=== PATIENT | male | born 1960 | race Two or more races ===

== ENCOUNTER 2020-10-02 10:40 | Outpatient (REF) | payer MEDICARE, MEDICAID, SELFPAY ==
--- NOTE | ~2020-10-02 | XR_ITS ---
EXAMINATION: RIGHT SHOULDER 4 VIEWS LEFT SHOULDER 4 VIEWS CLINICAL INFORMATION: Pain COMPARISON: None TECHNIQUE: As above FINDINGS: Left shoulder: Minor glenoid spurring. Minor left apical pleural thickening. There is no evidence for any fracture or subluxation. No soft tissue calcifications. Right shoulder: Similar degree of minimal spurring. No fracture subluxation. No radiopaque loose body or focal bony lesion. XR/XR shoulder RT min 2V IMPRESSION: Minor spurring only as above.
--- NOTE | ~2020-10-02 | XR_ITS ---
EXAMINATION: RIGHT SHOULDER 4 VIEWS LEFT SHOULDER 4 VIEWS CLINICAL INFORMATION: Pain COMPARISON: None TECHNIQUE: As above FINDINGS: Left shoulder: Minor glenoid spurring. Minor left apical pleural thickening. There is no evidence for any fracture or subluxation. No soft tissue calcifications. Right shoulder: Similar degree of minimal spurring. No fracture subluxation. No radiopaque loose body or focal bony lesion. XR/XR shoulder LT min 2V IMPRESSION: Minor spurring only as above.
== END 2020-10-02 10:41 | disposition home or self-care (01) ==
LOC: HO.XRAY 10:40
PROVIDERS: PCP Family Medicine; Visit Provider Emergency Medicine
DX: M25.511 Pain in right shoulder (principal); M25.512 Pain in left shoulder
CPT/HCPCS: 73030

== ENCOUNTER 2020-10-26 09:39 | Outpatient (REF) | payer MEDICARE, MEDICAID, SELFPAY ==
--- NOTE | 2020-10-28 11:11 | MHC.AU.ANH ---
Adult Audiological Evaluation Date of Visit: 10/26/20 Cut Tobacco Bulker Used: Hong Konger- In Person Reason for Appointment: History of congenital hearing loss. Patient communicates in verbal Hong Konger. Patient has been using a pair of Phonak Pepper B50-UP's, obtained in 2017 while living in [place]. The left hearing aid has been lost. The right hearing aid was held together with tape, and was attached to the left mold. Ear History: Ear Deformity: None Reported Recent Ear Pain: Both Ears Family History of Hearing Loss?: Yes: Cousin Recent Ear Infections: None Reported Ear Infections in Childhood: None Reported History of Ear Wax Buildup: None Reported Previous Ear Surgery: None Reported Bothersome Tinnitus/Ringing/Noises in Ears: None Reported Ear used on the phone: Right Ear Blocked/Full Sensation in Ear(s): None Reported History of occupational noise exposure?: No History: No Medical History: Medical History: Headache, Heart Problems, High Blood Pressure Otoscopy: Right Ear: Unremarkable Left Ear: Unremarkable Tympanometry: Tympanometry performed due to: To assess integrity of the middle ear system Right Ear: Normal Middle Ear System (Type A) Left Ear: Normal Middle Ear System (Type A) Hearing Evaluation: Transducer(s) Used: Insert Earphones Method: Conventional Audiometry Stimuli Used: Pure Tones Right Ear: Description of Hearing: Severe to profound sensorineural hearing loss Left Ear: Description of Hearing: Severe to profound sensorineural hearing loss Speech Recognition Threshold (SRT): Method Used: Recorded Lists Stimuli Used: Hong Konger Trisyllable Words Right Ear: 90 dBHL Left Ear: 95 dBHL Word Discrimination: Method: Recorded Lists Word Lists Used: Lista Bisil?bica (Hong Konger) Right Ear: 76% at 105 dBHL Left Ear: 48% at 110 dBHL Recommendations: Audiological re-evaluation in one year. Per Phonak Target, the hearing aid he was wearing on the left ear was programmed for the right ear. It was held together with tape. The left hearing aid has been lost. He is unable to communicate without amplification. A prior authorization will be submitted to the patient's insurance for new hearing aids. Impressions were taken bilaterally and will be kept in Hold drawer until prior authorization is received. If able to proceed, a pair of Phonak Pepper P70-UP in [address] [place] [address] will be ordered, with canal-lock molds. Diagnosis: Primary Diagnosis: H90.3 Bilateral Sensorineural Hearing Loss Signature: Provider: Merry Burch, HUSEYIN-A
--- NOTE | 2020-10-28 11:12 | MHC.AU.MED ---
Medical Clearance for Hearing Instrumentation Date: 10/28/20 Patient Name: Bereket Parks Date of : 1960 Referring Provider: Adelaida Elizondo MD We have seen your patient on 10/26/20 and have determined that they are a candidate for amplification (See accompanying report). Specifically, they would benefit from: Hearing aid use in both ears There is a statute that addresses Medical Evaluation Requirements prior to fitting a patient with a hearing aid. According to [place] statute 265 CMR:6.03(1), (a) General. Except as provided in 265 CMR 6.03(1)(b), a paper wood cutter shall not sell a hearing aid unless the prospective user has presented to the paper wood cutter a written statement signed by a licensed physician that states that the patient's hearing loss has been medically evaluated and the patient may be considered a candidate for a hearing aid. The medical evaluation must have taken place within the preceding six months. Please note: Due to the [place] Statute referenced above, we cannot accept a signature other than that of a licensed physician. VARIETY PERFORMER and PA signatures cannot be accepted. I am in agreement with the above recommendation. There is no medical contraindication for hearing instrumentation. Physician Signature Date Physician Name (Printed)
--- NOTE | 2020-10-28 11:12 | MHC.AU.HAS ---
Hearing Aid Evaluation Date of Visit: 10/26/20 Slope Runner Used: Hebrew- In Person Historical Information: Description of Hearing: Severe to profound sensorineural hearing loss bilaterally Current personal amplification information, if applicable: Phonak Pepper B50-UP, obtained in 2018 in [place]. Summary: Patient was seen today for audiological evaluation (see separate report for details). He previously obtained a pair of Phonak Pepper B50-UP hearing aids in 2018 in [place]. The left side has been lost. The right side was held together with tape, and was being worn on the left side with the left mold. Patient is unable to communicate without hearing aids. Hearing Aid Prescription: Based on the individual?s shared listening needs, communication environments, dexterity, desire for connectivity, and personal preferences, the following prescription for amplification has been made: Right ear: Youth Director: Phonak Model: Pepper P70--UP Battery Size: 675 Color: 01 Beige Type of Mold: Canal-Lock Left ear: Youth Director: Phonak Model: Pepper P70-UP Battery Size: 675 Color: 01 Beige Type of Mold: Canal-Lock Action Taken/Action Needed: Earmold Impressions Taken Prior authorization to be requested Medical Clearance to be requested from PCP/ENT Hearing Instrument Fitting to be scheduled when materials arrive Primary Diagnosis: H90.3 Bilateral Sensorineural Hearing Loss Signature: Provider: Merry Burch, HUSEYIN-A
--- NOTE | 2020-12-24 07:58 | MHC.AU.HAS ---
Hearing Aid Evaluation Date of Visit: 10/26/20 Cooling Machine Operator Used: Yi- In Person Historical Information: Description of Hearing: Severe to profound sensorineural hearing loss bilaterally Current personal amplification information, if applicable: Phonak Pepper B50-UP, obtained in 2018 in [place]. Summary: Patient was seen today for audiological evaluation (see separate report for details). He previously obtained a pair of Phonak Pepper B50-UP hearing aids in 2018 in [place]. The left side has been lost. The right side was broken in several places, held together with tape, and was being worn on the left side with the left mold. The instrument had poor sound quality, as expected given its condition, and is not able to provide sufficient benefit. The repair warranty and loss/damage warranty has for both instruments. Patient has significant hearing loss and is unable to communicate without hearing aids. A new hearing aid will be needed to replace the lost left instrument. A replacement for the right side is also recommended, given that it is broken, functioning poorly, and out of warranty. It is also advisable to have a matching pair of instruments, as they are designed to work together. If the instruments were not matching, the patient would miss out of on several important benefits of a binaural fit, such as the background noise filtering. Having two different models would also lead to a unbalanced, undesirable sound perception, as each one would be processing sound differently. Hearing Aid Prescription: Based on the individual?s shared listening needs, communication environments, dexterity, desire for connectivity, and personal preferences, the following prescription for amplification has been made: Right ear: Metal Welder: Phonak Model: Pepper P70--UP Battery Size: 675 Color: 01 Beige Type of Mold: Canal-Lock Left ear: Metal Welder: Phonak Model: Pepper P70-UP Battery Size: 675 Color: 01 Beige Type of Mold: Canal-Lock Action Taken/Action Needed: Earmold Impressions Taken Prior authorization to be requested Medical Clearance to be requested from PCP/ENT Hearing Instrument Fitting to be scheduled when materials arrive Primary Diagnosis: H90.3 Bilateral Sensorineural Hearing Loss Signature: Provider: Merry Burch, CCC-A
== END 2020-10-26 09:40 | disposition home or self-care (01) ==
LOC: HO.SH 09:39
PROVIDERS: Visit Provider Family Medicine
DX: Z46.1 Encounter for fitting and adjustment of hearing aid (principal); H90.3 Sensorineural hearing loss, bilateral
CPT/HCPCS: 92557; 92567; 92591; V5275

== ENCOUNTER 2020-11-02 09:57 | Outpatient (REF) | payer MEDICARE, MEDICAID, SELFPAY ==
--- NOTE | ~2020-11-02 | XR_ITS ---
EXAMINATION: XR CERVICAL SPINE CLINICAL INFORMATION: Radiculopathy. COMPARISON: None. TECHNIQUE: AP, lateral, open-mouth, and bilateral oblique views of the cervical spine. FINDINGS: Straightening of the normal cervical lordosis, which may be positional or related to muscular spasm. Minimal grade 1 retrolisthesis of C6 and C7. No acute fracture. No loss of vertebral body height. Prominent multilevel loss of intervertebral disc height with anterior endplate ossific, most severe at C4-C7. Multilevel bilateral facet arthropathy. Diffuse multilevel bilateral neural foraminal stenosis. Normal atlantoaxial alignment. Unremarkable prevertebral soft tissues. XR/XR cervical spine 4V IMPRESSION: Straightening of the normal cervical lordosis, which may be positional or related to muscular spasm. Minimal grade 1 retrolisthesis of C6 and C7. Diffuse multilevel degenerative disc disease, most prominent at C4-C7. Multilevel bilateral facet arthropathy and bilateral neural foraminal stenosis.
== END 2020-11-02 09:58 | disposition home or self-care (01) ==
LOC: HO.XRAY 09:57
PROVIDERS: PCP Emergency Medicine; Visit Provider Emergency Medicine
DX: M54.10 Radiculopathy, site unspecified (principal)
CPT/HCPCS: 72050

== ENCOUNTER 2020-11-13 12:50 | Outpatient (REF) | payer MEDICARE, SELFPAY | END 2020-11-13 12:51 | disposition home or self-care (01) | LOC: HO.HOSX 12:50 | PROVIDERS: Visit Provider Physician Assistant | DX: Z13.89 Encounter for screening for other disorder (principal) ==

== ENCOUNTER → 2020-11-24 09:54 | Outpatient (BNVA) | payer MEDICARE, MEDICAID, SELFPAY | PROVIDERS: Visit Provider Physician Assistant | DX: M54.12 Radiculopathy, cervical region (principal) | CPT/HCPCS: 99202 ==

== ENCOUNTER 2020-11-25 10:12 | Outpatient (REF) | payer MEDICARE, MEDICAID, SELFPAY ==
--- NOTE | ~2020-11-25 | MR_ITS ---
EXAMINATION: MR CERVICAL SPINE WITHOUT CONTRAST CLINICAL INFORMATION: Bilateral shoulder and neck pain with laying down. No injury. Epidural injections 2015. COMPARISON: None. TECHNIQUE: MRI of the cervical spine was obtained using routine sequences without contrast. FINDINGS: There is maintained cervical lordosis. The vertebral heights and alignment is normal. There are disc desiccation changes at all disc levels with mild loss of disc height at C4-C5, C5-C6, C6-C7 and C7-T1 disc levels. The craniovertebral junction and the C1-C2 alignment is normal. The cervical medullary junction and CSF spaces normal. At C2-C3 disc level, there is no significant disc bulge, herniation or spinal canal stenosis. There is mild right neural foraminal narrowing from uncovertebral and facet joint hypertrophy. The left neural foramina is patent. The spinal canal is capacious. At C3-C4 disc level, there is small central disc herniation completely effacing the ventral thecal sac and mildly indenting the ventral cord with moderate AP canal stenosis. Mild narrowing of bilateral neural foramina slightly greater on the left from uncovertebral hypertrophic changes is noted. At C4-C5 disc level, there is a disc bulge/osteophyte complex flattening the ventral thecal sac and the cord and resulting in moderate canal stenosis. There is bilateral moderate narrowing of neural foramina from uncovertebral hypertrophic changes. At C5-C6 disc level, there is disc bulge/osteophyte complex effacing the ventral thecal sac and mildly flattening the cord resulting in moderate spinal canal stenosis. There is bilateral moderate narrowing of neural foramina. At C6-C7 disc levels, there is a disc bulge/osteophyte complex eccentric to left paramidline region resulting in dtyp-lr-marmwloz cord compression. There is severe narrowing of left and moderate right neural foramina from disc herniation/osteophyte complex and uncovertebral hypertrophic changes. At C7-T1 disc level, there is disc bulge/osteophyte complex resulting in moderate spinal canal stenosis. There is bilateral neural foraminal narrowing from uncovertebral hypertrophic changes. The cord signal is preserved. The bone marrow signal and paravertebral soft tissues are normal. MR/MR cervical spine wo con IMPRESSION: Multilevel degenerative disc bulge/osteophyte complex resulting in spinal canal stenosis at C3-C4, C5-C6, C6-C7 and C7-T1 disc levels. There is cord compression with flattening at C6-C7 disc level slightly eccentric to the left. There is bilateral narrowing of neural foramina at most of these disc levels, severe on the left at the C6-C7 disc level. There is no abnormal signal in the cord at this time. Results were called immediately to referring physician by phone at 11:33 AM,
== END 2020-11-25 10:13 | disposition home or self-care (01) ==
LOC: HO.MRI 10:12
PROVIDERS: Visit Provider Emergency Medicine
DX: M54.10 Radiculopathy, site unspecified (principal)
CPT/HCPCS: 72141

== ENCOUNTER → 2021-01-04 10:39 | Outpatient (BNVA) | payer MEDICARE, MEDICAID, SELFPAY | PROVIDERS: Visit Provider Anesthesiology | DX: M50.30 Other cervical disc degeneration, unspecified cervical region (principal); M54.12 Radiculopathy, cervical region; G89.4 Chronic pain syndrome | CPT/HCPCS: 99202 ==

== ENCOUNTER 2021-02-11 12:29 | Outpatient (REF) | payer MEDICARE, MEDICAID, SELFPAY ==
--- NOTE | 2021-02-11 14:00 | MHC.AU.HFA ---
Hearing Instrument Fitting- Adult- Binaural Date of Visit: 02/11/21 Topstitcher Lockstitch Used: Kazakh- In Person Hearing Instruments Dispensed: Right Ear: Crm Specialist: Phonak Model: Pepper P70--UP Serial Number: [id number] Repair Warranty: 04/11/2024 Loss and Damage Warranty: 04/11/2024 Service Plan: 02/11/2022 Battery Size: 675 Color: 01 Beige Type of Mold: Microsonic M2000 Clear Canal-Lock Left Ear: Crm Specialist: Phonak Model: Pepper P70-UP Serial Number: [id number] Repair Warranty: 04/11/2024 Loss and Damage Warranty: 04/11/2024 Service Plan: 02/11/2022 Battery Size: 675 Color: 01 Beige Type of Mold: Microsonic M2000 Clear Canal-Lock Summary of Fitting: Target gain set to 100%. Feedback manager development run. Verifit performed and levels adjusted to better reach targets. Patient was pleased with the sound and did not feel any additional adjustments were necessary at this time. Hearing aid care and maintenance were discussed and demonstrated. Patient is an experienced hearing aid user. Patient did not want the hearing aids paired to his phone at this time. He called a family member, and verified that he could still hear them well by holding the phone up to his ear. Recommendations: Patient will call for hearing aid follow-up as needed. Diagnosis Code(s): Primary Diagnosis: H90.3 Bilateral Sensorineural Hearing Loss Signature: Provider: Merry Burch, [facility]
== END 2021-02-11 12:30 | disposition home or self-care (01) ==
LOC: HO.HAP 12:29
PROVIDERS: Visit Provider Family Medicine
DX: Z46.1 Encounter for fitting and adjustment of hearing aid (principal); H90.3 Sensorineural hearing loss, bilateral
CPT/HCPCS: V5011; V5020; V5160; V5261; V5264; V5266

== ENCOUNTER 2021-03-26 11:22 | Day surgery (SDC) | payer MEDICARE, MEDICAID, SELFPAY ==
[2021-03-22 10:46] VITALS: BMI 19.2
--- NOTE | 2021-03-25 12:08 | HO.ANESPROP2 ---
Documented by User: Kusum Milian NP 03/25/21 12:08 HPI - Anesthesia Eval Consult details Narrative: 61yo M for C7-T1 Epidural Steroid Injection [facility] Active Problems Active Problems: All Active Problems (Updated 01/04/21 @ 12:51 by Jonathan Leon MD) Chronic pain syndrome (Acute) Degeneration, intervertebral disc, cervical (Acute) Cervical radiculopathy (Acute) Past Medical History Medical History (System 01/05/21 @ 14:09 by Beverly Tapia) Chronic pain syndrome Degeneration, intervertebral disc, cervical High blood pressure High cholesterol Muscle pain Social History Social History (System 01/05/21 @ 14:09 by Beverly Tapia) Patient Tobacco Use Status: Former Tobacco user Use of substances other than those prescribed or required for medical reasons: No Are you DNR?: No Advance Directives: No Advance Directives Information Provided: No Advance Directives on File: No Current occupational status: disabled Current occupation: rt hand Meds Allergies Allergy/AdvReac Type Severity Reaction Status Date / Time Penicillins Allergy Unknown N/A Verified 01/05/21 14:09 Home Medications Medication Instructions Recorded Confirmed Last Taken Type acetaminophen 325 mg capsule 325 mg PO QID PRN 11/24/20 Unknown History atorvastatin 10 mg tablet 10 mg PO BEDTIME 11/24/20 Unknown History baclofen 5 mg tablet 5 mg PO BEDTIME 11/24/20 Unknown History gabapentin 100 mg capsule 100 mg PO BEDTIME 11/24/20 Unknown History nabumetone 500 mg tablet 500 mg PO BID 11/24/20 Unknown History lisinopril 10 1 tab PO DAILY 03/26/21 03/26/21 03/26/21 History mg-hydrochlorothiazide 12.5 mg tablet Exam Exam Date and Time: March 25, 2021 1208 Height,Weight and Vital Signs: Height 5 ft 6 in Weight 53.977 kg Assessment and Plan Assessment Anesthesia Assessment: Chart Reviewed Documented by User: Em Polk MD 03/26/21 13:40 [facility] Past Medical History Medical History (System 01/05/21 @ 14:09 by Beverly Tapia) Chronic pain syndrome Degeneration, intervertebral disc, cervical High blood pressure High cholesterol Muscle pain Family History Family history of problems with anesthesia: No Surgical History History of Problems with Anesthesia: No Social History Social History (System 01/05/21 @ 14:09 by Beverly Tapia) Patient Tobacco Use Status: Former Tobacco user Use of substances other than those prescribed or required for medical reasons: No Are you DNR?: No Advance Directives: No Advance Directives Information Provided: No Advance Directives on File: No Current occupational status: disabled Current occupation: rt hand Meds Allergies Allergy/AdvReac Type Severity Reaction Status Date / Time Penicillins Allergy Unknown N/A Verified 01/05/21 14:09 Home Medications Medication Instructions Recorded Confirmed Last Taken Type acetaminophen 325 mg capsule 325 mg PO QID PRN 11/24/20 Unknown History atorvastatin 10 mg tablet 10 mg PO BEDTIME 11/24/20 Unknown History baclofen 5 mg tablet 5 mg PO BEDTIME 11/24/20 Unknown History gabapentin 100 mg capsule 100 mg PO BEDTIME 11/24/20 Unknown History nabumetone 500 mg tablet 500 mg PO BID 11/24/20 Unknown History lisinopril 10 1 tab PO DAILY 03/26/21 03/26/21 03/26/21 History mg-hydrochlorothiazide 12.5 mg tablet Exam Airway Mallampati Class: II (Implant upper top tooth) TM Dist: >3cm Neck ROM: Full Heart: rrr Lungs: cta Assessment and Plan Assessment Anesthesia Assessment: Anesthesia Plan Discussed and Chart Reviewed Final Anesthetic Review Family History of Problems with Anesthesia: No History of Problems with Anesthesia: No NPO: Yes (Sip water to go) ASA Class: II Final Preanesthetic Review: No Changes in Pt Med Stat, Meds/Allgs Chart Reviewed and Consent Obtained/Reviewed Patient Risk: Intermediate Procedure Risk: Intermediate Anesthetic Plan Anesthetic Plan: MAC: Disposition: Standard PACU
--- NOTE | ~2021-03-26 | FL_ITS ---
EXAMINATION: XR FLUOROSCOPY WITH IMAGES CLINICAL INFORMATION: Cervical epidural injection COMPARISON: MR cervical spine 11/25/2020, radiographs cervical spine 11/02/2020 TECHNIQUE: Fluoroscopy performed by Dr. Jonathan Leon. Fluoroscopy time: 0.2 minutes DAP: 0.273 Gycm2 Images: 1 FINDINGS: There is spinal needle at the cervical thoracic junction. There is some contrast around the needle tip and likely epidural space. No vascular communication demonstrated. Multilevel degenerative changes again noted cervical spine. FL/FL guidance in OR IMPRESSION: Fluoroscopy for pain management procedure.
[2021-03-26 12:22] VITALS: BP 133/68; PULSE 86; RESP 16; TEMP 36.7; O2SAT 99
[2021-03-26] MEDS: Lactated Ringers 1,000 ML 100 ML IVCONT (12:30)
--- NOTE | 2021-03-26 13:37 | MHC.SHP ---
Pre-Procedural Eval Section A Date of Service: 03/26/21 Section B Chief Complaint: cervical radiculopathy Details of Present Illness: as above Relevant Family History (Specify if Yes): No Relevant Social History: None Present Medications: None Medical History: No relevant PMH History of Previous Operations: No relevant previous surgery Allergies: Allergies Allergy/AdvReac Type Severity Reaction Status Date / Time Penicillins Allergy Unknown N/A Verified 01/05/21 14:09 Review of Systems Sugical H&P ROS: Negative: Constitution, Cardiovascular, Respiratory, Neurological, Psychiatric, Hem-Onc, Allergic/Immunologic, Gastrointestinal, Genitourinary, Musculoskeletal, Integumentary, Endocrine and Eyes/Ears/Nose/Throat Exam Surgical H&P Exam: Normal: HEENT, Normal: Heart, Normal: Lungs, Normal: Extremities, Normal: Abdomen, Normal: Skin and Normal: Neurological Plan Diagnosis/Plan: Unchanged I have reviewed the history and physical and performed a pertinent physical examination on my patient. No changes have occurred unless specified.
[2021-03-26 14:13] VITALS: BP 115/64; PULSE 83; RESP 16; TEMP 36.1; O2SAT 100
[2021-03-26 14:25] VITALS: BP 117/60; PULSE 69; RESP 16; O2SAT 98
--- NOTE | 2021-03-26 14:25 | P.BOP_ITS ---
Brief Operative Note Date of Service: 03/26/21 Pre-op diagnosis: cervical radiculopathy , C6-C7 spinal stenosis. Post-op diagnosis: same Procedure: C7-T1 interlaminar epidural steroid injection. Surgeon: Jonathan Leon MD Anesthesia: GETA Was an Supervisor Cook House used for this Procedure?: No Estimated blood loss (mL): 0 Condition: stable Disposition: PACU
--- NOTE | 2021-03-26 14:27 | P.OP_ITS ---
Operative Note Operative Note Date of Service: 03/26/21 Narrative: Bereket is very pleasant Zambian-speaking gentleman who came today to the operating room for the treatment of the low back pain with caudal epidural steroid injection.? After explaining the patient informed consent with floor installation mechanic Tobias he was brought to the operating room he was positioned on the operating table prone with a pillow under her pelvis.? Monegasque? Society monitors were applied and patient was minimally sedated. time-out was performed delineating correct site and side of the procedure and risks associated with the procedure.? No antibiotics required for this procedure.? No DVT prophylaxis req uired for this procedure. His posterior neck as well as posterior upper back were prepped with ChloraPrep and draped with sterile towels. C-arm was brought over the operating field and sq picture of the C7 and T1 vertebra were demonstrated on the screen. The left lamina border of the T1 vertebra was chosen as a starting point of the injection.? a skin wheal was raised in the projection of point in the interest using lidocaine 1% preservative-free. 22 gauge Touhy needle was inserted through the skin wheal advanced toward the left interlaminar space on anterior posterior and contralateral oblique intermittent views. Loss of resistance to saline technique was used to detect epidural space. When the epidural space was detected on loss of resistance injection of the contrast was performed demonstrating epidural spread of the contrast. After that injection of the treatment solution containing normal saline 5 cc mixed with Decadron 8 mg and trace amount of preservative-free lidocaine 1% was performed. The patient was instructed to exhaling home his breath while injection was completed. After that the needle was removed and sterile dressing was applied. The patient tolerated procedure well. He was taken outside of the operating room to recovery room where he recovered uneventfully.
[2021-03-26 14:39] VITALS: BP 111/62; PULSE 68; RESP 16; O2SAT 98
[2021-03-26 14:51] VITALS: BP 130/57; PULSE 68; RESP 16; TEMP 36.1; O2SAT 98
== END 2021-03-26 15:39 | disposition home or self-care (01) ==
PROVIDERS: PCP Emergency Medicine; Visit Provider Anesthesiology
PROC: 3E0R33Z Introduction of Anti-inflammatory into Spinal Canal, Percutaneous Approach (ICD-10-PCS; CPT 62321; principal; 2021-03-26 13:10)
DX: M54.12 Radiculopathy, cervical region (principal); M48.02 Spinal stenosis, cervical region; G89.4 Chronic pain syndrome; M50.30 Other cervical disc degeneration, unspecified cervical region; M54.2 Cervicalgia; M54.9 Dorsalgia, unspecified; M79.10 Myalgia, unspecified site; I10 Essential (primary) hypertension; E78.00 Pure hypercholesterolemia, unspecified; Z88.0 Allergy status to penicillin; Z87.891 Personal history of nicotine dependence; Z79.899 Other long term (current) drug therapy
CPT/HCPCS: 62321; J1100; J2250; J3010; J3300; Q9967

== ENCOUNTER 2021-06-23 09:10 | Outpatient (REF) | payer MEDICARE, MEDICAID, SELFPAY | END 2021-06-23 09:11 | disposition home or self-care (01) | LOC: HO.HAP 09:10 | PROVIDERS: Visit Provider Nurse Practitioner | DX: Z13.89 Encounter for screening for other disorder (principal) ==

== ENCOUNTER 2021-08-04 11:21 | Outpatient (REF) | payer MEDICARE, MEDICAID, SELFPAY | END 2021-08-04 11:22 | disposition home or self-care (01) | LOC: HO.HAP 11:21 | PROVIDERS: Visit Provider Emergency Medicine | DX: Z13.89 Encounter for screening for other disorder (principal) ==

== ENCOUNTER 2021-08-10 09:22 | Outpatient (REF) | payer MEDICARE, MEDICAID, SELFPAY | END 2021-08-10 09:23 | disposition home or self-care (01) | LOC: HO.HAP 09:22 | PROVIDERS: Visit Provider Emergency Medicine | DX: Z46.1 Encounter for fitting and adjustment of hearing aid (principal); H90.3 Sensorineural hearing loss, bilateral | CPT/HCPCS: 92592 ==

== ENCOUNTER 2021-08-24 10:18 | Outpatient (REF) | payer MEDICARE, MEDICAID, SELFPAY | END 2021-08-24 10:19 | disposition home or self-care (01) | LOC: HO.HAP 10:18 | PROVIDERS: Visit Provider Nurse Practitioner | DX: Z13.89 Encounter for screening for other disorder (principal) ==

== ENCOUNTER 2022-05-16 09:00 | Outpatient (REF) | payer MEDICARE, MEDICAID, SELFPAY | END 2022-05-16 09:01 | disposition home or self-care (01) | LOC: HO.HAP 09:00 | PROVIDERS: Visit Provider Registered Nurse | DX: Z13.89 Encounter for screening for other disorder (principal) ==

== ENCOUNTER 2022-06-06 10:31 | Outpatient (REF) | payer MEDICARE, MEDICAID, SELFPAY ==
--- NOTE | ~2022-06-06 | XR_ITS ---
EXAMINATION: XR ELBOW, RIGHT CLINICAL INFORMATION: Right elbow pain. COMPARISON: None available. TECHNIQUE: AP, lateral, and oblique views of the right elbow. FINDINGS: The bones and soft tissues are normal. No fracture or joint effusion. Alignment is anatomic. Joint spaces are maintained. XR/XR elbow RT min 3V IMPRESSION: Unremarkable right elbow.
== END 2022-06-06 10:32 | disposition home or self-care (01) ==
LOC: HO.XRAY 10:31
PROVIDERS: PCP Registered Nurse; Visit Provider Registered Nurse
DX: M25.521 Pain in right elbow (principal)
CPT/HCPCS: 73080

== ENCOUNTER 2022-09-06 10:02 | Outpatient (REF) | payer MEDICARE, MEDICAID, SELFPAY | END 2022-09-06 10:03 | disposition home or self-care (01) | LOC: HO.HAP 10:02 | PROVIDERS: Visit Provider Registered Nurse | DX: Z46.1 Encounter for fitting and adjustment of hearing aid (principal); H90.3 Sensorineural hearing loss, bilateral | CPT/HCPCS: V5266 ==

== ENCOUNTER 2022-09-13 09:00 | Outpatient (RCR) | payer MEDICARE, MEDICAID, SELFPAY | END 2022-12-09 11:51 | disposition home or self-care (01) | LOC: HO.PT 09:00 | PROVIDERS: PCP Registered Nurse; Visit Provider Registered Nurse | DX: M79.604 Pain in right leg (principal) | CPT/HCPCS: 97110; 97162 ==

== ENCOUNTER 2022-09-16 08:32 | Outpatient (REF) | payer MEDICARE, MEDICAID, SELFPAY ==
--- NOTE | 2022-09-16 09:21 | MHC.AU.HA3 ---
Hearing Instrument Follow-Up- Binaural Date of Visit: 09/16/22 Right Ear: Dwayne, Model, Color, Serial Number: Ama Pabon P70-UP SN: [id number] Color: Beige Packing Checker Repair Warranty: 04/11/2024 Packing Checker Loss and Damage Warranty: 04/11/2024 [facility] Service Plan: 02/11/2022 Battery Size: 675 Earmold/Dome/CShell/SlimTip:Microsonic M2000 Clear Canal-Lock Dispensed By: [facility] [employer] Date of Fittin02/11/2021 Left Ear: Dwayne, Model, Color, Serial Number: Ama Pabon P70-UP SN: [id number] Color: Beige Packing Checker Repair Warranty: 04/11/2024 Packing Checker Loss and Damage Warranty: 04/11/2024 [facility] [employer] Service Plan: 02/11/2022 Battery Size: 675 Earmold/Dome/CShell/SlimTip: Microsonic M2000 Clear Canal-Lock Dispensed By: [facility] Date of Fittin02/11/2021 Follow-Up Summary: Bereket returned for routine hearing aid maintenance following an updated audio (see separate report). The left tubing had slipped out of the ear mold and Bereket reported the length was too short. Tubes were extremely hard. Cleaned both hearing aids and ear molds. Replaced tubing and trimmed to Bereket's preference. Did not make programming changes as hearing is stable and Bereket has no concerns regarding the sound quality at this time. Bereket inquired about a smaller hearing aid to wear to bed as he lives alone and needs to be able to hear if someone knocks on the door, etc. Discussed severity of loss and need for power hearing aid. Suggested sleeping with one hearing aid on ear facing up or looking into equipment for alerts through lights or vibrations. Recommendations: Hearing instrument maintenance in 6 months, or sooner if needed. Please contact our clinic with any questions or concerns. Diagnosis Code(s): Primary Diagnosis: H90.3 Bilateral Sensorineural Hearing Loss Signature: Provider: Sandeep Simpson, CCC-A
== END 2022-09-16 08:33 | disposition home or self-care (01) ==
LOC: HO.SH 08:32
PROVIDERS: Visit Provider Registered Nurse
DX: H90.3 Sensorineural hearing loss, bilateral (principal)
CPT/HCPCS: 92557; 92593

== ENCOUNTER 2022-12-07 09:44 | Outpatient (REF) | payer MEDICARE, MEDICAID, SELFPAY | END 2022-12-07 09:45 | disposition home or self-care (01) | LOC: HO.HAP 09:44 | PROVIDERS: Visit Provider Registered Nurse | DX: Z46.1 Encounter for fitting and adjustment of hearing aid (principal); H90.3 Sensorineural hearing loss, bilateral | CPT/HCPCS: V5266 ==

== ENCOUNTER 2023-03-10 10:29 | Outpatient (REF) | payer MEDICARE, MEDICAID, SELFPAY | END 2023-03-10 10:30 | disposition home or self-care (01) | LOC: HO.HAP 10:29 | PROVIDERS: Visit Provider Registered Nurse | DX: Z46.1 Encounter for fitting and adjustment of hearing aid (principal); H90.3 Sensorineural hearing loss, bilateral | CPT/HCPCS: V5266 ==

== ENCOUNTER 2023-03-20 11:04 | Emergency (ER) | payer MEDICARE, MEDICAID, SELFPAY ==
--- NOTE | ~2023-03-20 | XR_ITS ---
EXAMINATION: XR CHEST CLINICAL INFORMATION: Chest pain COMPARISON: Chest radiograph from 05/31/2009 TECHNIQUE: 2 views of the chest were obtained. FINDINGS: No focal consolidation. No pneumothorax. Trachea is midline. Cardiomediastinal silhouette is not enlarged. No large pleural effusion. Degenerative changes of the thoracolumbar spine. Soft tissues are unremarkable. XR/XR chest 2V IMPRESSION: No acute cardiopulmonary process.
[2023-03-20 11:51] VITALS: BP 144/73; PULSE 79; RESP 18; TEMP 36.7; O2SAT 99; BMI 19.7
--- NOTE | 2023-03-20 11:51 | ED_ITS ---
HPI - Skin/Abscess/Foreign Bdy General Chief complaint: Chest Pain Stated complaint: Rash Time Seen by Provider: 03/20/23 19:40 Source: patient, family, RN notes reviewed and it communications specialist Mode of arrival: ambulatory Limitations: language barrier History of Present Illness HPI narrative: 63-year-old male presents for evaluation of 2 separate complaints He complains of a rash that started Monday and Monday and has been worsening The rash is only on his abdomen and chest He can not think of anything that caused the rash. Denies any new medications, lotions, soaps, detergents He states the rash is very itchy He also complains of chest pain that has been coming and going for the last few days He reports when he pushes on his chest it causes the pain and he does not have the pain if he is not pushing on his chest Related Data Home Medications Medication Instructions Recorded Confirmed acetaminophen 325 mg capsule 325 mg PO QID PRN 11/24/20 atorvastatin 10 mg tablet 10 mg PO BEDTIME 11/24/20 baclofen 5 mg tablet 5 mg PO BEDTIME 11/24/20 gabapentin 100 mg capsule 100 mg PO BEDTIME 11/24/20 nabumetone 500 mg tablet 500 mg PO BID 11/24/20 lisinopril 10 1 tab PO DAILY 03/26/21 03/26/21 mg-hydrochlorothiazide 12.5 mg tablet Previous Rx's Medication Instructions Recorded diphenhydramine HCl 25 mg capsule 25 mg PO TID PRN itching #20 caps 03/20/23 (Benadryl) prednisone 20 mg tablet 40 mg (2 x 20 mg) PO DAILY #8 tabs 03/20/23 Allergies Allergy/AdvReac Type Severity Reaction Status Date / Time Penicillins Allergy Unknown N/A Verified 01/05/21 14:09 Review of Systems 2 Constitutional: Constitutional: Denies chills and Denies fever(s) Cardiovascular: Cardiovascular: Reports chest pain and Denies dyspnea Respiratory: Respiratory: Denies cough and Denies dyspnea Integumentary/Breasts: Skin/Breast: Reports erythema and Reports rash PMFSH Past Medical History Medical History (Updated 03/20/23 @ 20:47 by Omar Flower) Personal history of nicotine dependence Sensorineural hearing loss (SNHL) of both ears Chronic pain syndrome Degeneration, intervertebral disc, cervical High blood pressure Muscle pain High cholesterol Social History Social History (System 01/05/21 @ 14:09 by Beverly Tapia) Patient Tobacco Use Status: Former Tobacco user Advance Directives: No Advance Directives Information Provided: No Current occupational status: disabled Current occupation: rt hand Physical Exam 2 Vital Signs: Vital Signs: Last Vital Signs Temp 98.1 F 03/20/23 20:26 Pulse 92 03/20/23 20:26 Resp 17 03/20/23 20:26 BP 136/87 03/20/23 20:26 Pulse Ox 99 03/20/23 20:26 O2 Del Method Room Air 03/20/23 20:26 BMI result Body Mass Index 19.7 Const: General: healthy appearing, comfortable, no acute distress, alert and awake Nutritional Appearance: well nourished Orientation/consciousness: p atient oriented x3 HEENT: Head: Yes normocephalic and Yes atraumatic Throat: Yes posterior oropharynx normal Eyes: Eyelids: Yes eyelids normal Conjunctivae: conjunctivae normal S clerae: sclerae normal Corneas: corneas normal Pupils: Equal, round and reactive pupils present EOM: EOMs intact bilaterally Resp: Effort & Inspection: normal respiratory effort, able to speak in complete sentences, no audible wheezes and not labored Auscultation: clear to auscultation bilaterally Skin: Other: Mildly erythematous maculopapular rash mostly to left side of the chest but with some scaly lesions to the abdomen and anterior neck. No rashes to the face, extremities or back General skin exam: elasticity normal Neuro: General: patient oriented x3 Cranial nerves: Yes Equal, round and reactive pupils present and Yes Bilaterally intact EOM present Cognition (Neuro): normal cognition Course Course Course Narrative: This is an RME: Additional HPI, ROS, PE not included below will be deferred to primary provider. This is a 83-dgnf-zwh-honduran speaking male, with a hx of HTN, HLD, presenting to the emergency department with complaints of chest pain times x3 days as well as itchy rash to his abdomen. No new soaps, lotions, detergents, foods or medication changes. Patient reports that the chest pain is intermittent. Also endorsing some shortness of breath Plan: Labs, EKG, chest x-ray, further ER evaluation needed. Medications Administered Discontinued Medications Generic Name Dose Route Start Last Admin Trade Name Freq PRN Reason Stop Dose Admin Diphenhydramine HCl 50 mg 03/20/23 20:18 03/20/23 20:22 Diphenhydramine Hcl 25 Mg Capsule PO 03/20/23 20:19 50 mg ONCE ONE Administration Prednisone 40 mg 03/20/23 20:12 03/20/23 20:22 Prednisone 20 Mg Tablet PO 03/20/23 20:13 40 mg ONCE ONE Administration Medical Decision Making Medical Decision Making [facility] Narrative: 63-year-old male presents for evaluation rash that looks most consistent with urticaria/allergic reaction. No evidence of airway compromise or swelling at all. Patient be treated with Benadryl and prednisone. No evidence of infectious process. Patient's chest pain is reproducible, most consistent with musculoskeletal origin such as chest wall strain. His cardiac workup was negative including his labs as well as chest x-ray and EKG. Differential Diagnosis Differential Diagnoses: The differential diagnosis associated with the presentation includes Acute rash Dermatitis Urticaria Allergic reaction Chest pain ACS Bronchitis Lab Data [facility] Lab Attestation statement: I reviewed the patient's lab results. No leukocytosis or anemia. Troponin undetectable. 03/20/23 12:07 03/20/23 12:07 Labs: Lab Results 03/20/23 Range/Units 12:07 WBC 8.2 (4.8-10.8) X10*3/uL RBC 4.74 (4.60-5.80) X10*6/uL Hgb 14.5 (14.0-18.0) g/dl Hct 43.4 (42.0-52.0) % MCV 91.6 (80.0-98.0) fL MCH 30.6 (27.0-33.0) pg MCHC 33.4 (31.0-36.0) g/dl RDW 13.9 (11.0-16.0) % Plt Count 277 (160-400) X10*3/uL MPV 10.4 (9.4-12.4) fL Immature Gran % (Auto) 0.4 (0.0-0.4) % Neut % (Auto) 68.9 (45-73) % Lymph % (Auto) 22.9 (20-40) % Stearns % (Auto) 6.7 (2-11) % Eos % (Auto) 0.6 (0-4) % Baso % (Auto) 0.5 (0-2) % Lymph # (Auto) 1.9 (1.2-4.9) X10*3/uL Stearns # (Auto) 0.6 (0.1-1.2) X10*3/uL Eos # (Auto) 0.1 (0.0-0.4) X10*3/uL Baso # (Auto) 0.0 (0.0-0.2) X10*3/uL Abs Immat Gran (auto) 0.03 (0.00-0.03) X10*3/uL Absolute Neuts (auto) 5.7 (2.0-8.3) x10*3/uL Absolute Nucleated RBC 0.000 (0.0-0.012) X10*3/uL Nucleated RBC % (auto) 0.0 (0.0-0.2) /100WBC Sodium 137 (135-145) mmol/L Potassium 4.6 (3.3-5.1) mmol/L Chloride 100 (96-108) mmol/L Carbon Dioxide 26 (22-29) mmol/L Anion Gap 16 (12-20) BUN 14 (9-16) mg/dL Creatinine 1.10 (0.5-1.4) mg/dL Estim Creat Clear Calc 55.6 Estimated GFR > 60 Random Glucose 111 (60-115) mg/dL Calcium 10.2 (8.4-10.2) mg/dL Total Bilirubin 0.4 (0.0-1.0) mg/dL Direct Bilirubin 0.1 (0.0-0.5) mg/dL AST 19 (5-37) U/L ALT 24 (0-40) U/L Alkaline Phosphatase 67 (39-117) U/L Troponin I High Sens < 2.7 (<3.5-35.0) ng/L B-Natriuretic Peptide 11 (<100) pg/mL Total Protein 7.8 (6.5-8.0) g/dL Albumin 4.7 (3.5-5.0) g/dL COVID-19 (MARITA) Negative (Negative) COVID-19 Clin Com See Note Influenza Type A (NEL) Negative (Negative) Influenza Type B (NEL) Negative (Negative) Influenza A & B Note See Note Independent Interpretation I performed an independent interpretation of an: EKG (Normal sinus rhythm with a rate of [address] segment changes) and Plain X-Ray (No acute infiltrates) Discharge Plan Discharge Clinical Impression: Chest pain, Rash Patient Disposition: Home, Self-Care Instructions: Chest Pain (ED), Acute Rash (ED) Additional Instructions: Your rashes possibly related to an allergic reaction It does not appear to be infectious Take prednisone and Benadryl as prescribed You may also use cggm-pcu-xuhmrth hydrocortisone cream Follow-up with your primary doctor and return for new or worsening symptoms Prescriptions: New prednisone 20 mg tablet 40 mg PO DAILY Qty: 8 0RF diphenhydramine HCl [Benadryl] 25 mg capsule 25 mg PO TID PRN (Reason: itching) Qty: 20 0RF No Action lisinopril-hydrochlorothiazide 10-12.5 mg tablet 1 tab PO DAILY Interventions: ED Discharge Assessment Last Done: 03/20/23 21:08 Discharge Date/Time: 03/20/23 21:09
--- NOTE | 2023-03-20 12:00 | ECG_ITS ---
Test Reason : chest pain Blood Pressure : / mmHG Vent. Rate : 070 BPM Atrial Rate : 070 BPM P-R Int : 142 ms QRS Dur : 088 ms QT Int : 358 ms P-R-T Axes : 055 -09 060 degrees QTc Int : 386 ms Normal sinus rhythm Normal ECG No previous ECGs available Referred By: Lilly Mckeon Electronically Signed By:ERIK WATKINS
[2023-03-20 12:19] LABS: MANUAL DIFF FLAG NO
[2023-03-20 12:25] LABS: Basophils Percent Auto 0.5 % (0-2); Eosinophils Absolute Auto 0.1 X10*3/uL (0.0-0.4); Eosinophils Percent Auto 0.6 % (0-4); Hematocrit 43.4 % (42.0-52.0); Hemoglobin 14.5 g/dl (14.0-18.0); Imm Gran Abs Auto 0.03 X10*3/uL (0.00-0.03); Imm Gran Pct Auto 0.4 % (0.0-0.4); Lymphocytes Absolute Auto 1.9 X10*3/uL (1.2-4.9); Lymphocytes Percent Auto 22.9 % (20-40); Mean Corpuscular HGB Conc 33.4 g/dl (31.0-36.0); Mean Corpuscular Hemoglobin 30.6 pg (27.0-33.0); Mean Corpuscular Volume 91.6 fL (80.0-98.0); Mean Platelet Volume 10.4 fL (9.4-12.4); Monocytes Absolute Auto 0.6 X10*3/uL (0.1-1.2); Monocytes Percent Auto 6.7 % (2-11); Neutrophils Absolute Auto 5.7 x10*3/uL (2.0-8.3); Neutrophils Percent Auto 68.9 % (45-73); Platelet Count 277 X10*3/uL (160-400); Red Blood Count 4.74 X10*6/uL (4.60-5.80); Red Cell Distribution Width 13.9 % (11.0-16.0); White Blood Count 8.2 X10*3/uL (4.8-10.8)
[2023-03-20 12:36] LABS: Alanine Aminotransferase 24 U/L (0-40); Albumin Level 4.7 g/dL (3.5-5.0); Alkaline Phosphatase 67 U/L (39-117); Anion Gap 16 (12-20); Aspartate Amino Transferase 19 U/L (5-37); Bilirubin Direct 0.1 mg/dL (0.0-0.5); Bilirubin Total 0.4 mg/dL (0.0-1.0); Blood Urea Nitrogen 14 mg/dL (9-16); COVID-19 Test Negative (Negative); Calcium 10.2 mg/dL (8.4-10.2); Carbon Dioxide 26 mmol/L (22-29); Chloride 100 mmol/L (96-108); Creatinine Clr Calc Pharmacy 55.6; Estimated Glomerular Filt Rate > 60; Glucose Random 111 mg/dL (60-115); IDNOW Serial# 08D9AD1C; Potassium 4.6 mmol/L (3.3-5.1); Sodium 137 mmol/L (135-145); Total Protein 7.8 g/dL (6.5-8.0)
[2023-03-20 12:41] LABS: IDNOW Serial# 152EDE1D; Influenza A Negative (Negative); Influenza B2 Negative (Negative)
[2023-03-20 12:42] LABS: B Type Natriuretic Peptide 11 pg/mL (<100)
[2023-03-20 12:44] LABS: Troponin-I High Sensitivity < 2.7 ng/L (<3.5-35.0)
[2023-03-20 16:57] VITALS: BP 156/75; PULSE 78; RESP 18; TEMP 36.7; O2SAT 98
[2023-03-20] MEDS: predniSONE 20 MG TABLET 40 MG PO (20:22)
[2023-03-20] MEDS: diphenhydrAMINE HCL 25 MG CAPSULE 50 MG PO (20:22)
[2023-03-20 20:26] VITALS: BP 136/87; PULSE 92; RESP 17; TEMP 36.7; O2SAT 99
== END 2023-03-20 21:09 | disposition home or self-care (01) ==
PROVIDERS: Physician Assistant Medical; Emergency Provider Internal Medicine
DX: R07.89 Other chest pain (principal); R21 Rash and other nonspecific skin eruption; R06.02 Shortness of breath; Z11.52 Encounter for screening for COVID-19; Z79.899 Other long term (current) drug therapy
CPT/HCPCS: 36415; 71046; 80048; 80076; 83880; 84484; 85025; 87502; 87635; 93005; 99283; 99284

== ENCOUNTER → 2023-03-20 12:00 | Outpatient (BNV) | payer MEDICARE, MEDICAID, SELFPAY | PROVIDERS: Visit Provider Internal Medicine | DX: R07.9 Chest pain, unspecified (principal) | CPT/HCPCS: 93010 ==

== ENCOUNTER 2023-06-12 09:09 | Outpatient (REF) | payer MEDICARE, MEDICAID, SELFPAY | END 2023-06-12 09:10 | disposition home or self-care (01) | LOC: HO.HAP 09:09 | PROVIDERS: Visit Provider Registered Nurse | DX: Z46.1 Encounter for fitting and adjustment of hearing aid (principal); H90.3 Sensorineural hearing loss, bilateral | CPT/HCPCS: V5266 ==

== ENCOUNTER 2023-07-13 11:02 | Outpatient (REF) | payer MEDICARE, MEDICAID, SELFPAY ==
[2023-07-13 14:22] LABS: Anion Gap 16 (12-20); Blood Urea Nitrogen 14 mg/dL (9-16); Calcium 10.6 mg/dL (8.4-10.2); Carbon Dioxide 27 mmol/L (22-29); Chloride 101 mmol/L (96-108); Estimated Glomerular Filt Rate > 60; Glucose Random 103 mg/dL (60-115); Potassium 4.3 mmol/L (3.3-5.1); Sodium 140 mmol/L (135-145)
== END 2023-07-13 11:03 | disposition home or self-care (01) ==
LOC: HO.HHCL 11:02
PROVIDERS: Visit Provider Internal Medicine
DX: I10 Essential (primary) hypertension (principal)
CPT/HCPCS: 36415; 80048

== ENCOUNTER 2023-09-12 10:19 | Outpatient (REF) | payer MEDICARE, MEDICAID, SELFPAY ==
--- NOTE | 2023-09-12 10:48 | MHC.AU.HA3 ---
Hearing Instrument Follow-Up- Binaural Date of Visit: 09/12/23 Right Ear: Make, Model, Color, Serial Number: Ama Pabon P70-UP SN: [id number] Color: Beige Sole Layer Hand Repair Warranty: 04/11/2024 Sole Layer Hand Loss and Damage Warranty: 04/11/2024 [facility] Service Plan: 02/11/2022 Battery Size: 675 Earmold/Dome/CShell/SlimTip:Microsonic M2000 Clear Canal-Lock Dispensed By: [facility] Date of Fittin02/11/2021 Left Ear: Make, Model, Color, Serial Number: Ama Pabon P70-UP SN: [id number] Color: Beige Sole Layer Hand Repair Warranty: 04/11/2024 Sole Layer Hand Loss and Damage Warranty: 04/11/2024 [facility] Service Plan: 02/11/2022 Battery Size: 675 Earmold/Dome/CShell/SlimTip: Microsonic M2000 Clear Canal-Lock Dispensed By: [facility] Date of Fittin02/11/2021 Follow-Up Summary: Left hearing aid and ear mold dropped off - tone hook snapped due to hardness of tube. Ear mold also ripped partially down canal. Able to glue to use temporarily. Cleaned both hearing aid and ear mold. Replaced tone hook and tubing. Called [employer] - Ordered new left ear mold (Invoice #: [id number]). Recommendations: Patient will be contacted when materials have arrived. Diagnosis Code(s): Primary Diagnosis: H90.3 Bilateral Sensorineural Hearing Loss Signature: Provider: Sandeep Simpson, [facility]
== END 2023-09-12 10:20 | disposition home or self-care (01) ==
LOC: HO.HAP 10:19
PROVIDERS: Visit Provider Internal Medicine
DX: Z46.1 Encounter for fitting and adjustment of hearing aid (principal); H90.3 Sensorineural hearing loss, bilateral
CPT/HCPCS: 92592; 99499; V5266

== ENCOUNTER 2023-10-11 10:04 | Outpatient (REF) | payer MEDICARE, MEDICAID, SELFPAY | END 2023-10-11 10:05 | disposition home or self-care (01) | LOC: HO.HAP 10:04 | PROVIDERS: Visit Provider Registered Nurse | DX: Z46.1 Encounter for fitting and adjustment of hearing aid (principal); H90.3 Sensorineural hearing loss, bilateral | CPT/HCPCS: V5264 ==

== ENCOUNTER 2023-12-13 10:13 | Outpatient (REF) | payer MEDICARE, MEDICAID, SELFPAY | END 2023-12-13 10:14 | disposition home or self-care (01) | LOC: HO.HAP 10:13 | PROVIDERS: Visit Provider Registered Nurse | DX: Z46.1 Encounter for fitting and adjustment of hearing aid (principal); H90.3 Sensorineural hearing loss, bilateral | CPT/HCPCS: V5266 ==

== ENCOUNTER 2024-03-14 10:18 | Outpatient (REF) | payer SELFPAY ==
--- OUTSIDE RECORDS SUMMARY | 2024-03-14 13:44 | XMS_ITS | Clinical Summary ---
Author Organization [employer] Address [address] [facility] [address] [place] [address] Care Team Providers Care Regulatory Affairs Spec Name Role Phone Myla Subramanian MD Primary Care Provide r Allergies Active Allergy Reactions Criticality Noted Date Comments Aspirin 01/13/2022 Penicillin G 07/20/2020 Other reaction(s): Hives / Skin Rash Squid Oil 04/10/2023 Medications Blood Pressure Monitor kitIndications: Essential hypertension Use as directed 3x/week 1 kit 04/10/19 24 Active Diclofenac Sodium (Voltaren) 1 % gelIndications: Lumbar back pain,Chronic right shoulder pain Apply 2 g topically 3 times daily. 100 g 11 07/13/19 24 Active atorvastatin (Lipitor) 80 MG tabletIndicatio ns:Essential hypertension Take 1 tablet (80 mg) by mouth Once per day. 30 tablet 2 10/12/19 24 Active gabapentin (Neurontin) 300 MG capsuleIndicati ons:Pain Take 1 capsule by mouth at bedtime 90 capsule 1 10/12/19 24 Active lisinopril-hydr oCHLOROthiazide 20-12.5 MG tabletIndicatio ns:Essential hypertension Take 1 tablet by mouth in the morning. 90 tablet 1 10/12/19 24 Active hydrocortisone 1 % creamIndication s:Allergic rash present on examination APPLY TO THE AFFECTED AREA(S) TOPICALLY TWICE DAILY 28 g 4 11/28/19 24 Active cetirizine (ZyrTEC) 10 MG tabletIndicatio ns:Atopic dermatitis, unspecified type Take 1 tablet (10 mg) by mouth Once per day. 30 tablet 2 01/02/20 24 025 Active Emollient (CeraVe Moisturizing) creamIndication s:Atopic dermatitis, unspecified type Apply 1 each topically Every 4-6 hours as needed (For itching). 340 g 11 01/02/20 24 Active diphenhydrAMINE (Banophen) 25 MG capsuleIndicati ons:Other atopic dermatitis Take 1 capsule (25 mg) by mouth every 8 (eight) hours if needed for itching for up to 20 days. 30 capsule 1 02/12/20 24 Active triamcinolone (Kenalog) 0.1 % creamIndication s:Other atopic dermatitis APPLY TOPICALLY TO THE AFFECTED AREA(S) OF ARMS AND TRUNK TWICE DAILY DIRECTED FOR FOURTEEN DAYS 45 g 1 03/12/19 25 Active aluminum & magnesium hydroxide-simet hicone (Myrna-Lanta) 200-200-20 MG/5ML oral suspensionIndic ations:Gastroes ophageal reflux disease, unspecified whether esophagitis present Take 5 mL by mouth every 6 (six) hours if needed for indigestion or heartburn for up to 10 days. 355 mL 1 02/12/20 24 025 triamcinolone (Kenalog) 0.1 % creamIndication s:Other atopic dermatitis Apply topically 2 times daily. Apply to affected area of arms and trunk twice daily for 2 weeks. 45 g 1 02/12/20 24 025 Discontinued Active Problems Problem Noted Date Diagnosed Date Other chest pain 02/12/2024 Assessment & Plan (02/12/2024 4:17 PM EST): Cardiology referral Other atopic dermatitis 02/12/2024 Assessment & Plan (02/12/2024 4:17 PM EST): Triamcinolone and Banophen prescribed I will refer him to allergy and mechanical engineering specialist Gastroesophageal reflux disease without esophagi tis 10/12/2023 Assessment & Plan (10/12/2023 10:33 AM EDT): I advise patient to avoid NSAIDs, spicy and acid food, I advise to eat at the same time every day, I advise to elevate the head of the bed and take medications as prescribe Colon cancer screening 10/12/2023 Abscess 07/13/2023 Assessment & Plan (07/13/2023 11:01 AM EDT): Doxyxicline + PRN acetaminophen If problem persist or worse come to [facility] possible referral to surgery Cognitive impairment 07/13/2023 Assessment & Plan (07/13/2023 11:03 AM EDT): I will call and find out why his [employer] hours where reduced Dental plaque 06/20/2023 Teeth missing 06/20/2023 Allergic rash present on examination 04/10/2023 Assessment & Plan (04/10/2023 4:47 PM EST): Banadryl + prednisone + hydrocortisone apply locally BID no more than 2 weeks Serum calcium elevated 08/31/2022 Assessment & Plan (08/31/2022 8:36 AM EDT): Component Ref Range & Units 1 mo ago (07/22/22) 5 mo ago (03/28/22) 9 mo ago (11/24/21) 1 yr ago (08/18/21) 1 yr ago (08/04/21) 1 yr ago (01/25/21) 2 yr ago (07/09/20) Glucose 65 - 139 mg/dL 99 116??High?? R, CM Comment: ?Non-fasting reference interval ?? Urea Nitrogen (BUN) 7 - 25 mg/dL 15 15 17 16 14 14 15 Creatinine 0.70 - 1.35 mg/dL 0.89 0.99 EGFR > OR = 60 mL/min/1.73m2 97 86 CM Comment: The eGFR is based on the CKD-EPI 2021 equation. To calculate the new eGFR from a previous Creatinine or Cystatin C result, go to https://www.kidney.org/professionals/ kdoqi/gfr%5Fcalculator BUN/Creatinine Ratio 6 - (calc) NOT APPLICABLE NOT APPLICABLE Sodium 135 - 146 mmol/L 135 138 Potassium 3.5 - 5.3 mmol/L 4.7 4.9 Chloride 98 - 110 mmol/L 98 100 Carbon Dioxide 20 - 32 mmol/L 28 29 Calcium 8.6 - 10.3 mg/dL 9.9 10.5??High?? Serum calcium no longer elevated. Continue to maintain proper hydration. Chronic bilateral low back pain 08/31/2022 Assessment & Plan (07/13/2023 11:03 AM EDT): Acetaminophen renewed Diclofenac gel PRN Right leg pain 07/20/2022 Assessment & Plan (08/31/2022 5:16 PM EDT): Patient is starting PT soon, we will f/up after he completes to discuss its effectiveness. F/up 2 months. Assessment & Plan (07/20/2022 4:55 PM EDT): DDx: Iliotibial band syndrome, sciatica, osteoarthritis Patient using diclofenac gel to decent affect but pain still remains. Referral to PT sent, Ordered baclofen 10 mg BID for 30 days. I explained IT band syndrome to the patient and advised RICE. Pain in right elbow 05/27/2022 Assessment & Plan (05/27/2022 9:45 AM EDT): Xrays ordered. Will contact patient if any abnormalities are identified. Routine adult health maintenance 05/26/2022 Assessment & Plan (07/20/2022 4:56 PM EDT): Titers ordered for care gaps (hep A and hep B). Care gaps report patient needs first hep A and B vaccinations. He has a colonoscopy scheduled for 09/14 at [facility]. Assessment & Plan (05/27/2022 9:43 AM EDT): Previous referrals: Audiology: 05/16/22 last appointment, doesn't remember name of audiology next appointment june 15. Gastro: waiting on appointment, [facility] PT: waiting on appointment, [facility] Optometry: Never got a call, new referral sent Essential hypertension 01/05/2022 Assessment & Plan (02/12/2024 4:15 PM EST): I advised: - Aerobic exercise to reduce BP. Initial goal of 30 min walk 3-5x/week. Increase as tolerated. - low-sodium diet (goal: <2g/day) and heart healthy diet such as DASH to reduce BP and prevent ASCVD. - Home BP monitoring 1-2 x day with goal of <140/90. - Seek immediate medical attention for chest pain, palpitations, SOB, syncope, or sudden changes in mental status. - Do not change or discontinue current prescriptions without first consulting health care provider Assessment & Plan (10/12/2023 10:33 AM EDT): Maintenance: BMP: up to date Lipid Panel: up to date ASCVD Risk: on atorvastatin 80mg daily I advise: - Aerobic exercise to reduce BP. Initial goal of 30 min walk 3-5x/week. Increase as tolerated. - low-sodium diet (goal: <2g/day) and heart healthy diet such as DASH to reduce BP and prevent ASCVD. - Home BP monitoring 1-2 x day with goal of <140/90. - Seek immediate medical attention for chest pain, palpitations, SOB, syncope, or sudden changes in mental status. - Do not change or discontinue current prescriptions without first consulting health care provider Assessment & Plan (07/13/2023 11:01 AM EDT): - Aerobic exercise to reduce BP. Initial goal of 30 min walk 3-5x/week. Increase as tolerated. - low-sodium diet (goal: <2g/day) and heart healthy diet such as DASH to reduce BP and prevent ASCVD. - Home BP monitoring 1-2 x day with goal of <140/90. - Seek immediate medical attention for chest pain, palpitations, SOB, syncope, or sudden changes in mental status. - Do not change or discontinue current prescriptions without first consulting health care provider Assessment & Plan (04/10/2023 4:46 PM EST): Maintenance: BMP: up to date Lipid Panel: up to date ASCVD Risk: high risk on atorvastatin 80mg daily - Aerobic exercise to reduce BP. Initial goal of 30 min walk 3-5x/week. Increase as tolerated. - low-sodium diet (goal: <2g/day) and heart healthy diet such as DASH to reduce BP and prevent ASCVD. - Home BP monitoring 1-2 x day with goal of <140/90. - Seek immediate medical attention for chest pain, palpitations, SOB, syncope, or sudden changes in mental status. - Do not change or discontinue current prescriptions without first consulting health care provider Assessment & Plan (07/20/2022 3:38 PM EDT): Refilled patient lisinopril Patients BP is 145/83 today, no changes in medication is advised per JNC-8 guidelines. Assessment & Plan (05/27/2022 9:13 AM EDT): BP today 121/75 well managed, no changes will be made today. Patient to continue current therapies. Hyperlipidemia 01/05/2022 Assessment & Plan (05/27/2022 9:43 AM EDT): ASCVD Risk Profile = 9.9% We discussed either he can start a new medication or I can prescribe ezetimibe. He chose to work on his diet and return in 6 months for lab work. F/up 6 month for lipid panel Gastroesophageal reflux disease 08/09/2021 Assessment & Plan (02/12/2024 4:16 PM EST): I advise patient to avoid NSAIDs, spicy and acid food, I advise to eat at the same time every day, I advise to elevate the head of the bed and take medications as prescribe Prediabetes 01/29/2021 Assessment & Plan (04/10/2023 4:47 PM EST): Today extensive discussion was done about life style modifications I advise healthy diet (low calorie) and cardiovascular exercise Assessment & Plan (08/31/2022 10:00 AM EDT): A1C = 6.1 Assessment & Plan (07/20/2022 3:36 PM EDT): Component Ref Range & Units 1 mo ago 3 mo ago 7 mo ago 1 yr ago 2 yr ago Hemoglobin A1C 4.0 - 6.0 % 6.2??Abnormal?? 6.2??Abnormal?? 5.7??High?? R, CM 5.9??High?? R, CM 5.8??High?? R, Patient maintains prediabetic status. Diet and exercise advised. Assessment & Plan (05/27/2022 9:44 AM EDT): Glucose 127 A1C 6.2 We discussed dietary changes including watching carbs, exercise 30 min/ day, most days. ED precautions discussed. F/up 6 months A1C Sensorineural hearing loss, bilateral 11/18/2020 Encounters Date Type Department Care Team Description 03/12/2024 Refill [facility] [address] [place] [phone] Myla Subramanian MD Other atopic dermatitis 02/12/2024 10:45 AM EST Office Visit [facility] [address] [place] [phone] Myla Subramanian MD Essential hypertension (Primary Dx); Other chest pain; Gastroesophageal reflux disease, unspecified whether esophagitis present; Other atopic dermatitis; Encounter for immunization 02/12/2024 Telephone [facility] [address] [place] [phone] Myla Subramanian MD 02/12/2024 Travel 02/09/2024 Telephone [facility] [address] [place] [phone] Lakisha Godoy MA Chart Prep 01/02/2024 8:40 AM EST Office Visit [facility] [address] [place] [phone] Suzanne Ma MD Atopic dermatitis, unspecified type (Primary Dx) from Last 3 Months Immunizations Name Administration Dates Next Due Influenza Injectable Quadriv alant Preservative Free IIV4 MDCK 11/05/2021 Influenza injectable quadriv alent preservative free 04/10/2023,01/25/2021,11/08/2019 Influenza, seasonal, injecta ble, preservative free 02/12/2024 Moderna Covid-19 Vaccine 12+ 01/28/2021,07/18/19 21,06/19/2020 Moderna Covid-19 Vaccine 6+ Bivalent 03/03/2022 RSV Bivalent 04/14/2023 Tdap 11/05/2021 Zoster, Recombinant 11/05/2021,08/05/2021 Social History Tobacco Use Types Packs/Day Years Used Date Smoking Tobacco: Never Passive Smoke Exposure: Never Smokeless Tobacco: Never Tobacco Cessation:Counseling Given: Not Answered Alcohol Use Standard Drinks/Week Comments Never 0 (1 standard drink = 0.6 oz pur e alcohol) Depression Answer Date Recorded Patient Health Questionnaire-9 Score 8 07/13/2023 Patient Health Questionnaire-9 Score 8 07/13/2023 Last PHQ-9: Questionnaire Data Not on file 0 07/13/2023 Housing Stability Answer Date Recorded What is your housing situation today? I have trace madden 12/03/[address] you li ve. Do you have problems with any of the following? None of the above 12/03/2022 Food Insecurity Answer Date Recorded Within the past 12 months, y ou worried that your food would run out before you got money to buy more: Never True 12/03/2022 Within the past 12 months,th e food you bought just didn't last and you didn't have enough money to get more: Never True Transportation Answer Date Recorded In the past 12 months, has l ack of transportation kept you from medical appts, meetings, work or from getting things needed for daily living? No 12/03/2022 Utilities Answer Date Recorded In the past 12 months, has t he electric, gas, oil or water company threatened to shut off services in your home? No 12/03/2022 Depression Answer Date Recorded Patient Health Questionnaire-2 Score 2 07/13/2023 Sex and Gender Information Value Date Recorded Sex Assigned at Male 12/13/2021 10:17 AM EDT Legal Sex Male 10:17 AM EDT Gender Identity Male 12/13/2021 10:17 AM EDT Sexual Orientation Don't know 12/13/2021 10 :17 AM EDT Last Filed Vital Signs Vital Sign Reading Time Taken Comments Blood Pressure 130/66 02/12/2024 10:27 AM EST Pulse 96 02/12/2024 10:27 AM EST Temperature 37.7 ??C (99.8 ??F) 02/12/2024 10:[address] Respiratory Rate 20 02/12/2024 10:27 AM EST Oxygen Saturation 95% 01/02/2024 8:39 AM EST Inhaled Oxygen Concentration - - Weight 55.2 kg (121 lb 9.6 oz) 02/12/2024 10:27 AM EST Height 167.6 cm (5' 6 ) 02/12/2024 10:27 AM EST Body Mass Index 19.63 02/12/2024 10:27 AM EST Plan of Treatment Upcoming Encounters Date Type Department Care Team (Late st Contact Info) Description 04/30/2024 9:15 AM EDT Office Visit [facility] [address] [place], [place] [phone] Ralph Black MD [address] [place], [place] [phone] 05/13/2024 10:00 AM EDT Office Visit [facility] [address] [place] [phone] Myla Subramanian MD [address] [place], [place] [phone] Health Maintenance Due Date Last Done Comments Anal Pap 1960 CT Colonography 1960 Colonoscopy 1960 FIT 1960 FOBT 1960 Sigmoidoscopy 1960 Hepatitis A Vaccines (1 of 2 - Risk 2-dose series) 02/04/1979 Hepatitis B Vaccines (1 of 3 - Risk 3-dose series) 2020 COVID-19 Vaccine ( season) 2023 03/03/2022, 01/28/2021, 07/17/2020, Additional history exists Dental X-Ray: Full Mouth 12/05/2023 12/03/2020 Dental Prophylaxis 12/22/2023 06/20/2023, 09/01/2022 Dental Oral Exam 01/14/2024 07/14/2023, 02/23/2022 SDOH Screening 03/29/2024 03/29/2023 Diabetes: Hemoglobin A1C 04/10/20242 024, 08/31/2022, 05/27/2022, Additional history exists Dental X-Ray: Bitewings 06/20/2024 06/20/2023, 02/23 Depression Screening 07/12/2024 07/13/2023, 07/13/19 Alcohol/Substance Use Screening 02/11/2025 02/12/2024 Tobacco Screening 02/11/2025 02/12/2024 Colorectal Cancer Screening 10/22/2026 FIT DNA/Cologuard 10/22/2026 10/23/2023 Lipid Panel 03/28/2027 03/28/2022, 11/13, 01/25/2021, Additional history exists DTaP/Tdap/Td Vaccines (2 - Td or Tdap) 11/06/2031 11/05/2021 HIV Screening Completed 08/04/2021 Zoster Vaccines Completed 11/05/2021, 08/05/2021 Hepatitis C Screening Completed 07/22/2022, 022 RSV Patients and Patients Aged 60 years or older Completed 04/14/2023 Influenza Vaccine Completed 02/12/2024, , 11/05/2021, Additional history exists HIB Vaccines Aged Out No longer eligi ble based on patient's age to complete this topic HPV Vaccines Aged Out No longer eligi ble based on patient's age to complete this topic IPV Vaccines Aged Out No longer eligi ble based on patient's age to complete this topic Meningococcal Vaccine Aged Out No terri gabriel eligible based on patient's age to complete this topic Pneumococcal Vaccine: Pediatrics (0 to 5 Years) and At-Risk Patients (6 to 49) Years) Aged Out No longer eligible based on patient's age to complete this topic RSV under 20 months Aged Out No longe r eligible based on patient's age to complete this topic Rotavirus Vaccines Aged Out No longer eligible based on patient's age to complete this topic Procedures Procedure Name Priority Date/Time Associated Diagnosis Comments LAB COLOGUARD?? COLON CANCER SCREEN Routine 10/23/2023 7:07 AM EDT Colon cancer screening PERIODIC ORAL EVALUATION - ESTABLISHED PATIENT Routine 07/14/2023 9:30 AM EDT Encounter for dental examination Teeth missing PROPHYLAXIS - ADULT Routine 06/20/2023 1 :00 PM EDT Dental plaque BITEWINGS - 4 RADIOGRAPHIC IMAGES Routine 06/20/2023 1:00 PM EDT Dental plaque Teeth missing POCT GLYCATED HEMOGLOBIN, TOTAL Routine 04/10/2023 3:11 PM EST Prediabetes HEPATITIS C AB W/REFL TO HCV RNA, QN, PCR Routine 07/22/2022 9:31 AM EDT Routine adult health maintenance LIPID PANEL, STANDARD Routine 03/28/2022 8:03 AM EST Routine health maintenance HIV 1/2 ANTIGEN/ANTIBODY, FOURTH GENERATION W/RFL Routine 08/04/2021 10:05 AM EDT from Last 3 Months or Most Recently Relevant to Health Maintenance Results * Cologuard?? colon cancer screening (10/23/2023 7:07 AM EDT) Pathologist [facility] Cologuard Result Negative Negative 10/26/19 10:15 PM EDT [facility] (CLIA #:[id number]) Comment: NEGATIVE TEST RESULT. A negative Cologuard result indicates a low likelihood that a colorectal cancer (CRC) or advanced adenoma (adenomatous polyps with more advanced pre-malignant features) ??is present. The chance that a person with a negative Cologuard test has a colorectal cancer is less than 1 in 1500 (negative predictive value >99.9%) or has an ??advanced adenoma is less than ??5.3% (negative predictive value 94.7%). These data are based on a prospective cross-sectional study of 10,000 individuals at average risk for colorectal cancer who were screened with both Cologuard and colonoscopy. (Nelia Huang al, N Engl J Med 2014;370(14):1286- 1297) The normal value (reference range) for this assay is negative. COLOGUARD RE-SCREENING RECOMMENDATION: Periodic colorectal cancer screening is an important part of preventive healthcare for asymptomatic individuals at average risk for colorectal cancer. ??Following a negative Cologuard result, the [place] [employer] and U.S. Multi-Society Task Force screening guidelines recommend a Cologuard re-screening interval of 3 years. References: [place] [employer] Guideline for Colorectal Cancer Screening: https://www.cancer.org/cancer/brzry-ycwvab-eezpts/afiyhcgmq-qlqyyhpxq-hpajirj/ac s-rec ommendations.html.; José DK, Bryce CR, Ashley BhaktaK, Colorectal Cancer Screening: Recommendations for Physicians and Patients from the U.S. Multi-Society Task Force on Colorectal Cancer Screening , Am J Gastroenterology 2017; 112:0190-1701. TEST DESCRIPTION: Composite algorithmic analysis of stool DNA-biomarkers with hemoglobin immunoassay. ?? Quantitative values of individual biomarkers are not reportable and are not associated with individual biomarker result reference ranges. Cologuard is intended for colorectal cancer screening of adults of either sex, 45 years or older, who are at average-risk for colorectal cancer (CRC). Cologuard has been approved for use by the U.S. FDA. The performance of Cologuard was established in a cross sectional study of average-risk adults aged 50-84. Cologuard performance in patients ages 45 to 49 years was estimated by sub-group analysis of near-age groups. Colonoscopies performed for a positive result may find as the most clinically significant lesion: colorectal cancer [4.0%], advanced adenoma (including sessile serrated polyps greater than or equal to 1cm diameter) [20%] or non- advanced adenoma [31%]; or no colorectal neoplasia [45%]. These estimates are derived from a prospective cross-sectional screening study of 10,000 individuals at average risk for colorectal cancer who were screened with both Cologuard and colonoscopy. (Nelia Huang al, N Engl J Med 2014;370(14):2938-8354.) Cologuard may produce a false negative or false positive result (no colorectal cancer or precancerous polyp present at colonoscopy follow up). A negative Cologuard test result does not guarantee the absence of CRC or advanced adenoma (pre-cancer). The current Cologuard screening interval is every 3 years. ([place] [employer] and U.S. Multi-Society Task Force). Cologuard performance data in a 10,000 patient pivotal study using colonoscopy as the reference method can be accessed at the following location: www.Hycrete.PocketSuite/results. Additional description of the Cologuard test process, warnings and precautions can be found at www.YaBeamrd.com. Stool specimen (specimen) 10/23/2023 7:07 AM EDT 10/24/2023 2:06 PM EDT Myla Sena MD LAB MOLECULAR DIAGNOS TICS ORDERABLES Final Result [facility] (CLIA #:[id number]) [place] [address], [place] [phone] * (ABNORMAL) POCT HGB A1C (04/10/2023 3:11 PM EST) Hemoglobin A1C 6.3(A) 4.0 - 6.0 % QC Media Lot # [id number] Lot# Expiration Date Blood 04/10/2023 3:11 PM EST Myla Sena MD POINT OF CARE TEST EN TER/EDIT ORDERABLES Final Result * Hepatitis C Antibody with Reflex to HCV, RNA, Quantitative, Real-Time PCR (07/22/2022 9:31 AM EDT) Hepatitis C Antibody NON-REACT DEONDRE NON-REACT DEONDRE [facility] Index 0.07 <1.00 [facility] Comment: HCV antibody was non-reactive. There is no laboratory evidence of HCV infection. In most cases, no further action is required. However, if recent HCV exposure is suspected, a test for HCV RNA (test code 71087) is suggested. For additional information please refer to http://education.[employer]/faq/SFK91z7 (This link is being provided for informational/ educational purposes only.) Blood Venous blood specimen / Unknown 07/22/2022 9:31 AM EDT 07/22/2022 9:31 AM EDT Narrative [facility] - 07/23/2022 12:54 AM EDT FASTING:NO FASTING: NO us Alfonso MENDOZA LAB BLOOD ORDERABLES Final Res ult [facility] [address], [place] [address] [facility] [address] [place] [address] * (ABNORMAL) Lipid Panel, Standard (03/28/2022 8:03 AM EST) Cholesterol, Total 214(H) <200 mg/dL [facility] [employer] HDL Cholesterol 77 > OR = 40 mg/dL [facility] Triglycerides 75 <150 mg/dL [facility] LDL Cholesterol 120(H) mg/dL (calc) [facility] Comment: Reference range: <100 Desirable range <100 mg/dL for primary prevention; ?? <70 mg/dL for patients with CHD or diabetic patients with > or = 2 CHD risk factors. LDL-C is now calculated using the Shayla calculation, which is a validated novel method providing better accuracy than the Friedewald equation in the estimation of LDL-C. Aramis SS et al. KAYLI. 2013;310(19): 8388-1977 (http://education.[employer]/faq/EJT711) Chol/HDLC Ratio 2.8 <5.0 (calc) [facility] Non-HDL Cholesterol 137(H) <130 mg/dL (calc) [facility] Comment: For patients with diabetes plus 1 major ASCVD risk factor, treating to a non-HDL-C goal of <100 mg/dL (LDL-C of <70 mg/dL) is considered a therapeutic option. Blood Venous blood specimen / Unknown 03/28/2022 8:03 AM EST 03/28/2022 8:03 AM EST Narrative [facility] - 03/28/2022 8:16 PM EST FASTING:YES FASTING: YES us Alfonso MENDOZA LAB BLOOD ORDERABLES Final Res ult [facility] [address], [place] [address] [facility] [employer] [address] [facility], ([address]) [place] [address] * HIV 1/2 ANTIGEN/ANTIBODY,FOURTH GENERATION W/RFL (08/04/2021 10:05 AM EDT) HIV-1/2 ANTIGEN AND ANTIBODIES, 4TH GENERATION W/ REFLEX NON-REACT DEONDRE NON-REACT DEONDRE [facility] Comment: HIV-1 antigen and HIV-1/HIV-2 antibodies were not detected. There is no laboratory evidence of HIV infection. ?? PLEASE NOTE: This information has been disclosed to you from records whose confidentiality may be protected by state law. ??If your state requires such protection, then the state law prohibits you from making any further disclosure of the information without the specific written consent of the person to whom it pertains, or as otherwise permitted by law. A general authorization for the release of medical or other information is NOT sufficient for this purpose. ? For additional information please refer to [email or web address]/faq/ZGK460 (This link is being provided for informational/ educational purposes only.) ? The performance of this assay has not been clinically validated in patients less than 2 years old. ?? 08/04/2021 10:0 5 AM EDT us Tresa Paz NP LAB BLOOD ORDERABLES Final Resu lt [facility] [address] from Last 3 Months or Most Recently Relevant to Health Maintenance Insurance [address] [place] [id number] [facility] STANDARD MEDICARE [place] STAND ADULT Care Teams Regulatory Affairs Spec Relationship Specialty Start Date End Date Myla Subramanian MD [address] [place] [id number] PCP - General Internal Medicine 02/10/23
--- OUTSIDE RECORDS SUMMARY | 2024-03-14 13:44 | XMS_ITS | Encounter Summary ---
Author Organization [employer] Address 75 [facility] [address] 7t [place] [address] Care Team Providers Care Dog Track Kennel Manager Name Role Phone Myla Subramanian MD Primary Care Provide r Reason for Visit * Reason Comments Med Refill Encounter Details Date Type Department Care Team ([facility] Contact Info) Description 09/01/2023 Refill [facility] MEDICINE [address] [place] [address] Myla Subramanian MD [address] [place], [place] [phone] Abscess Social History Tobacco Use Types Packs/Day Years Used Date Smoking Tobacco: Never Smokeless Tobacco: Never Alcohol Use Standard Drinks/Week Comments Never 0 [...] Don't know 12/13/2021 10 :17 AM EDT documented as of this encounter Plan of Treatment Upcoming Encounters Date Type Department Care Team (Late st Contact Info) Description 04/30/2024 9:15 AM EDT Office Visit [facility] MED & PEDS [address] [place] [address] Ralph Black MD 505 [place] [address] 05/13/2024 10:00 AM EDT Office Visit [facility] MEDICINE [address] [place] [address] Myla Subramanian MD [address] [place] [phone] documented as of this encounter Visit Diagnoses Diagnosis Abscess Cellulitis and abscess of unspecified site documented in this encounter Additional Health Concerns Assessment Noted Time PHQ-9 Depression Total Score: 8 07/13/19 24 10:06 AM EDT documented as of this encounter Care Teams Dog Track Kennel Manager Relationship Specialty Start Date End Date Myla Subramanian MD [address] [place] [address] [phone] PCP - General Internal Medicine 02/10/23 documented as of this encounter
--- OUTSIDE RECORDS SUMMARY | 2024-03-14 13:44 | XMS_ITS | Encounter Summary ---
Author Organization [employer] Address [address] [facility] [address] 7t [place] [address] Care Team Providers Care Piece Goods Packer Name Role Phone Myla Subramanian MD Primary Care Provide r Reason for Visit * Reason Comments Med Refill Encounter Details Date Type Department Care Team ([facility] st Contact Info) Description 07/13/2023 Refill [facility] MEDICINE [address] [place] [address] Sarah Sargent FNP [address] [place] [address] Essential hypertension Social History Tobacco Use Types Packs/Day Years [...] Description 04/30/2024 9:15 AM EDT Office Visit [facility] CHC MED & PEDS 505 [place] [address] Ralph Black MD 505 [place], [place] [phone] 05/13/2024 10:00 AM EDT Office Visit [facility] MEDICINE [address] [place] [address] Myla Subramanian MD [address] [place] [address] documented as of this encounter Visit Diagnoses Diagnosis Essential hypertension Unspecified essential hypertension documented in this encounter Additional Health Concerns Assessment Noted Time PHQ-9 Depression Total Score: 8 07/13/19 24 10:06 AM EDT documented as of this encounter Care Teams Piece Goods Packer Relationship Specialty Start Date End Date Myla Subramanian MD [address] [place] [address] [phone] PCP - General Internal Medicine 02/10/23 documented as of this encounter
--- OUTSIDE RECORDS SUMMARY | 2024-03-14 13:45 | XMS_ITS | Encounter Summary ---
Author Organization [employer] Address 75 [facility] 7t [place] [address] Care Team Providers Care Horse Groomer Name Role Phone Alfonso Cuello AGNLogan Primary Care Provider Unavail Sarah Suárez Primary Care Provider [phone] Myla Subramanian MD Primary Care Provide r Encounter Details Date Type Department Care Team (Late st Contact Info) Description 01/05/2022 Abstract [facility] ADULT DENTAL [address] [place] [address] Dental, Provider, DDS Social History Tobacco Use Types Packs/Day Years Used Date Smoking Tobacco: Never Assessed Sex and Gender Information Value Date Recorded Sex Assigned at Male 12/13/2021 10:17 AM EDT Legal Sex Male 10:17 AM EDT Gender Identity Male 12/13/2021 10:17 AM EDT Sexual Orientation Don't know 12/13/2021 10 :17 AM EDT documented as of this encounter Plan of Treatment Upcoming Encounters Date Type Department Care Team (Late Contact Info) Description 04/30/2024 9:15 AM EDT Office Visit [facility] CH[facility] MED & PEDS 505 [place] [address] Ralph Black MD 505 [place] [address] 05/13/2024 10:00 AM EDT Office Visit [facility] MEDICINE [address] [place] [address] Myla Subramanian MD [address] [place] [address] documented as of this encounter Procedures Procedure Name Priority Date/Time Associated Diagnosis Comments 18 O AMALGAM FILLING Routine 01/05/2022 12:00 AM EST 14 MO AMALGAM FILLING Routine 01/05/2022 12:00 AM EST 13 DO AMALGAM FILLING Routine 01/05/2022 12:00 AM EST 2 O AMALGAM FILLING Routine 01/05/2022 12:00 AM EST 8 ROOT CANAL Routine 01/05/2022 12:00 AM EST 7 ROOT CANAL Routine 01/05/2022 12:00 AM EST documented in this encounter Visit Diagnoses Not on filedocumented in this encounter Care Teams Horse Groomer Relationship Specialty Start Date End Date Alfonso Cuello AGNP PCP - General Family Medicine 11/16/21 10/27/22 Sarah Sargent FNP [address] [place] [address] PCP - General Family Medicine 10/28/22 02/09/23 Myla Subramanian MD [address] [place] [address] PCP - General Internal Medicine 02/10/23 documented as of this encounter
--- OUTSIDE RECORDS SUMMARY | 2024-03-14 13:45 | XMS_ITS | Encounter Summary ---
Author Organization [employer] [facility] Address 75 [facility] 7t [place] [address] Care Team Providers Care Supervisor Silvering Department Name Role Phone Myla Subramanian MD Primary Care Provide r Reason for Visit * Reason Onset Date Comments increase in SLUBBER TENDER hours 04/18/2023 Spoke with Uma at [facility] to discuss Patient request for a letter from Provider to increase his SLUBBER TENDER hours. Presently he has 9 hours per week. Uma stated that under [facility] program the maximum hours is 9 per week. If patient feels he needs more there needs to be a reason for the increase, patient saw PCP in March and did not mention that he needs more SLUBBER TENDER hours. Uma will contact patient to see if there is a need and if yes he could [facility] SLUBBER TEND[facility] program. Encounter Details Date Type Department Care Team ([facility] st Contact Info) Description 04/18/2023 Telephone [facility] MEDICINE 230 [place], [place] [phone] Myla Subramanian MD 230 [place], [place] [phone] increase in SLUBBER TENDER hours (Spoke with Uma at [facility] to discuss Patient request for a letter from Provider to increase his SLUBBER TENDER hours. Presently he has 9 hours per week. Uma stated that under [facility] program the maximum hours is 9 per week. If patient feels he needs more there needs to be a reason for the increase, patient saw PCP in March and did not mention that he needs more SLUBBER TENDER hours. Uma will contact patient to see if there is a need and if yes he could possibly be [facility] SLUBBER TENDER program. ) Social History Tobacco Use Types Packs/Day Years Used Date Smoking Tobacco: Never Smokeless Tobacco: Never Alcohol Use Standard Drinks/Week Comments Never 0 (1 standard drink = 0.6 oz pur e alcohol) Depression Answer Date Recorded Patient Health Questionnaire-9 Score 6 05/27/2022 Housing Stability Answer Date Recorded What is [...] Date Recorded Patient Health Questionnaire-2 Score 2 05/27/2022 Sex and Gender Information Value Date Recorded [...] 04/30/2024 9:15 AM EDT Office Visit [facility] CHC MED & PEDS [address] [place] [address] Ralph Black MD 505 [place] [address] 05/13/2024 10:00 AM EDT Office Visit [facility] MEDICINE 230 [place] [address] Myla Subramanian MD [address] [place], [place] [phone] documented as of this encounter Visit Diagnoses Not on filedocumented in this encounter Additional Health Concerns Assessment Noted Time PHQ-9 Depression Total Score: 6 05/28/19 23 9:06 AM EDT documented as of this encounter Care Teams Supervisor Silvering Department Relationship Specialty Start Date End Date Myla Subramanian MD [address] [place] [address] PCP - General Internal Medicine 02/10/23 documented as of this encounter
--- OUTSIDE RECORDS SUMMARY | 2024-03-14 13:45 | XMS_ITS | Encounter Summary ---
Author Organization [employer] Address 75 [facility] 7t [place] [address] Care Team Providers Care Legal Summer Intern Name Role Phone Alfonso Cuello Primary Care Provider Unavail Sarah Suárez Primary Care Provider [phone] Myla Subramanian MD Primary Care Provide r Encounter Details Date Type Department Care Team (Late st Contact Info) Description 09/13/2022 Telephone [facility] MEDICINE [address] [place] [address] Alfonso Cuello AGNP Social History Tobacco Use Types Packs/Day Years Used Date Smoking Tobacco: Never Smokeless Tobacco: Never Alcohol Use Standard Drinks/Week Comments Never 0 (1 standard drink = 0.6 oz pur e alcohol) Depression Answer Date Recorded Patient Health Questionnaire-9 Score 6 05/27/2022 Depression Answer Date Recorded Patient Health Questionnaire-2 Score 2 05/27/2022 Sex and Gender Information Value Date Recorded Sex Assigned at Male 12/13/2021 10:17 AM EDT Legal Sex Male 10:17 AM EDT Gender Identity Male 12/13/2021 10:17 AM EDT Sexual Orientation Don't know 12/13/2021 10 :17 AM EDT documented as of this encounter Miscellaneous Notes * Telephone Encounter - Ava Loredo RN - 09/16/2022 9:05 AM EDT This note forwarded to me from Emerita Diego RN- Will forward to [facility] VNA nurse to fu as I am currently working other areas at [facility]. Tc from [facility] requesting status on physician summary form. [facility] needs to be signed by PCP for pt services to be covered. Please contact [facility] at [phone] * Telephone Encounter - Mayra Amos - 09/13/2022 12:39 PM EDT Tc from [facility] requesting status on physician summary form. Pt is currently on hold for [facility] andform needs to be signed by PCP for pt services to be covered. Please contact [facility] at [phone] documented in this encounter Plan of Treatment Upcoming Encounters Date Type Department Care Team (Late st Contact Info) Description 04/30/2024 9:15 AM EDT Office Visit [facility] CHC MED & PEDS [address] [place], [place] [phone] Ralph Black MD [address] [place], [place] [phone] 05/13/2024 10:00 AM EDT Office Visit [facility] MEDICINE [address] [place] [address] Myla Subramanian MD [address] [place] [phone] documented as of this encounter Visit Diagnoses Not on filedocumented in this encounter Additional Health Concerns Assessment Noted Time PHQ-9 Depression Total Score: 6 05/28/19 23 9:06 AM EDT documented as of this encounter Care Teams Legal Summer Intern Relationship Specialty Start Date End Date Alfonso Cuello AGNP PCP - General Family Medicine 11/16/21 10/27/22 Sarah Sargent FNP [address] [place] [phone] PCP - General Family Medicine 10/28/22 02/09/23 Myla Subramanian MD [address] [place] [address] [phone] PCP - General Internal Medicine 02/10/23 documented as of this encounter
--- OUTSIDE RECORDS SUMMARY | 2024-03-14 13:45 | XMS_ITS | Encounter Summary ---
Author Organization [employer] Address [address] [facility] [address] 7t [place] [address] Care Team Providers Care Bureau Director Name Role Phone Alfonso Cuello AGNLogan Primary Care Provider Unavail Sarah Suárez Primary Care Provider [phone] Myla Subramanian MD Primary Care Provide r Encounter Details Date Type Department [facility] Team ([facility] Contact Info) Description 04/15/2022 Abstract [facility] AD[facility] D[facility]AL [address] [place] [address] Rowena Villatoro DDS [address] [place] [address] Social History Tobacco Use Types Packs/Day Years Used Date Smoking Tobacco: Never Smokeless Tobacco: Never Alcohol Use Standard Drinks/Week Comments Never 0 (1 standard drink = 0.6 oz pur e alcohol) Sex and Gender Information Value Date Recorded Sex Assigned at Male 12/13/2021 10:17 AM EDT Legal Sex Male 10:17 AM EDT Gender Identity Male 12/13/2021 10:17 AM EDT Sexual Orientation Don't know 12/13/2021 10 :17 AM EDT COVID-19 Exposure Response Date Recorded In the last 10 days, have yo u been in contact with someone who was confirmed or suspected to have Coronavirus/COVID-19? No / Unsure 04/11/2022 7:55 AM EST documented as of this encounter Plan of Treatment Upcoming Encounters Date Type Department Care Team ([facility] Contact Info) Description 04/30/2024 9:15 AM EDT Office Visit [facility] CH[facility] MED & PEDS [address] [place], [place] [phone] Ralph Black MD [address] [place] [address] 05/13/2024 10:00 AM EDT Office Visit [facility] MEDICINE [address] [place] [address] Myla Subramanian MD [address] [place] [address] [phone] documented as of this encounter Visit Diagnoses Not on filedocumented in this encounter Care Teams Bureau Director Relationship Specialty Start Date End Date Alfonso Cuello AGNP PCP - General Family Medicine 11/16/21 10/27/22 Sarah Sargent FNP [address] [place] [address] PCP - General Family Medicine 10/28/22 02/09/23 yMla Subramanian MD [address] [place] [phone] PCP - General Internal Medicine 02/10/23 documented as of this encounter
--- OUTSIDE RECORDS SUMMARY | 2024-03-14 13:45 | XMS_ITS | Encounter Summary ---
Author Organization [employer] Address [address] [facility] [address] 7t [place] [address] Care Team Providers Care General Manager [employer] Name Role Phone Myla Subramanian MD Primary Care Provide r Reason for Visit * Reason Comments Med Refill Encounter Details Date Type Department Care Team ([facility] st Contact Info) Description 03/12/2024 Refill [facility] MEDICINE [address] [place] [address] Myla Subramanian MD 230 [place], [place] [phone] Other atopic dermatitis Social History Tobacco Use Types Packs/Day Years Used Date Smoking Tobacco: Never Passive Smoke Exposure: Never Smokeless Tobacco: Never Alcohol Use Standard [...] Description 04/30/2024 9:15 AM EDT Office Visit [facility] CHC MED & PEDS [address] [place] [address] Ralph Black MD 505 [place] [address] 05/13/2024 10:00 AM EDT Office Visit [facility] MEDICINE [address] [place] [address] Myla Subramanian MD [address] [place] [phone] documented as of this encounter Visit Diagnoses Diagnosis Other atopic dermatitis documented in this encounter Additional Health Concerns Assessment Noted Time PHQ-9 Depression Total Score: 8 07/13/19 24 10:06 AM EDT documented as of this encounter Care Teams General Manager [employer] Relationship Specialty Start Date End Date Myla Subramanian MD [address] [place] [address] [phone] PCP - General Internal Medicine 02/10/23 documented as of this encounter
--- NOTE | 2024-03-15 12:15 | MHC.AU.HA3 ---
Hearing Instrument Follow-Up- Binaural Date of Visit: 03/15/24 Right Ear: Make, Model, Color, Serial Number: Ama Pabon P70-UP SN: [id number] Color: Beige Marble Machine Tender Repair Warranty: 04/11/2024 Marble Machine Tender Loss and Damage Warranty: 04/11/2024 [facility] Service Plan: 02/11/2022 Battery Size: 675 Earmold/Dome/CShell/SlimTip:Microsonic M2000 Clear Canal-Lock Dispensed By: [facility] Date of Fittin02/11/2021 Left Ear: Make, Model, Color, Serial Number: Ama Pabon P70-UP SN: [id number] Color: Beige Marble Machine Tender Repair Warranty: 04/11/2024 Marble Machine Tender Loss and Damage Warranty: 04/11/2024 [facility] Service Plan: 02/11/2022 Battery Size: 675 Earmold/Dome/CShell/SlimTip: Microsonic M2000 Clear Canal-Lock Dispensed By: [facility] Date of Fittin02/11/2021 Follow-Up Summary: Right aid dropped off with complaint of mold coming off. Cleaned aid, cleaned earmold, re-tubed. Listening check positive. Recommendations: Recommendations: Hearing instrument follow-up or maintenance as needed. Diagnosis Code(s): Primary Diagnosis: H90.3 Bilateral Sensorineural Hearing Loss Signature: Provider: Sandeep Cook, CCC-A
== END 2024-03-14 10:19 | disposition home or self-care (01) ==
LOC: HO.HAP 10:18
PROVIDERS: Visit Provider Family Medicine
DX: Z13.89 Encounter for screening for other disorder (principal)

== ENCOUNTER 2024-03-18 10:26 | Outpatient (REF) | payer SELFPAY ==
--- NOTE | 2024-03-18 11:31 | MHC.AU.HA3 ---
Hearing Instrument Follow-Up- Binaural Date of Visit: 03/18/24 Right Ear: Make, Model, Color, Serial Number: Aam Pabon P70-UP SN: [id number] Color: Beige Drafter Refrigeration Repair Warranty: 04/11/2024 Drafter Refrigeration Loss and Damage Warranty: 04/11/2024 [facility] Service Plan: 02/11/2022 Battery Size: 675 Beam Press Operator/Slim Tube: Earmold/Dome/CShell/SlimTip:Microsonic M2000 Clear Canal-Lock Type of Wax Guard: Dispensed By: [facility] Date of Fittin02/11/2021 Left Ear: Make, Model, Color, Serial Number: Ama Pabon P70-UP SN: [id number] Color: Beige Drafter Refrigeration Repair Warranty: 04/11/2024 [employer]fter Refrigeration Loss and Damage Warranty: 04/11/2024 [facility] Service Plan: 02/11/2022 Battery Size: 675 Beam Press Operator/Slim Tube: Earmold/Dome/CShell/SlimTip: Microsonic M2000 Clear Canal-Lock Type of Wax Guard: Dispensed By: [facility] Date of Fittin02/11/2021 Follow-Up Summary: [facility] d/o in need of tubing change. Retubed, cleaned aid and mold, listening check ok. Chunk of earmold appears to be missing at tip but not causing issue. Brought to front to call pt to pickup, bill to . Recommendations: Recommendations: Patient will call if problems persist. Diagnosis Code(s): Primary Diagnosis: H90.3 Bilateral Sensorineural Hearing Loss Signature: Provider: Merry Davis, [facility]
== END 2024-03-18 10:27 | disposition home or self-care (01) ==
LOC: HO.HAP 10:26
PROVIDERS: Visit Provider Family Medicine
DX: Z13.89 Encounter for screening for other disorder (principal)

== ENCOUNTER 2024-05-14 08:09 | Outpatient (REF) | payer MEDICARE, MEDICAID, SELFPAY ==
--- OUTSIDE RECORDS SUMMARY | 2024-05-14 08:25 | XMS_ITS | Clinical Summary ---
Author Organization [employer] Address [address] [facility] 7t [place] [address] Care Team Providers Care Sr. Manager Marketing Name Role Phone Myla Subramanian MD Primary Care Provide r Allergies Active Allergy Reactions Criticality Noted Date Comments Aspirin 01/13/2022 Penicillin G 07/20/2020 Other reaction(s): Hives / Skin Rash Squid Oil 04/10/2023 Medications Blood Pressure Monitor kitIndications: Essential hypertension Use as directed 3x/week 1 kit 04/10/19 24 Active atorvastatin (Lipitor) 80 MG tabletIndicatio ns:Essential hypertension Take 1 tablet (80 mg) by mouth Once per day. 30 tablet 2 10/12/19 24 Active gabapentin (Neurontin) 300 MG capsuleIndicati ons:Pain Take 1 capsule by mouth at bedtime 90 capsule 1 10/12/19 24 Active hydrocortisone 1 % creamIndication s:Allergic rash present on examination APPLY TO THE AFFECTED AREA(S) TOPICALLY TWICE DAILY 28 g 4 11/28/19 24 Active Emollient (CeraVe Moisturizing) creamIndication s:Atopic dermatitis, unspecified type Apply 1 each topically Every 4-6 hours as needed (For itching). 340 g 11 01/02/20 24 Active diphenhydrAMINE (Banophen) 25 MG capsuleIndicati ons:Other atopic dermatitis Take 1 capsule (25 mg) by mouth every 8 (eight) hours if needed for itching for up to 20 days. 30 capsule 1 02/12/20 24 Active cetirizine (ZyrTEC) 10 MG tabletIndicatio ns:Atopic dermatitis, unspecified type TAKE 1 TABLET BY MOUTH EVERY DAY 90 tablet 1 02/10/20 25 Active lisinopril-hydr oCHLOROthiazide 20-12.5 MG tabletIndicatio ns:Essential hypertension TAKE 1 TABLET BY MOUTH EVERY DAY IN THE MORNING 90 tablet 1 04/08/19 25 Active triamcinolone (Kenalog) 0.1 % creamIndication s:Other atopic dermatitis APPLY TOPICALLY TO AFFECTED AREA(S) OF ARMS AND TRUNK TWICE DAILY DIRECTED FOR FOURTEEN DAYS 45 g 1 04/24/19 25 Active triamcinolone (Kenalog) 0.1 % creamIndication s:Chronic eczema Apply topically if needed in the morning and at bedtime (pain and swelling). 80 g 3 05/01/19 25 Active Diclofenac Sodium (Voltaren) 1 % gelIndications: Lumbar back pain,Chronic right shoulder pain Apply 2 g topically 3 times daily. 100 g 11 05/14/19 25 Active acetaminophen (Tylenol Extra Strength) 500 MG tabletIndicatio ns:Lumbar back pain Take 1 tablet (500 mg) by mouth every 6 (six) hours if needed for mild pain for up to 15 days. 30 tablet 1 05/14/19 25 025 Active Diclofenac Sodium (Voltaren) 1 % gelIndications: Lumbar back pain,Chronic right shoulder pain Apply 2 g topically 3 times daily. 100 g 11 07/13/19 24 025 Discontinued(Re order (will not trigger notification to Pharmacy)) triamcinolone (Kenalog) 0.1 % creamIndication s:Other atopic dermatitis APPLY TOPICALLY TO THE AFFECTED AREA(S) OF ARMS AND TRUNK TWICE DAILY DIRECTED FOR FOURTEEN DAYS 45 g 1 03/12/19 25 025 Discontinued Active Problems Problem Noted Date Diagnosed Date Gingival recession, localized 05/09/2024 Other chest pain 02/12/2024 Assessment & Plan (02/12/2024 4:17 PM EST): Cardiology referral Other atopic dermatitis 02/12/2024 Assessment & Plan (02/12/2024 4:17 PM EST): Triamcinolone and Banophen prescribed I will refer him to allergy and personal injury law specialist Gastroesophageal reflux disease without esophagi tis [...] If problem persist or worse come to [facility] possible referral to surgery Cognitive impairment 07/13/2023 Assessment & Plan (07/13/2023 11:03 AM EDT): I will call and find out why his [employer] [employer] hours where reduced Dental plaque 06/20/2023 Teeth [...] The eGFR is based on the CKD-EPI 2020 equation. To calculate the new eGFR from a previous Creatinine or Cystatin C result, go to https://www.kidney.org/professionals/ kdoqi/gfr%5Fcalculator BUN/Creatinine Ratio 6 - 22 (calc) NOT APPLICABLE NOT APPLICABLE Sodium 135 - 146 mmol/L 135 138 Potassium 3.5 - 5.3 mmol/L 4.7 4.9 Chloride 98 - 110 mmol/L 98 100 Carbon Dioxide 20 - 32 mmol/L 28 29 Calcium 8.6 - 10.3 mg/dL 9.9 10.5??High?? Serum calcium no longer elevated. Continue to maintain proper hydration. Chronic bilateral low back pain 08/31/2022 Assessment & Plan (05/13/2024 11:18 AM EDT): Continue with diclofenac gel apply twice daily if needed Continue with acetaminophen 500 mg every 6 hours as needed Assessment & Plan (07/13/2023 11:03 AM EDT): [...] has a colonoscopy scheduled for 09/14 at [facility]. Assessment & Plan (05/27/2022 9:43 AM EDT): Previous referrals: Audiology: 05/16/22 last appointment, doesn't remember name of audiology next appointment june 15. Gastro: waiting on appointment, [facility] PT: waiting on appointment, [facility] Optometry: Never got a call, new referral sent Essential hypertension 01/05/2022 Assessment & Plan (05/13/2024 11:18 AM EDT): Maintenance: BMP: ordered Lipid Panel: ordered ASCVD Risk:10.3% on atorvastatin 80mg daily I advised: - Aerobic exercise to reduce [...] consulting health care provider Assessment & Plan (02/12/2024 4:15 PM EST): [...] Encounters Date Type Department Care Team Description 05/13/2024 10:00 AM EDT Office Visit [facility] [address] [place] [address] Myla Subramanian MD Essential hypertension (Primary Dx); Lumbar back pain; Chronic right shoulder pain; Chronic bilateral low back pain, unspecified whether sciatica present 05/13/2024 Travel 05/09/2024 2:00 PM EDT Office Visit [facility] ADULT DENTAL [address] [place] [address] Ruth Vega Gingival recession, localized (Primary Dx); Dental calculus; Teeth missing 05/02/2024 Patient Outreach [facility] [address] [place] [address] Myla Subramanian MD Pre-visit Planning (SDOH screening negative and tobacco screening negative) 04/30/2024 9:15 AM EDT Office Visit [facility] & PEDS [address] [place] [address] Ralph Black MD Chronic eczema (Primary Dx) 04/30/2024 Travel 04/26/2024 Population Health Risk Score [facility] () Department [address] [address] Provider, Population Health Generic 04/23/2024 Refill [facility] [address] [place] [address] Name, MD Seng Other atopic dermatitis 04/07/2024 Refill [facility] [address] [place] [address] Myla Subramanian MD Essential hypertension 03/25/2024 Refill [facility] [address] [place] [address] Suzanne Ma MD Atopic dermatitis, unspecified type 03/12/2024 Refill [facility] [address] [place] [address] Myla Subramanian MD Other atopic dermatitis from Last 3 Months Immunizations Name Administration [...] housing situation today? I have trace madden 05/02/[address] you li ve. Do you have problems with any of the following? None of the above 05/02/2024 Food Insecurity Answer Date Recorded Within the past 12 months, y ou worried that your food would run out before you got money to buy more: Never True 05/02/2024 Within the past 12 months,th e food you bought just didn't last and you didn't have enough money to get more: Never True Transportation Answer Date Recorded In the past 12 months, has l ack of transportation kept you from medical appts, meetings, work or from getting things needed for daily living? No 05/02/2024 Utilities Answer Date Recorded In the past 12 months, has t he electric, gas, oil or water company threatened to shut off services in your home? No 05/02/2024 Depression Answer Date Recorded Patient Health Questionnaire-2 Score 2 07/13/2023 Internet Access Answer Date Recorded Internet Access Q1 Yes 05/02/2024 Internet Access Q2 Not on file 05/02/2024 Sex and Gender Information Value Date Recorded Sex Assigned at Male 12/13/2021 10:17 AM EDT Legal Sex Male 10:17 AM EDT Gender Identity Male 12/13/2021 10:17 AM EDT Sexual Orientation Don't know 12/13/2021 10 :17 AM EDT Last Filed Vital Signs Vital Sign Reading Time Taken Comments Blood Pressure 122/83 05/13/2024 9:57 AM EDT Pulse 88 05/13/2024 9:26 AM EDT Temperature 35.7 ??C (96.3 ??F) 05/13/2024 9:26 AM ED T Respiratory Rate 16 05/13/2024 9:26 AM EDT Oxygen Saturation 98% 05/13/2024 9:26 AM EDT Inhaled Oxygen Concentration - - Weight 56.8 kg (125 lb 2 oz) 05/13/2024 9:26 AM EDT Height 167.6 cm (5' 6 ) 05/13/2024 9:26 AM EDT Body Mass Index 20.2 05/13/2024 9:26 AM EDT Plan of Treatment Upcoming Encounters Date Type Department Care Team (Late st Contact Info) Description 11/15/2024 10:00 AM EDT Office Visit [facility] ADULT D[facility] [address] [place] [address] Gary, Ruth [address] [place] [address] Health Maintenance Due Date Last Done Comments Anal Pap 1960 CT Colonography 1960 Colonoscopy 1960 FIT 1960 FOBT 1960 Sigmoidoscopy 1960 Hepatitis A Vaccines (1 of 2 - Risk 2-dose series) 02/04/1979 Pneumococcal Vaccine: 50+ Years (1 of 1 - PCV) 02/04/2010 Hepatitis B Vaccines (1 of 3 - Risk 3-dose series) 2020 COVID-19 Vaccine ( season) 2023 03/03/2022, 01/28/2021, 07/17/2020, Additional history exists Diabetes: Hemoglobin A1C 04/10/2024 024, 08/31/2022, 05/27/2022, Additional history exists Depression Screening 07/12/2024 07/13/2023, 07/13/19 24 Dental Oral Exam 11/10/2024 05/09/2024, , 02/23/2022 Dental Prophylaxis 11/10/2024 05/09/2024, 0 06/20/2023, 09/01/2022 Alcohol/Substance Use Screening 02/11/2025 02/12/2024 SDOH Screening 05/02/2025 05/02/2024 Dental X-Ray: Bitewings 05/10/2025 05/10/19 25, 06/20/2023, 02/23/2022 Tobacco Screening 05/13/2025 05/13/2024 Colorectal Cancer Screening 10/22/2026 FIT DNA/Cologuard 10/22/2026 10/23/2023 Lipid Panel 03/28/2027 03/28/2022, 11/13, 01/25/2021, Additional history exists Dental X-Ray: Full Mouth 05/11/2027 05/09/2024, 11/14 DTaP/Tdap/Td Vaccines (2 - Td or Tdap) [...] Procedure Name Priority Date/Time Associated Diagnosis Comments COMPREHENSIVE PERIODONTAL EVALUATION - NEW OR ESTABLISHED PATIENT Routine 05/09/2024 2:00 PM EDT PERIODIC ORAL EVALUATION - ESTABLISHED PATIENT Routine 05/09/2024 2:00 PM EDT CASE PRESENTATION, DETAILED AND EXTENSIVE TREATMENT PLANNING Routine 05/09/2024 2:00 PM EDT Gingival recession, localized Dental calculus Teeth missing ORAL HYGIENE INSTRUCTIONS Routine 05/09/2024 2:00 PM EDT Gingival recession, localized Dental calculus Teeth missing INTRAORAL - COMPLETE SERIES OF RADIOGRAPHIC IMAGES Routine 05/09/2024 2:00 PM EDT Gingival recession, localized Dental calculus Teeth missing PROPHYLAXIS - ADULT Routine 05/09/2024 2 :00 PM EDT Dental calculus LAB COLOGUARD?? COLON CANCER SCREEN Routine 10/23/2023 7:07 AM EDT Colon cancer screening POCT GLYCATED HEMOGLOBIN, TOTAL Routine 04/10/2023 3:11 [...] colon cancer screening (10/23/2023 7:07 AM EDT) Cologuard Result Negative Negative 10/26/19 10:15 PM EDT [facility] (CLIA #:[id number]) Comment: NEGATIVE TEST RESULT. A negative Cologuard [...] screened with both Cologuard and colonoscopy. (Nelia Robin et al, N Engl J Med 2014;370(14):1286- 1297) The normal value (reference range) for this assay is negative. COLOGUARD RE-SCREENING RECOMMENDATION: Periodic colorectal cancer screening is an important part of preventive healthcare for asymptomatic individuals at average risk for colorectal cancer. ??Following a negative Cologuard result, the [place] [employer] and U.S. Multi-Society Task Force screening guidelines recommend a Cologuard re-screening interval of 3 years. References: [place] [employer] Guideline for Colorectal Cancer Screening: https://www.cancer.org/cancer/ieoby-qqkvvy-lpbzvu/ofhnjtfsa-exeqaaaku-uxuynpu/ac s-rec ommendations.html.; José DAVENPORT, Bryce FRASER, Ashley BhaktaK, Colorectal Cancer Screening: Recommendations for Physicians and Patients from the U.S. Multi-Society Task Force on Colorectal Cancer Screening , Am J Gastroenterology 2017; 112:1215-9484. TEST DESCRIPTION: Composite algorithmic analysis of stool [...] screened with both Cologuard and colonoscopy. (Nelia Lares. et al, N Engl J Med 2014;370(14):3099-4483.) Cologuard may produce a false negative or false positive result (no colorectal cancer or precancerous polyp present at colonoscopy follow up). A negative Cologuard test result does not guarantee the absence of CRC or advanced adenoma (pre-cancer). The current Cologuard screening interval is every 3 years. ([place] [employer] and U.S. Multi-Society Task Force). Cologuard performance data in a 10,000 patient pivotal study using colonoscopy as the reference method can be accessed at the following location: www.[employer]results. Additional description of the Cologuard test process, warnings and precautions can be found at www.cologuard.com. Stool specimen (specimen) 10/23/2023 7:07 AM EDT 10/24/2023 2:06 PM EDT Myla Sena MD LAB MOLECULAR DIAGNOS TICS ORDERABLES Final Result [facility] (CLIA #:[id number]) [place] [address], * (ABNORMAL) POCT HGB A1C (04/10/2023 3:11 PM EST) Hemoglobin A1C 6.3(A) 4.0 - 6.0 % QC Media Lot # [id number] Lot# Expiration Date Blood 04/10/2023 3:11 PM EST us Myla Sena MD POINT OF CARE TEST EN TER/EDIT ORDERABLES Final Result * Hepatitis C Antibody with Reflex to HCV, RNA, Quantitative, Real-Time PCR (07/22/2022 9:31 AM EDT) Pathologist [facility] Hepatitis C Antibody NON-REACT DEONDRE NON-REACT DEONDRE [facility] [place] [facility] Index 0.07 <1.00 [facility] Comment: HCV antibody was non-reactive. There is no laboratory evidence of HCV infection. In most cases, no further action is required. However, if recent HCV exposure is suspected, a test for HCV RNA (test code 33739) is suggested. For additional information please refer to http://education.Etix.Simbionix/faq/YHI88g8 (This link is being provided for informational/ educational purposes only.) Blood Venous blood specimen / Unknown 07/22/2022 9:31 AM EDT 07/22/2022 9:31 AM EDT Narrative [facility] - 07/23/2022 12:54 AM EDT FASTING:NO FASTING: NO Alfonso Cuello [facility] LAB BLOOD ORDERABLES Final Res ult Performing Organization Address [facility]/ZIP Co de Phone Number [facility] [address], [place] [address] [facility] [place] [facility] [address] [place] [address] * (ABNORMAL) Lipid Panel, Standard (03/28/2022 8:03 AM EST) Cholesterol, Total 214(H) <200 mg/dL [facility] [place] [facility] HDL Cholesterol 77 > OR = 40 mg/dL [facility] [place] [facility] Triglycerides 75 <150 mg/dL [facility] [place] [facility] LDL Cholesterol 120(H) mg/dL (calc) [facility] [place] [facility] Comment: Reference range: <100 Desirable range <100 mg/dL for primary prevention; ?? <70 mg/dL for patients with CHD or diabetic patients with > or = 2 CHD risk factors. LDL-C is now calculated using the Aramis-Sheryl calculation, which is a validated novel method providing better accuracy than the Friedewald equation in the estimation of LDL-C. Aramis DELGADO et al. KAYLI. 2013;310(19): 6411-8492 (http://education.BioMax/faq/XNK549) Chol/HDLC Ratio 2.8 <5.0 (calc) [facility] [place] [facility] Non-HDL Cholesterol 137(H) <130 mg/dL (calc) [facility] [place] [facility] Comment: For patients with diabetes plus 1 major ASCVD risk factor, treating to a non-HDL-C goal of <100 mg/dL (LDL-C of <70 mg/dL) is considered a therapeutic option. Blood Venous blood specimen / Unknown 03/28/2022 8:03 AM EST 03/28/2022 8:03 AM EST Narrative [facility] - 03/28/2022 8:16 PM EST FASTING:YES FASTING: YES Alfonso Cuello [facility] LAB BLOOD ORDERABLES Final Res ult Performing Organization Address [facility] Co de Phone Number [facility] [address], [place] [address] [facility] [address], ([address]) [place] [address] * HIV 1/2 ANTIGEN/ANTIBODY,FOURTH GENERATION W/RFL (08/04/2021 10:05 AM EDT) HIV-1/2 ANTIGEN AND ANTIBODIES, 4TH GENERATION W/ REFLEX NON-REACT DEONDRE NON-REACT DEONDRE [facility] Comment: HIV-1 antigen and HIV-1/HIV-2 [...] ? For additional information please refer to http://education.Surefield/faq/VYX232 (This link is being provided for informational/ educational purposes only.) ? The performance of this assay has not been clinically validated in patients less than 2 years old. ?? 08/04/2021 10:0 5 AM EDT us Tresa Paz NP LAB BLOOD ORDERABLES Final Resu lt [facility] Formerly [facility] Anywhere [address] from Last 3 Months or Most Recently Relevant to Health Maintenance Insurance [address] [place] [id number] [facility] STANDARD MEDICARE DENTAL-[facility] MEDICAID STAND ADULT Care Teams Sr. Manager Marketing Relationship Specialty Start Date End Date Myla Subramanian MD [address] [place] [id number] PCP - General Internal Medicine 02/10/23
--- OUTSIDE RECORDS SUMMARY | 2024-05-14 08:26 | XMS_ITS | Encounter Summary ---
Author Organization [employer] [facility] Address [address] [facility] [address] [place] [address] Care Team Providers Care Fruit Sprayer Name Role Phone Cuate Alfonso AGNLogan Primary Care Provider Unavail Sarah Suárez Primary Care Provider [phone] Myla Subramanian MD Primary Care Provide r Encounter Details Date Type Department Care Team (Late st Contact Info) Description 01/05/2022 Abstract [facility] ADULT D[facility] [address] [place] [address] Dental, Provider, DDS Social History Tobacco Use [...] Description 11/15/2024 10:00 AM EDT Office Visit [facility] ADULT D[facility] [address] [place] [address] Gary, Ruth [address] [place] [address] documented as of this encounter Procedures Procedure [...] on filedocumented in this encounter Care Teams Fruit Sprayer Relationship Specialty Start Date End Date Alfonso Cuello AGNP PCP - General Family Medicine 11/16/21 10/27/22 Sarah Sargent FNP [address] [place] [address] PCP - General Family Medicine 10/28/22 02/09/23 Myla Subramanian MD [address] [place] [address] PCP - General Internal Medicine 02/10/23 documented as of this encounter
--- OUTSIDE RECORDS SUMMARY | 2024-05-14 08:26 | XMS_ITS | Encounter Summary ---
Author Organization [email or web address] Address [address] [place] [address] Care Team Providers Care Bushel Girl Name Role Phone Myla Subramanian MD Primary Care Provide r Reason for Visit * Reason Comments FMX Routine Cleaning Dental Exam Perio chart Encounter Details Date Type Department Care Team ([facility] Contact Info) Description 05/09/2024 2:00 PM EDT Office Visit [facility] ADULT DENTAL [address] [place] [address] Gary Ruth [address] [place] [address] Gingival recession, localized (Primary Dx); Dental calculus; Teeth missing Social History Tobacco Use Types Packs/Day Years [...] AM EDT documented as of this encounter Last Filed Vital Signs Vital Sign Reading Time Taken Comments Blood Pressure 138/82 05/09/2024 2:06 PM EDT Pulse - - Temperature - - Respiratory Rate - - Oxygen Saturation - - Inhaled Oxygen Concentration - - Weight - - Height - - Body Mass Index - - documented in this encounter Progress Notes * Ruth Vega - 05/09/2024 2:00 PM EDT 2pm Appoint for FMX, Perio chart, Prophy P. Exam Dr. Matos. Patient ID: Bereket Parks is a 64 y.o. male. Time Out: Timeout Date: 05/09/24, Timeout Time: 1408 (FMX, Prophy, Perio chart, P. Exam: with Dr. Matos) Location: [facility] Tooth: Maxilla and Mandible Procedure: Exam, X-rays, Prophylaxis, and Perio chart Verified the above with patient, accountant assistant, and provider. Confirmed via patient's chart, intraorally and by radiographs. Fire Lookout: not applicable Medical Hx: Vitals: Blood pressure 138/82. Medications, Med Hx reviewed with patient and updated in chart. Treatment Provided Dental procedures in this visit D1110 - PROPHYLAXIS - ADULT (Completed) Service provider: Ruth Vega Billing provider: Rowena Villatoro DDS D0210 - INTRAORAL - COMPLETE SERIES OF RADIOGRAPHIC IMAGES (Completed) Service provider: Ruth Vega Billing provider: Rowena Villatoro DDS D1330 - ORAL HYGIENE INSTRUCTIONS (Completed) Service provider: Ruth eVga Billing provider: Rowena Villatoro DDS D9450 - CASE PRESENTATION, DETAILED AND EXTENSIVE TREATMENT PLANNING (Completed) Service provider: Ruth Vega Billing provider: Rowena Villatoro DDS Instruments Used: Ultrasonic Scalers and Prophy angle Fluoride: N/A Oral Cancer Screening: No lesions Head/Neck Exam: No Lesions Calculus: Light and Moderate Plaque: Light and Moderate Stain: Light Bleeding: Light and Moderate Gingiva: Recession- localized OH: Fair Perio Chart: Completed Oral hygiene instructions provided to patient including brushing technique and flossing. Recommendations: Houston two times daily, modified graf technique, Floss daily, Electric toothbrush, Soft bristle toothbrush, Houston Tongue, Anti-sensitivity toothpaste Recall Frequency: 6 mo NV: 6 months prophy Hygienist: Ruth Vega RDH Cosigned by Rowena Villatoro DDS at 05/09/2024 3:48 PM EDT Associated attestation - Rowena Villatoro DDS - 05/09/2024 3:48 PM EDT I have reviewed the documentation and dental procedures made by the rendering provider, Ruth Vega RDH , and approve their chart entries for this visit. Rowena Villatoro DDS * Rowena Villatoro DDS - 05/09/2024 2:00 PM EDT Dental procedures in this visit D1110 - PROPHYLAXIS - ADULT (Completed) Service provider: Ruth Vega Billing provider: Rowena Villatoro DDS D0210 - INTRAORAL - COMPLETE SERIES OF RADIOGRAPHIC IMAGES (Completed) Service provider: Ruth Vega Billing provider: Rowena Villatoro DDS D1330 - ORAL HYGIENE INSTRUCTIONS (Completed) Service provider: Ruth Vega Billing provider: Rowena Villatoro DDS D9450 - CASE PRESENTATION, DETAILED AND EXTENSIVE TREATMENT PLANNING (Completed) Service provider: Ruth Vega Billing provider: Rowena Villatoro DDS D0120 - PERIODIC ORAL EVALUATION - ESTABLISHED PATIENT (Completed) Service provider: Rowena Villatoro DDS Billing provider: Rowena Villatoro DDS D0180 - COMPREHENSIVE PERIODONTAL EVALUATION - NEW OR ESTABLISHED PATIENT (Completed) Service provider: Rowena Villatoro DDS Billing provider: Rowena Villatoro DDS Patient ID: Bereket Parks is a 64 y.o. male. Time Out: Timeout Date: 05/09/24, Timeout Time: 1408 (FMX, Prophy, Perio chart, P. Exam: with Dr. Matos) Location: [facility] Tooth: Maxilla and Mandible Procedure: Exam, X-rays, and Prophylaxis Verified the above with patient, accountant assistant, and provider. Confirmed via patient's chart, intraorally and by radiographs. Fire Lookout: not applicable Chief Complaint Patient presents with FMX Routine Cleaning Dental Exam Perio chart Medical Hx: Vitals: Blood pressure 138/82. Past Medical History: Diagnosis Date Arthritis Chest pain Hay fever Hearing impaired High blood pressure HLD (hyperlipidemia) Hypertension Pre-diabetes Medications: Outpatient Encounter Medications as of 05/09/2024 Medication Sig Dispense Refill atorvastatin (Lipitor) 80 MG tablet Take 1 tablet (80 mg) by mouth Once per day. 30 tablet 2 Blood Pressure Monitor kit Use as directed 3x/week 1 kit 0 cetirizine (ZyrTEC) 10 MG tablet TAKE 1 TABLET BY MOUTH EVERY DAY 90 tablet 1 Diclofenac Sodium (Voltaren) 1 % gel Apply 2 g topically 3 times daily. 100 g 11 diphenhydrAMINE (Banophen) 25 MG capsule Take 1 capsule (25 mg) by mouth every 8 (eight) hours if needed for itching for up to 20 days. 30 capsule 1 Emollient (CeraVe Moisturizing) cream Apply 1 each topically Every 4-6 hours as needed (For itching). 340 g 11 gabapentin (Neurontin) 300 MG capsule Take 1 capsule by mouth at bedtime 90 capsule 1 hydrocortisone 1 % cream APPLY TO THE AFFECTED AREA(S) TOPICALLY TWICE DAILY 28 g 4 lisinopril-hydroCHLOROthiazide 20-12.5 MG tablet TAKE 1 TABLET BY MOUTH EVERY DAY IN THE MORNING 90tablet 1 triamcinolone (Kenalog) 0.1 % cream APPLY TOPICALLY TO AFFECTED AREA(S) OF ARMS AND TRUNK TWICE DAILY DIRECTED FOR FOURTEEN DAYS 45 g 1 triamcinolone (Kenalog) 0.1 % cream Apply topically if needed in the morning and at bedtime (pain and swelling). 80 g 3 No facility-administered encounter medications on file as of 05/09/2024. Objective HPI Soft Tissue Exam No findings documented this visit Head and Neck Exam: Lymph Nodes, Lips, Palate, Buccal Mucosa, Floor of Mouth, Tongue, Tonsils, Alveolar Ridges, Oropharynx, Salivary Ducts, and Vestibules - no significant findings observed today Details: patient with rash on neck and extended into body, pt visited recently and is on treatment for allergies exacerbated by cold weather. OCS: negative Dental Exam Radiographic Interpretation: Associated radiographs for today's visit were reviewed and finding(s) were discussed with the patient. Findings include: moderate calculus, moderate bone loss, stable. Fair OH Pt w/difficulty wearing Rpds due to poor dexterity. Hard Tissue Exam: No decay, missing teeth Perio Dx: fair OH, moderate plaque and calculus. Oral Cancer Risk: Low Risk Oral Hygiene Instructions: Houston two times daily, modified graf technique, Floss daily, Soft bristle toothbrush, [place] Tongue Caries Risk Assessment: Low- no risk factor Assessment/Plan 6 mo periodic exam Pad Patient tolerated procedure well, all questions answered and expressed understanding. Dismissed in good condition. NV: 6 mo periodic exam Pad Production Assembly Supervisor: Ruth Vega Dentist: Rowena Villatoro DDS documented in this encounter Plan of Treatment Upcoming Encounters Date Type Department Care Team (Late st Contact Info) Description 11/15/2024 10:00 AM EDT Office Visit [facility] ADULT DENTAL [address] [place] [address] Ruth Vega [address] [place] [address] Scheduled Orders Name Type Priority Associated Diagnoses Orde r Schedule CASE PRESENTATION, DETAILED AND EXTENSIVE TREATMENT PLANNING Dental Routine 1 Occurrences starting 05/09/2024 ORAL HYGIENE INSTRUCTIONS Dental Routine 1 Occurrences starting 05/09/2024 PROPHYLAXIS - ADULT Dental Routine 1 Occ urrences starting 05/09/2024 documented as of this encounter Procedures Procedure Name Priority Date/Time Associated Diagnosis Comments PROPHYLAXIS - ADULT Routine 05/09/2024 2 :00 PM EDT Dental calculus PERIODIC ORAL EVALUATION - ESTABLISHED PATIENT Routine 05/09/2024 2:00 PM EDT ORAL HYGIENE INSTRUCTIONS Routine 2024 2:00 PM EDT Gingival recession, localized Dental calculus Teeth missing INTRAORAL - COMPLETE SERIES OF RADIOGRAPHIC IMAGES Routine 05/09/2024 2:00 PM EDT Gingival recession, localized Dental calculus Teeth missing COMPREHENSIVE PERIODONTAL EVALUATION - NEW OR ESTABLISHED PATIENT Routine 05/09/2024 2:00 PM EDT CASE PRESENTATION, DETAILED AND EXTENSIVE TREATMENT PLANNING Routine 05/09/2024 2:00 PM EDT Gingival recession, localized Dental calculus Teeth missing documented in this encounter Visit Diagnoses Diagnosis Gingival recession, localized- Primary Dental calculus Accretions on teeth Teeth missing Acquired absence of teeth, unspecified documented in this encounter Additional Health Concerns Assessment Noted Time PHQ-9 Depression Total Score: 8 07/13/19 24 10:06 AM EDT documented as of this encounter Care Teams Bushel Girl Relationship Specialty Start Date End Date Myla Subramanian MD [address] [place] [address] PCP - General Internal Medicine 02/10/23 documented as of this encounter
--- OUTSIDE RECORDS SUMMARY | 2024-05-14 08:26 | XMS_ITS | Encounter Summary ---
Author Organization [employer] Address [address] [place] [address] Care Team Providers Care Assembler Final Name Role Phone Myla Subramanian MD Primary Care Provide r Reason for Visit * Reason Comments Med Refill Encounter Details Date Type Department Care Team ([facility] st Contact Info) Description 07/13/2023 Refill [facility] MEDICINE [address] [place] [address] Sarah Sargent FNP [address] [place] [address] Essential hypertension Social History Tobacco Use Types [...] Description 11/15/2024 10:00 AM EDT Office Visit [facility] ADULT DENTAL [address] [place] [address] Gary, Ruth [address] [place] [address] documented as of this encounter Visit Diagnoses Diagnosis Essential hypertension Unspecified essential hypertension documented in this encounter Additional Health Concerns Assessment Noted Time PHQ-9 Depression Total Score: 8 07/13/19 24 10:06 AM EDT documented as of this encounter Care Teams Assembler Final Relationship Specialty Start Date End Date Myla Subramanian MD [address] [place] [address] PCP - General Internal Medicine 02/10/23 documented as of this encounter
--- OUTSIDE RECORDS SUMMARY | 2024-05-14 08:26 | XMS_ITS | Encounter Summary ---
Author Organization [facility] Address [address] [place] [address] Care Team Providers Care Convenience Store Clerk Name Role Phone Myla Subramanian MD Primary Care Provide r Reason for Visit * Reason Onset Date Comments increase in PORTFOLIO LEAD hours 04/18/2023 Spoke with Uma at [facility] to discuss Patient request for a letter from Provider to increase his PORTFOLIO LEAD hours. Presently he has 9 hours per week. Uma stated that under [employer] program the maximum hours is 9 per week. If patient feels he needs more there needs to be a reason for the increase, patient saw PCP in March and did not mention that he needs more PORTFOLIO LEAD hours. Uma will contact patient to see if there is a need and if yes he could possibly be [facility] for [facility] PORTFOLIO LEAD program. Encounter Details Date Type Department Care Team ([facility] st Contact Info) Description 04/18/2023 Telephone [facility] MED[facility]INE [address] [place], [place] [phone] Myla Subramanian MD [address] [place], [place] [phone] increase in PORTFOLIO LEAD hours (Spoke with Uma at [facility] to discuss Patient request for a letter from Provider to increase his PORTFOLIO LEAD hours. Presently he has 9 hours per week. Uma stated that under [employer] program the maximum hours is 9 per week. If patient feels he needs more there needs to be a reason for the increase, patient saw PCP in March and did not mention that he needs more PORTFOLIO LEAD hours. Uma will contact patient to see if there is a need and if yes he could possibly be referred [facility] for their PORTFOLIO LEAD program. ) Social History Tobacco Use Types [...] 10:00 AM EDT Office Visit [facility] ADULT DENTAL [address] [place] [address] Howard Vegaaris [address] [place] [address] documented as of this encounter Visit Diagnoses Not on filedocumented in this encounter Additional Health Concerns Assessment Noted Time PHQ-9 Depression Total Score: 6 05/28/19 23 9:06 AM EDT documented as of this encounter Care Teams Convenience Store Clerk Relationship Specialty Start Date End Date Myla Subramanian MD [address] [place] [address] PCP - General Internal Medicine 02/10/23 documented as of this encounter
--- OUTSIDE RECORDS SUMMARY | 2024-05-14 08:26 | XMS_ITS | Encounter Summary ---
Author Organization [employer] Address [address] [place] [address] Care Team Providers Care Food Stylist Name Role Phone Myla Subramanian MD Primary Care Provide r Encounter Details Date Type Department Care Team (Latest Contact Info) Description 05/13/2024 Travel Social History Tobacco Use Types Packs/Day Years [...] Description 11/15/2024 10:00 AM EDT Office Visit [facility] ADULT DENTAL [address] [place] [address] Gary, Ruth [address] [place] [address] documented as of this encounter Visit Diagnoses Not on filedocumented in this encounter Additional Health Concerns Assessment Noted Time PHQ-9 Depression Total Score: 8 07/13/19 24 10:06 AM EDT documented as of this encounter Care Teams Food Stylist Relationship Specialty Start Date End Date Myla Subramanian MD [address] [place] [address] PCP - General Internal Medicine 02/10/23 documented as of this encounter
--- OUTSIDE RECORDS SUMMARY | 2024-05-14 08:26 | XMS_ITS | Encounter Summary ---
Author Organization [employer] Address [address] [place] [address] Care Team Providers Care Environmental Science Technician Name Role Phone Myla Subramanian MD Primary Care Provide r Reason for Visit * Reason Comments chronic condition Encounter Details Date Type Department Care Team ([facility] Contact Info) Description 05/13/2024 10:00 AM EDT Office [address] [facility] MEDICINE [address] [place] [address] Myla Subramanian MD [address] [place] [address] Essential hypertension (Primary Dx); Lumbar back pain; Chronic right shoulder pain; Chronic bilateral low back pain, unspecified whether sciatica present Social History Tobacco Use Types Packs/Day Years [...] your housing situation today? I have [employer] 05/02/[address] you li [...] Mass Index 20.2 05/13/2024 9:26 AM EDT documented in this encounter Progress Notes * Myla Sena MD - 05/13/2024 10:00 AM EDT SUBJECTIVE: Bereket Parks is a 64 y.o. year old male who presents for Chronic Disease Management . Acute Concerns: Patient reports polyarthralgia and lower back pain he is asking for refills for his Voltaren gel and acetaminophen Social History Social History Narrative Not on file Patient Active Problem List Diagnosis Essential hypertension Gastroesophageal reflux disease Hyperlipidemia Prediabetes Sensorineural hearing loss, bilateral Routine adult health maintenance Pain in right elbow Right leg pain Serum calcium elevated Chronic bilateral low back pain Allergic rash present on examination Dental plaque Teeth missing Abscess Cognitive impairment Gastroesophageal reflux disease without esophagitis Colon cancer screening Other chest pain Other atopic dermatitis Gingival recession, localized No family history on file. Review of Systems Constitutional: Negative. HENT: Negative. Respiratory: Negative. Cardiovascular: Negative. Musculoskeletal: Positive for arthralgias, back pain and myalgias. OBJECTIVE: Vitals: 05/13/24 0926 05/13/24 0957 BP: (!) 142/64 122/83 BP Location: Left arm Left arm Patient Position: Sitting Sitting BP Cuff Size: Adult Adult Pulse: 88 Resp: 16 Temp: 96.3 ??F (35.7 ??C) TempSrc: Temporal SpO2: 98% Weight: 125 lb 2 oz (56.8 kg) Height: 5' 6 (1.676 m) Physical Exam Constitutional: Appearance: Normal appearance. Cardiovascular: Rate and Rhythm: Normal rate and regular rhythm. Pulmonary: Effort: Pulmonary effort is normal. Breath sounds: Normal breath sounds. Abdominal: General: Abdomen is flat. Palpations: Abdomen is soft. Musculoskeletal: Right lower leg: No edema. Left lower leg: No edema. Neurological: Mental Status: He is alert. Follow Up: No follow-ups on file. Current Outpatient Medications on File Prior to Visit Medication Sig Dispense Refill atorvastatin (Lipitor) 80 MG tablet Take 1 tablet (80 mg) by mouth Once per day. 30 tablet 2 Blood Pressure Monitor kit Use as directed 3x/week 1 kit 0 cetirizine (ZyrTEC) 10 MG tablet TAKE 1 TABLET BY MOUTH EVERY DAY 90 tablet 1 diphenhydrAMINE (Banophen) 25 MG capsule Take 1 [...] bedtime (pain and swelling). 80 g 3 [DISCONTINUED] Diclofenac Sodium (Voltaren) 1 % gel Apply 2 g topically 3 times daily. 100 g 11 No current facility-administered medications on file prior to visit. Problem List Items Addressed This Visit Essential hypertension - Primary Maintenance: BMP: ordered Lipid Panel: ordered ASCVD [...] pain, palpitations, SOB, syncope, or sudden changes inmental status. - Do not change or discontinue current prescriptions without first consulting health care provider Relevant Orders Lipid Panel, Standard Basic Metabolic Panel Chronic bilateral low back pain Continue with diclofenac gel apply twice daily if needed Continue with acetaminophen 500 mg every 6 hours as needed Other Visit Diagnoses Lumbar back pain Relevant Medications Diclofenac Sodium (Voltaren) 1 % gel acetaminophen (Tylenol Extra Strength) 500 MG tablet Chronic right shoulder pain Relevant Medications Diclofenac Sodium (Voltaren) 1 % gel documented in this encounter Miscellaneous Notes * Assessment & Plan Note - Myla Sena MD - 05/13/2024 11:18 AM EDT Associated Problem(s): Chronic bilateral low back pain Continue with diclofenac gel apply twice daily if needed Continue with acetaminophen 500 mg every 6 hours as needed * Assessment & Plan Note - Myla Sena MD - 05/13/2024 11:18 AM EDT Associated Problem(s): Essential hypertension Maintenance: BMP: ordered Lipid Panel: ordered ASCVD [...] pain, palpitations, SOB, syncope, or sudden changes inmental status. - Do not change or discontinue current prescriptions without first consulting health care provider documented in this encounter Plan of Treatment Upcoming Encounters Date Type Department Care Team (Late st Contact Info) Description 11/15/2024 10:00 AM EDT Office Visit [facility] ADULT DENTAL [address] [place] [address] Gary, Ruth [address] [place] [address] Scheduled Orders Name Type Priority Associated Diagnoses Orde r Schedule Lipid Panel, Standard Lab Routine Essential hypertension Expected: 05/13/2024 (Approximate), Expires: 05/13/2025 Basic Metabolic Panel Lab Routine Essential hypertension Expected: 05/13/2024 (Approximate), Expires: 05/13/2025 documented as of this encounter Visit Diagnoses Diagnosis Essential hypertension- Primary Unspecified essential hypertension Lumbar back pain Lumbago Chronic right shoulder pain Pain in joint, shoulder region Chronic bilateral low back pain, unspecified whether sciatica present documented in this encounter Additional Health Concerns Assessment Noted Time PHQ-9 Depression Total Score: 8 07/13/19 24 10:06 AM EDT documented as of this encounter Care Teams Environmental Science Technician Relationship Specialty Start Date End Date Myla Subramanian MD [address] [place] [address] PCP - General Internal Medicine 02/10/23 documented as of this encounter
--- OUTSIDE RECORDS SUMMARY | 2024-05-14 08:26 | XMS_ITS | Encounter Summary ---
Author Organization [employer] Address [address] [facility] [address] [place] [address] Care Team Providers Care Eyeglass Maker Name Role Phone Alfonso Cuello Primary Care Provider Unavail Sarah Suárez Primary Care Provider [phone] Myla Subramanian MD Primary Care Provide r Encounter Details Date Type Department Care Team (Late st Contact Info) Description 09/13/2022 Telephone [facility] MEDICINE [address] [place] [address] Alfonso Cuello AGNP Social History Tobacco Use [...] from Emerita Diego RN- Will forward to [facility] nurse to fu as I am currently working other areas at [facility]. Tc from [facility] requesting status on physician summary form. [facility] to be signed by PCP for pt services to be covered. Please contact [facility] at [phone] * Telephone Encounter - Mayra Amos - 09/13/2022 12:39 PM EDT Tc from [facility] requesting status on physician summary form. Pt is currently on hold for [facility] andform needs to be signed by PCP for pt services to be covered. Please contact [facility] at [phone] documented in this encounter Plan of Treatment Upcoming Encounters Date Type Department Care Team (Late st Contact Info) Description 11/15/2024 10:00 AM EDT Office Visit [facility] ADULT DENTAL [address] [place] [address] Howard Vegaaris [address] [place] [address] documented as of this encounter Visit Diagnoses Not on filedocumented in this encounter Additional Health Concerns Assessment Noted Time PHQ-9 Depression Total Score: 6 05/28/19 23 9:06 AM EDT documented as of this encounter Care Teams Eyeglass Maker Relationship Specialty Start Date End Date Alfonso Cuello AGNP PCP - General Family Medicine 11/16/21 10/27/22 Sarah Sargent FNP [address] [place] [address] PCP - General Family Medicine 10/28/22 02/09/23 Myla Subramanian MD [address] [place] [address] PCP - General Internal Medicine 02/10/23 documented as of this encounter
--- OUTSIDE RECORDS SUMMARY | 2024-05-14 08:26 | XMS_ITS | Encounter Summary ---
Author Organization [employer] Address [address] [place] [address] Care Team Providers Care Test Facility Engineer Name Role Phone Myla Subramanian MD Primary Care Provide r Reason for Visit * Reason Comments Med Refill Encounter Details Date Type Department Care Team ([facility] Contact Info) Description 09/01/2023 Refill [facility] MEDICINE [address] [place] [address] Myla Subramanian MD [address] [place], [place] [phone] Abscess Social History Tobacco Use Types Packs/Day [...] Description 11/15/2024 10:00 AM EDT Office Visit [facility] ADULT DENTAL [address] [place] [address] Gary, Ruth [address] [place] [address] documented as of this encounter Visit Diagnoses Diagnosis Abscess Cellulitis and abscess of unspecified site documented in this encounter Additional Health Concerns Assessment Noted Time PHQ-9 Depression Total Score: 8 07/13/19 24 10:06 AM EDT documented as of this encounter Care Teams Test Facility Engineer Relationship Specialty Start Date End Date Myla Subramanian MD [address] [place] [address] PCP - General Internal Medicine 02/10/23 documented as of this encounter
--- OUTSIDE RECORDS SUMMARY | 2024-05-14 08:26 | XMS_ITS | Encounter Summary ---
Author Organization [facility] Address [address] [facility] 7t [place] [address] Care Team Providers Care Recovery Specialist Name Role Phone Alfonso Cuello AGNLogan Primary Care Provider Unavail Sarah Suárez Primary Care Provider [phone] Myla Subramanian MD Primary Care Provide r Encounter Details Date Type Department Care Team ([facility] Contact Info) Description 04/15/2022 Abstract [facility] ADULT DENTAL [address] [place] [address] Rowena Villatoro DDS [address] [place] [address] Social History Tobacco Use Types Packs/Day Years [...] Upcoming Encounters Date Type Department Care Team ([facility] Contact Info) Description 11/15/2024 10:00 AM EDT Office Visit [facility] ADULT DENTAL [address] [place] [address] Gary, Ruth [address] [place] [address] documented as of this encounter Visit Diagnoses Not on filedocumented in this encounter Care Teams Recovery Specialist Relationship Specialty Start Date End Date Alfonso Cuello AGNP PCP - General Family Medicine 11/16/21 10/27/22 Sarah Sargent FNP [address] [place], [place] [phone] PCP - General Family Medicine 10/28/22 02/09/23 Myla Subramanian MD [address] [place] [address] [phone] PCP - General Internal Medicine 02/10/23 documented as of this encounter
[2024-05-14 11:45] LABS: Anion Gap 11 (12-20); Blood Urea Nitrogen 20 mg/dL (9-16); Calcium 9.8 mg/dL (8.4-10.2); Carbon Dioxide 29 mmol/L (22-29); Chloride 103 mmol/L (96-108); Cholesterol 199 mg/dL (<200); Estimated Glomerular Filt Rate > 60; Glucose Random 99 mg/dL (60-115); HDL Cholesterol 71 mg/dL (>40); LDL Cholesterol Calculated 115 mg/dL (<100); Potassium 4.4 mmol/L (3.3-5.1); Sodium 139 mmol/L (135-145); Triglycerides 66 mg/dL (<150)
== END 2024-05-14 08:10 | disposition home or self-care (01) ==
LOC: HO.HHCL 08:09
PROVIDERS: Visit Provider Internal Medicine
DX: I10 Essential (primary) hypertension (principal)
CPT/HCPCS: 36415; 80048; 80061

== ENCOUNTER 2024-06-12 09:35 | Outpatient (REF) | payer MEDICARE, MEDICAID, SELFPAY ==
--- OUTSIDE RECORDS SUMMARY | 2024-06-12 10:21 | XMS_ITS | Encounter Summary ---
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 Presently he has 9 hours per week. Uma stated that under [employer] program the maximum hours is 9 per week. If patient feels he needs more there needs to be a reason for the increase, patient saw PCP in March and did not mention that he needs more WEB DESIGNER DEVELOPER hours. Uma will contact patient to see if there is a need and if yes he could [facility] WEB DESIGNER DEVELOPER program. 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 Presently he has 9 hours per week. Uma stated that under [employer] program the maximum hours is 9 per week. If patient feels he needs more there needs to be a reason for the increase, patient saw PCP in March and did not mention that he needs more WEB DESIGNER DEVELOPER hours. Uma will contact patient to see if there is a need and if yes he could possibly be [facility] for their WEB DESIGNER DEVELOPER program. ) Social History Tobacco Use Types [...] Description 11/15/2024 10:00 AM EDT Office Visit [facility] ADULT DENTAL [address] [place] [address] Howard Vegaaris [address] [place] [address] documented as of this encounter Visit Diagnoses Not on filedocumented in this encounter Additional Health Concerns Assessment Noted Time PHQ-9 Depression Total Score: 6 05/28/19 23 9:06 AM EDT documented as of this encounter Care Teams Social Work Msw Relationship Specialty Start Date End Date Myla Subramanian MD [address] [place] [address] PCP - General Internal Medicine 02/10/23 documented as of this encounter
--- OUTSIDE RECORDS SUMMARY | 2024-06-12 10:21 | XMS_ITS | Encounter Summary ---
Author Organization [employer] Address [address] [facility] 7t [place] [address] Care Team Providers Care Assistant Teaching Professor Name Role Phone Alfonso Cuello Primary Care Provider Unavail Sarah Suárez Primary Care Provider [phone] Myla Subramanian MD Primary Care Provide r Encounter Details Date Type Department Care Team (Late st Contact Info) Description 09/13/2022 Telephone [facility] MEDICINE [address] [place] [address] Alfonso Cuello AGNP Social History Tobacco Use [...] from Emerita Diego RN- Will forward to [facility] VNA nurse to fu as I am currently working other areas at [facility]. Tc from [facility] requesting status on physician summary form. [facility] by PCP for pt services to be covered. Please contact [facility] at [phone] * Telephone Encounter - Mayra Amos - 09/13/2022 12:39 PM EDT Tc from [facility] requesting status on physician summary form. Pt is currently on hold for [facility] andform needs to be signed by PCP for pt services to be covered. Please contact [facility] at [phone] documented in this encounter Plan of Treatment Upcoming Encounters Date Type Department Care Team (Late st Contact Info) Description 11/15/2024 10:00 AM EDT Office Visit [facility] ADULT DENTAL [address] [place] [address] Howard Vegaaris [address] [place] [address] documented as of this encounter Visit Diagnoses Not on filedocumented in this encounter Additional Health Concerns Assessment Noted Time PHQ-9 Depression Total Score: 6 05/28/19 23 9:06 AM EDT documented as of this encounter Care Teams Assistant Teaching Professor Relationship Specialty Start Date End Date Alfonso Cuello AGNP PCP - General Family Medicine 11/16/21 10/27/22 Sarah Sargent FNP [address] [place] [address] PCP - General Family Medicine 10/28/22 02/09/23 Myla Subramanian MD [address] [place] [address] PCP - General Internal Medicine 02/10/23 documented as of this encounter
--- OUTSIDE RECORDS SUMMARY | 2024-06-12 10:21 | XMS_ITS | Encounter Summary ---
Author Organization [employer] Address [address] [facility] [address] 7t [place] [address] Care Team Providers Care Investment Executive Name Role Phone Myla Subramanian MD Primary Care Provide r Reason for Visit * Reason Comments Med Refill Encounter Details Date Type Department Care Team ([facility] Contact Info) Description 09/01/[address] [facility] MEDICINE [address] [place] [address] Myla Subramanian MD [address] [place], [place] [phone] Abscess Social History Tobacco Use Types Packs/Day [...] 11/15/2024 10:00 AM EDT Office Visit [facility] ADULT DENTAL [address] [place] [address] Gary, Ruth [address] [place] [address] documented as of this encounter Visit Diagnoses Diagnosis Abscess Cellulitis and abscess of unspecified site documented in this encounter Additional Health Concerns Assessment Noted Time PHQ-9 Depression Total Score: 8 07/13/19 24 10:06 AM EDT documented as of this encounter Care Teams Investment Executive Relationship Specialty Start Date End Date Myla Subramanian MD [address] [place] [address] PCP - General Internal Medicine 02/10/23 documented as of this encounter
--- OUTSIDE RECORDS SUMMARY | 2024-06-12 10:21 | XMS_ITS | Clinical Summary ---
Author Organization [employer] Address [address] [facility] 7t [place] [address] Care Team Providers Care Wireless Telegrapher Name Role Phone Myla Subramanian MD Primary Care Provide r Allergies Active Allergy Reactions Criticality Noted Date Comments Aspirin 01/13/2022 Penicillin G 07/20/2020 Other reaction(s): Hives / Skin Rash Squid Oil 04/10/2023 Medications Blood Pressure Monitor kitIndications:Es sential hypertension Use as directed 3x/week 1 kit 4 Active atorvastatin (Lipitor) 80 MG tabletIndications :Essential hypertension Take 1 tablet (80 mg) by mouth Once per day. 30 tablet 2 4 Active gabapentin (Neurontin) 300 MG capsuleIndication s:Pain Take 1 capsule by mouth at bedtime 90 capsule 1 4 Active hydrocortisone 1 % creamIndications: Allergic rash present on examination APPLY TO THE AFFECTED AREA(S) TOPICALLY TWICE DAILY 28 g 4 4 Active Emollient (CeraVe Moisturizing) creamIndications: Atopic dermatitis, unspecified type Apply 1 each topically Every 4-6 hours as needed (For itching). 340 g 11 4 Active diphenhydrAMINE (Banophen) 25 MG capsuleIndication s:Other atopic dermatitis Take 1 capsule (25 mg) by mouth every 8 (eight) hours if needed for itching for up to 20 days. 30 capsule 1 4 Active cetirizine (ZyrTEC) 10 MG tabletIndications :Atopic dermatitis, unspecified type TAKE 1 TABLET BY MOUTH EVERY DAY 90 tablet 1 5 Active lisinopril-hydroC HLOROthiazide 20-12.5 MG tabletIndications :Essential hypertension TAKE 1 TABLET BY MOUTH EVERY DAY IN THE MORNING 90 tablet 1 5 Active triamcinolone (Kenalog) 0.1 % creamIndications: Other atopic dermatitis APPLY TOPICALLY TO AFFECTED AREA(S) OF ARMS AND TRUNK TWICE DAILY DIRECTED FOR FOURTEEN DAYS 45 g 1 5 Active triamcinolone (Kenalog) 0.1 % creamIndications: Chronic eczema Apply topically if needed in the morning and at bedtime (pain and swelling). 80 g 3 5 Active Diclofenac Sodium (Voltaren) 1 % gelIndications:Kiya mbar back pain,Chronic right shoulder pain Apply 2 g topically 3 times daily. 100 g 11 5 Active acetaminophen (Tylenol Extra Strength) 500 MG tabletIndications :Lumbar back pain Take 1 tablet (500 mg) by mouth every 6 (six) hours if needed for mild pain for up to 15 days. 30 tablet 1 5 05/29/19 25 Active Problems Problem Noted Date Diagnosed Date Gingival recession, localized 05/09/2024 Other chest pain 02/12/2024 Assessment & Plan (02/12/2024 4:17 PM EST): Cardiology referral Other atopic dermatitis 02/12/2024 Assessment & Plan (02/12/2024 4:17 PM EST): Triamcinolone and Banophen prescribed I will refer him to allergy and supplier specialist Gastroesophageal reflux disease without esophagi tis [...] If problem persist or worse come to [facility] possible referral to surgery Cognitive impairment 07/13/2023 Assessment & Plan (07/13/2023 11:03 AM EDT): I will call and find out why his COAGULATOR hours where reduced Dental plaque 06/20/2023 Teeth [...] has a colonoscopy scheduled for 09/14 at [facility]. Assessment & Plan (05/27/2022 9:43 AM EDT): Previous referrals: Audiology: 05/16/22 last appointment, doesn't remember name of audiology next appointment june 15. Gastro: waiting on appointment, [facility] PT: waiting on appointment, [facility] Optometry: Never got a call, new referral [...] Description 05/13/2024 10:00 AM EDT Office Visit [facility] MEDICINE [address] [place] [address] Myla Subramanian MD Essential hypertension (Primary Dx); Lumbar back pain; Chronic right shoulder pain; Chronic bilateral low back pain, unspecified whether sciatica present 05/13/2024 Travel 05/09/2024 2:00 PM EDT Office Visit [facility] ADULT DENTAL [address] [place], [place] [phone] Ruth Vega Gingival recession, localized (Primary Dx); Dental calculus; Teeth missing 05/02/2024 Patient Outreach [facility] MEDICINE [address] [place] [address] Myla Subramanian MD Pre-visit Planning (SDOH screening negative and tobacco screening negative) 04/30/2024 9:15 AM EDT Office Visit [facility] MED & PEDS [address] [place], [place] [phone] Ralph Black MD Chronic eczema (Primary Dx) 04/30/2024 Travel 04/26/2024 Population Health Risk Score [facility] () Department [address] [place] [phone] Provider, Population Health Generic 04/23/2024 Refill [facility] MEDICINE [address] [place] [address] Name, MD Seng Other atopic dermatitis 04/07/2024 Refill [facility] MEDICINE [address] [place] [address] Myla Subramanian MD Essential hypertension 03/25/2024 Refill [facility] [address] [place] [address] Suzanne Ma MD Atopic dermatitis, unspecified type from Last 3 Months Immunizations Name Administration [...] Description 11/15/2024 10:00 AM EDT Office Visit [facility] ADULT DENTAL [address] [place] [address] Ruth Vega [address] [place] [address] Health Maintenance Due Date Last Done Comments [...] Cancer Screening 10/22/2026 FIT DNA/Cologuard 10/22/2026 10/23/2023 Dental X-Ray: Full Mouth 05/11/2027 05/09/2024, 11/14 Lipid Panel 05/14/2029 05/14/2024, 03/16, 11/24/2021, Additional history exists DTaP/Tdap/Td Vaccines (2 - [...] Procedure Name Priority Date/Time Associated Diagnosis Comments BASIC METABOLIC PANEL Routine 05/14/2024 8:12 AM EDT Essential hypertension LIPID PANEL, STANDARD Routine 05/14/2024 8:12 AM EDT Essential hypertension COMPREHENSIVE PERIODONTAL EVALUATION - NEW OR ESTABLISHED [...] 9:31 AM EDT Routine adult health maintenance HIV 1/2 ANTIGEN/ANTIBODY, FOURTH GENERATION W/RFL Routine 08/04/2021 10:05 AM EDT from Last 3 Months or Most Recently Relevant to Health Maintenance Results * (ABNORMAL) Lipid Panel, Standard (05/14/2024 8:12 AM EDT) Triglycerides 66 <150 mg/dL [facility] Comment:Desirable Triglyceri de: less than 150 mg/dLBorderline High Triglyceride 150-199 mg/dLHigh Triglyceride: 200-499 mg/dLVery High Triglyceride: greater than or equal to 5OO mg/dL Cholesterol 199 <200 mg/dL [facility] Comment:Desirable Cholestero l: less than 200 mg/dLBorderline High Cholesterol: 200-239 mg/dLHigh Cholesterol: greater than 239 mg/dL LDL Cholesterol Calculated 115(H) <100 mg/dL [facility] Comment:Desirable LDL: less than 100 mg/dLNear Optimal/Above Optimal LDL: 110- 129 mg/dLBorderline High LDL: 130-159 mg/dLHigh LDL: 160-189 mg/dLVery High LDL: greater than or equal to 190 mg/dL HDL Cholesterol 71 >40 mg/dL [facility] Comment:Desirable HDL: great er than 40 mg/dL Note: This HDL assay may give artificially low results in patients with liver disease. Blood Venous blood specimen / Unknown 05/14/2024 8:12 AM EDT 05/14/2024 11:21 AM EDT us Myla Sena MD LAB BLOOD ORDERABLES Final Result [facility] [address] [place] [address] [phone] * (ABNORMAL) Basic Metabolic Panel (05/14/2024 8:12 AM EDT) Sodium 139 135 - 145 mmol/L [facility] Potassium 4.4 3.3 - 5.1 mmol/L [facility] Chloride 103 96 - 108 mmol/L [facility] Carbon Dioxide 29 22 - 29 mmol/L [facility] Anion Gap 11(L) 12 - 20 [facility] Urea Nitrogen (BUN) 20(H) 9 - 16 mg/dL [facility] Creatinine, Serum 0.87 0.5 - 1.4 mg/dL [facility] Estimated Glomerular Filt Rate >60 [facility] Comment:Chronic Kidney Disea se: Estimated GFR < 60 mL/min/1.16j5Kaebku Kidney Disease: Estimated GFR < 15 mL/min/1.73m2 Glucose 99 60 - 115 mg/dL [facility] Calcium 9.8 8.4 - 10.2 mg/dL [facility] Blood Venous blood specimen / Unknown 05/14/2024 8:12 AM EDT 05/14/2024 11:21 AM EDT Myla Sena MD LAB BLOOD ORDERABLES Final Result [facility] [address] [place] [phone] * Cologuard?? colon cancer screening (10/23/2023 7:07 AM EDT) Cologuard Result Negative Negative 10/26/19 24 10:15 PM EDT [facility] (CLIA #:[id number]) Comment: NEGATIVE TEST RESULT. A negative Cologuard [...] cancer. ??Following a negative Cologuard result, the [place] [employer] Society and U.S. Multi-Society Task Force screening guidelines recommend a Cologuard re-screening interval of 3 years. References: [place] [employer] Guideline for Colorectal Cancer Screening: https://www.cancer.org/cancer/muofx-dbsipy-psntie/vkpuktonu-nvixbgabh-flezbkr/ac s-rec ommendations.html.; José DK, Bryce CR, Ashley BhaktaK, Colorectal Cancer Screening: Recommendations for Physicians and Patients from the U.S. Multi-Society Task Force on Colorectal Cancer Screening , Am J Gastroenterology 2017; 112:6935-8953. TEST DESCRIPTION: Composite algorithmic analysis of stool [...] (Nelia Huang al, N Engl J Med 2014;370(14):0693-2004.) Cologuard may produce a false negative or false positive result (no colorectal cancer or precancerous polyp present at colonoscopy follow up). A negative Cologuard test result does not guarantee the absence of CRC or advanced adenoma (pre-cancer). The current Cologuard screening interval is every 3 years. ([place] [employer] and U.S. Multi-Society Task Force). Cologuard performance data in a 10,000 patient pivotal study using colonoscopy as the reference method can be accessed at the following location: www.LightCyber.BizXchange/results. Additional description of the Cologuard test process, warnings and precautions can be found at www.cologAmaranth Medicalrd.com. Stool specimen (specimen) 10/23/2023 7:07 AM EDT 10/24/2023 2:06 PM EDT Myla Sena MD LAB MOLECULAR DIAGNOS TICS ORDERABLES Final Result [facility] (CLIA #:[id number]) [place] [address], [place] [phone] * (ABNORMAL) POCT HGB A1C (04/10/2023 3:11 PM EST) Pathologist [facility] Hemoglobin A1C 6.3(A) 4.0 - 6.0 % QC Media Lot # [id number] Lot# Expiration Date Blood 04/10/2023 3:11 PM EST Myla Sena MD POINT OF CARE TEST EN TER/EDIT ORDERABLES Final Result * Hepatitis C Antibody with Reflex to HCV, RNA, Quantitative, Real-Time PCR (07/22/2022 9:31 AM EDT) Hepatitis C Antibody NON-REACT DEONDRE NON-REACT DEONDRE [facility] Index 0.07 <1.00 [facility] Comment: HCV antibody was non-reactive. There is no laboratory evidence of HCV infection. In most cases, no further action is required. However, if recent HCV exposure is suspected, a test for HCV RNA (test code 62687) is suggested. For additional information please refer to http://education.Qardio.BizXchange/faq/TST54l1 (This link is being provided for informational/ educational purposes only.) Blood Venous blood specimen / Unknown 07/22/2022 9:31 AM EDT 07/22/2022 9:31 AM EDT Narrative [facility] - 07/23/2022 12:54 AM EDT FASTING:NO FASTING: NO us Alfonso Cuello AGNP LAB BLOOD ORDERABLES Final Res ult Performing Organization Address [facility] Co de Phone Number [facility] [address], [place] [address] [facility] [address] [place] [address] * HIV 1/2 ANTIGEN/ANTIBODY,FOURTH GENERATION W/RFL (08/04/2021 10:05 AM EDT) [facility] HIV-1/2 ANTIGEN AND ANTIBODIES, 4TH GENERATION W/ REFLEX NON-REACT DEONDRE NON-REACT DEONDRE [facility] Comment: HIV-1 antigen and HIV-1/HIV-2 [...] ? For additional information please refer to http://education.Qardio.BizXchange/faq/UHP133 (This link is being provided for informational/ educational purposes only.) ? The performance of this assay has not been clinically validated in patients less than 2 years old. ?? 08/04/2021 10:0 5 AM EDT us Tresa Paz EP SPECIALIST LAB BLOOD ORDERABLES Final Resu lt [facility] [address] from Last 3 Months or Most Recently Relevant to Health Maintenance Insurance [facility] STANDARD MEDICARE DENTAL-[facility] MEDICAID STAND ADULT [place] [id number] Care Teams Wireless Telegrapher Relationship Specialty Start Date End Date Myla Subramanian MD [address] [place] [address] [place] [address] PCP - General Internal Medicine 02/10/23
--- OUTSIDE RECORDS SUMMARY | 2024-06-12 10:21 | XMS_ITS | Encounter Summary ---
Author Organization [facility] Address [address] [facility] 7t [place] [address] Care Team Providers Care Pinion Sorter Name Role Phone Alfonso Cuello AGNLogan Primary Care Provider Unavail Sarah Suárez Primary Care Provider [phone] Myla Subramanian MD Primary Care Provide r Encounter Details Date Type Department Care Team (Late st Contact Info) Description 01/05/2022 Abstract [facility] ADULT DENTAL [address] [place] [address] Dental, Provider, DDS Social History Tobacco Use [...] Description 11/15/2024 10:00 AM EDT Office Visit [facility] ADULT DENTAL [address] [place] [address] Gary, Ruth [address] [place] [address] documented as of this encounter Procedures Procedure [...] on filedocumented in this encounter Care Teams Pinion Sorter Relationship Specialty Start Date End Date Alfonso Cuello AGNP PCP - General Family Medicine 11/16/21 10/27/22 Sarah Sargent FNP [address] [place] [address] PCP - General Family Medicine 10/28/22 02/09/23 Myla Subramanian MD [address] [place] [address] PCP - General Internal Medicine 02/10/23 documented as of this encounter
--- OUTSIDE RECORDS SUMMARY | 2024-06-12 10:21 | XMS_ITS | Encounter Summary ---
Author Organization [employer] Address [address] [facility] [address] 7t [place] [address] Care Team Providers Care Avionics Supervisor Name Role Phone Myla Subramanian MD Primary Care Provide r Reason for Visit * Reason Comments Med Refill Encounter Details Date Type Department Care Team ([facility] st Contact Info) Description 07/13/2023 Refill [facility] MEDICINE [address] [place] [address] Sarah Sargent FNP [address] [place] [address] Essential hypertension Social History Tobacco Use Types [...] 11/15/2024 10:00 AM EDT Office Visit [facility] ADULT DENTAL [address] [place] [address] Gary, Ruth [address] [place] [address] documented as of this encounter Visit Diagnoses Diagnosis Essential hypertension Unspecified essential hypertension documented in this encounter Additional Health Concerns Assessment Noted Time PHQ-9 Depression Total Score: 8 07/13/19 24 10:06 AM EDT documented as of this encounter Care Teams Avionics Supervisor Relationship Specialty Start Date End Date Myla Subramanian MD [address] [place] [address] PCP - General Internal Medicine 02/10/23 documented as of this encounter
--- OUTSIDE RECORDS SUMMARY | 2024-06-12 10:21 | XMS_ITS | Encounter Summary ---
Author Organization [facility] Address [address] [facility] [address]t [place] [address] Care Team Providers Care Access Representative Name Role Phone Alfonso Cuelol AGNLogan Primary Care Provider Unavail Sarah Suárez Primary Care Provider [phone] Myla Subramanian MD Primary Care Provide r Encounter Details Date Type Department Care Team ([facility] Contact Info) Description 04/15/2022 Abstract [facility] ADULT DENTAL [address] [place] [address] Rowena Villatoro DDS [address] [place] [address] Social History Tobacco Use Types Packs/Day Years [...] Upcoming Encounters Date Type Department Care Team ([facility] Contact Info) Description 11/15/2024 10:00 AM EDT Office Visit [facility] ADULT DENTAL [address] [place] [address] Gary, Ruth [address] [place] [address] documented as of this encounter Visit Diagnoses Not on filedocumented in this encounter Care Teams Access Representative Relationship Specialty Start Date End Date Alfonso Cuello AGNP PCP - General Family Medicine 11/16/21 10/27/22 Sarah Sargent FNP [address] [place], [place] [phone] PCP - General Family Medicine 10/28/22 02/09/23 Myla Subramanian MD [address] [place] [phone] PCP - General Internal Medicine 02/10/23 documented as of this encounter
== END 2024-06-12 09:36 | disposition home or self-care (01) ==
LOC: HO.HAP 09:35
PROVIDERS: Visit Provider Internal Medicine
DX: Z46.1 Encounter for fitting and adjustment of hearing aid (principal); H90.3 Sensorineural hearing loss, bilateral
CPT/HCPCS: V5266

== ENCOUNTER 2024-07-02 10:04 | Outpatient (AMB) | payer MEDICARE, MEDICAID, SELFPAY ==
--- NOTE | 2024-07-02 10:08 | MHC.OFFVIS ---
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 Intake Note: New patient for chest pain Painter Aircraft Required: Yes Painter Aircraft Services: Painter Aircraft Present Painter Aircraft Name: [facility] [place] Drop Wire Aliner: Drop Wire Aliner Present Accompanied by: rn bone marrow transplant Allergies Penicillins Allergy (Unknown, Verified 01/05/21 14:09) N/A Medication List - Last Reconciled 07/02/24 by Umberto Barbosa MD acetaminophen 325 mg PO QID PRN atorvastatin 10 mg PO BEDTIME gabapentin 300 mg PO BEDTIME lisinopril-hydrochlorothiazide 10-12.5 mg 1 tab PO DAILY HPI Comments Details: Bereket was referred here for chest pain. History was obtained with help of a certified turret lathe operator in person. Patient was referred here because of chest pain. Patient is very vague historian. Add during the interview continued to have says that he has upper left quadrant abdominal pain. Eight to draw his attention back to the chest pain for which she was referred. He has history of hypertension hyperlipidemia which says has been well controlled. Patient says the chest pain happens mostly when he is sleeping. He says this is not severe. He says this feels like mild sharp chest pain which wakes him up some sleep but last only for a minute. He then takes his pain medications symptoms go away. He said he exercise regularly and does not have any exertional chest pain. He denies any shortness of breath, orthopnea, PND. No prolonged palpitation irregular heartbeat. Takes all his medications. He currently does not smoke but used to smoke in the past. [facility] Medical History (Updated 07/02/24 @ 10:43 by Umberto Barbosa MD) Personal history of nicotine dependence Sensorineural hearing loss (SNHL) of both ears Chronic pain syndrome Degeneration, intervertebral disc, cervical High blood pressure Muscle pain High cholesterol Social History Patient Tobacco Use Status: Former Tobacco user Current occupational status: disabled Current occupation: rt hand Review of Systems Const Denies chills, Denies daytime sleepiness, Denies fatigue, Denies fever(s), Denies frequent falls, Denies poor appetite, Denies snoring, Denies stops breathing during sleep, Denies weakness, Denies weight gain and Denies weight loss Eyes Denies loss of vision ENT Denies dizziness and Denies hearing loss Card Denies chest pain, Denies claudication, Denies leg edema, Denies lightheadedness, Denies palpitations, Denies dyspnea, Denies dyspnea on exertion and Denies orthopnea Resp Denies cough, Denies excessive phlegm production, Denies dyspnea, Denies dyspnea on exertion, Denies snoring and Denies wheezing GI Denies abdominal pain, Denies hematochezia, Denies change in bowel habits, Denies nausea and Denies vomiting Denies dysuria and Denies urinary frequency Musc Denies arthralgias, Denies muscle weakness, Denies numbness and Denies other (frequent falls) Skin/Breast Denies nail changes and Denies rash Neuro Denies Abnormal speech present, Denies dizziness, Denies frequent falls, Denies loss of vision, Denies memory loss, Denies numbness and Denies weakness Psych Denies depression and Denies memory loss Endo Denies fatigue and Denies palpitations Felipe/Lymph Reports easy bruising and Reports other (anemia) Aller/Immun Denies wheezing Physical Exam Vital Signs: Last Vital Signs Pulse 74 07/02/24 10:11 BP 120/80 07/02/24 10:11 BMI result Body Mass Index 19.0 Const General: cooperative, comfortable, no acute distress, alert, awake and Physically active Nutritional Appearance: thin Orientation/consciousness: patient oriented x3 Limitations: no limitations HEENT Head: Yes normocephalic and Yes atraumatic Neck Neck: Yes trachea midline, Yes supple and Yes no JVD Carotids: no bruits Resp Effort & Inspection: normal respiratory effort Auscultation: clear to auscultation bilaterally and diminished lung sounds Cardio Jugular venous distension: no JVD Palpation: normal PMI Rate: regular rate Rhythm: regular rhythm Heart sounds: S1 normal heart sound present, S2 normal heart sound present, no click, no gallops, no murmurs and no rubs GI Auscultation: normal bowel sounds Skin General skin exam: no rashes or lesions noted Neuro General: patient oriented x3 and no focal motor deficits Speech: No Abnormal speech present Extrem General: Yes no clubbing, cyanosis or edema Psych Appearance: grossly normal Office Procedures EKG Details: EKG shows normal sinus rhythm with rightward axis otherwise normal EKG. 13792-[id number], Complete Assessment & Plan Assessment & Plan (1) Non-cardiac chest pain: Code(s): R07.89 - Other chest pain Plan: Patient has chest pain which appears to be noncardiac in nature. Happens mostly at rest is sharp in nature and last for less than a minute in his relieved by pain medications. He has never had any pain with exertion. Discussed with him but with the findings. Most likely related to his chronic pain syndrome. Discussed with him about the same. He understands. If pattern of pain changes as he has multiple risk factors will need further investigation at this point time does not require any further investigation for his chest pain. (2) High blood pressure: Code(s): I10 - Essential (primary) hypertension Category: Medical Plan: High blood pressure which is currently well optimized. Advised to monitor blood pressure at home maintain a log. Goal blood pressure less than 130/84. Low-salt diet was discussed. Stress mitigation strategies was discussed. Continue current therapy. His lipids last checked in May were not well optimized on current atorvastatin therapy. Consider increasing atorvastatin therapy to 20 mg daily. Can consider coronary calcium score if patient is interested to assess for coronary atherosclerosis which can guide further treatment. Will follow up in the clinic if need be. Coding Level of Care Code New Pt Level 4 (49283) Complex EM visit Add On G2211 Diagnoses Non-cardiac chest pain R07.89 High blood pressure I10 CPT Codes EKG - CPT: 32410-[id number], Complete ([id number])
[2024-07-02 10:11] VITALS: BP 120/80; PULSE 74; BMI 19.0
--- OUTSIDE RECORDS SUMMARY | 2024-07-02 11:19 | XMS_ITS | Encounter Summary ---
Author Organization [employer] Address [address] [place] [address] Care Team Providers Care Senior It Business Analyst Name Role Phone Myla Subramanian MD Primary Care Provide r Reason for Visit * Reason Comments Med Refill Encounter Details Date Type Department Care Team ([facility] Contact Info) Description 09/01/2023 Refill [facility] MEDICINE [address] [place], [place] [phone] Myla Subramanian MD [address] [place], [place] [phone] Abscess Social History Tobacco Use Types Packs/Day [...] Description 11/15/2024 10:00 AM EDT Office Visit [facility] ADULT DENTAL [address] [place] [address] Gary, Ruth [address] [place] [address] documented as of this encounter Visit Diagnoses Diagnosis Abscess Cellulitis and abscess of unspecified site documented in this encounter Additional Health Concerns Assessment Noted Time PHQ-9 Depression Total Score: 8 07/13/19 24 10:06 AM EDT documented as of this encounter Care Teams Senior It Business Analyst Relationship Specialty Start Date End Date Myla Subramanian MD [address] [place] [address] PCP - General Internal Medicine 02/10/23 documented as of this encounter
--- OUTSIDE RECORDS SUMMARY | 2024-07-02 11:19 | XMS_ITS | Encounter Summary ---
Author Organization [employer] Address [address] [place] [address] Care Team Providers Care [employer] Principal Name Role Phone Myla Subramanian MD Primary Care Provide r Reason for Visit * Reason Comments Med Refill Encounter Details Date Type Department Care Team ([facility] Contact Info) Description 07/13/2023 Refill [facility] [address] [place] [address] Sarah Sargent FNP [address] [place] [address] Essential hypertension Social History Tobacco Use Types [...] AM EDT documented as of this encounter Functional Status * Over the past 2 weeks, how often have you been bothered by any of the following problems? Question Answer Date of Assessment Author Patient Health Questionnaire -2 Score 2 07/13/2023 10:06 AM EDT Haim Collier MA * If you checked off any problems on this questionnaire so far, Question Answer Date of Assessment Author How difficult have these problems made it for you to do your work, take care of things at home, or get along with other people? Not difficult at all 07/13/2023 10:06 AM CELESTET Haim Collier MA * Over the last 2 weeks, how often have you been bothered by any of the following problems? Question Answer Date of Assessment Author Feeling nervous, anxious, or on edge 1 07/13/2023 10:06 AM CELESTET Haim Collier MA Not being able to stop or co ntrol worrying 0 07/13/2023 10:06 AM Haim Francis MA Worrying too much about diff erent things 1 07/13/2023 10:06 AM CELESTET Haim Collier [place] Trouble relaxing 1 07/13/2023 10:06 AM CELESTET Haim Collier [place] Being so restless that it is hard to sit still 0 07/13/2023 10:06 AM Haim Francis MA Becoming easily annoyed or irritable 1 07/13/2023 10:06 AM CELESTET Haim Collier MA Feeling afraid as if somethi ng awful might happen 0 07/13/2023 10:06 AM CELESTET Haim Collier MA HUGO-7 Total Score 4 07/13/2023 10:06 AM CELESTET Haim Collier MA * Over the past 2 weeks, how often have you been bothered by any of the following problems? Question Answer Date of Assessment Author Little interest or pleasure in doing things Several days 07/13/2023 10:06 AM CELESTET Aida Collier MA Feeling down, depressed, or hopeless Several days 07/13/2023 10:06 AM EDT Haim Collier MA Trouble falling or staying asleep, or sleeping too much Nearly every day 07/13/2023 10:06 AM CELESTET Haim Collier MA Feeling tired or having little energy Several days 07/13/2023 10:06 AM CELESTET Haim Collier [place] Poor appetite or overeating Several days 07/13/2023 10:06 AM CELESTET Haim Collier MA Feeling bad about yourself - or that you are a failure or have let yourself or your family down Not at all 07/13/2023 10:06 AM CELESTET Haim Collier MA Trouble concentrating on things, such as reading the newspaper or watching television Not at all 07/13/2023 10:06 AM CELESTET Haim Collier MA Moving or speaking so slowly that other people could have noticed? Or the opposite - being so fidgety or restless that you have been moving around a lot more than usual. Several days 07/13/2023 10:06 AM Haim Francis MA Thoughts that you would be better off or hurting yourself in some way Not at all 07/13/2023 10:06 AM Haim Francis MA Patient Health Questionnaire-9 Score 8 07/13/2023 10:06 AM CELESTET Wendi Collier MA documented as of this encounter Plan of Treatment Upcoming Encounters Date Type Department Care Team (Late st Contact Info) Description 11/15/2024 10:00 AM EDT Office Visit [facility] ADULT DENTAL [address] [place] [address] Ruth Vega [address] [place] [address] documented as of this encounter Visit Diagnoses Diagnosis Essential hypertension Unspecified essential hypertension documented in this encounter Additional Health Concerns Assessment Noted Time PHQ-9 Depression Total Score: 8 07/13/19 24 10:06 AM EDT documented as of this encounter Care Teams Elementary [employer] Principal Relationship Specialty Start Date End Date Myla Subramanian MD [address] [place] [address] PCP - General Internal Medicine 02/10/23 documented as of this encounter
--- OUTSIDE RECORDS SUMMARY | 2024-07-02 11:19 | XMS_ITS | Encounter Summary ---
Author Organization [employer] [facility] Address [address] [facility] [address] [place] [address] Care Team Providers Care Auto Body Estimator Name Role Phone Alfonso Cuello AGNLogan Primary Care Provider Unavail Sarah Suárez Primary Care Provider [phone] Myla Subramanian MD Primary Care Provide r Encounter Details Date Type Department Care Team (Late st Contact Info) Description 01/05/2022 Abstract [facility] ADULT DENTAL [address] [place] [address] Dental, Provider, DDS Social History Tobacco Use [...] 11/15/2024 10:00 AM EDT Office Visit [facility] ADULT DENTAL [address] [place] [address] Gary, Ruth [address] [place] [address] documented as of this encounter Procedures Procedure [...] on filedocumented in this encounter Care Teams Auto Body Estimator Relationship Specialty Start Date End Date Alfonso Cuello AGNP PCP - General Family Medicine 11/16/21 10/27/22 Sarah Sargent FNP [address] [place] [address] PCP - General Family Medicine 10/28/22 02/09/23 Myla Subramanian MD [address] [place] [address] PCP - General Internal Medicine 02/10/23 documented as of this encounter
--- OUTSIDE RECORDS SUMMARY | 2024-07-02 11:19 | XMS_ITS | Clinical Summary ---
Author Organization [employer] Address [address] [place] [address] Care Team Providers Care Pyroglazer Name Role Phone Myla Subramanian MD Primary [...] times daily. 100 g 11 5 Active Active Problems Problem Noted Date Diagnosed Date Gingival recession, localized 05/09/2024 Other chest pain 02/12/2024 Assessment & Plan (02/12/2024 4:17 PM EST): Cardiology referral Other atopic dermatitis 02/12/2024 Assessment & Plan (02/12/2024 4:17 PM EST): Triamcinolone and Banophen prescribed I will refer him to allergy and stars specialist Gastroesophageal reflux disease without esophagi tis [...] If problem persist or worse come to 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 Assessment & Plan (05/27/2022 9:43 AM EDT): Previous referrals: Audiology: 05/16/22 last appointment, doesn't remember name of audiology next appointment june 15. Gastro: waiting on appointment[place] [facility] [place]: [place] on appointment[place] [facility] Optometry: Never got a [...] Description 05/13/2024 10:00 AM EDT Office Visit [facility] MEDICINE [address] [place] [phone] Myla Subramanian MD Essential hypertension (Primary Dx); Lumbar back pain; Chronic right shoulder pain; Chronic bilateral low back pain, unspecified whether sciatica present 05/13/2024 Travel 05/09/2024 2:00 PM EDT Office Visit [facility] ADULT DENTAL [address] [place] [address] Ruth Vega Gingival recession, localized (Primary Dx); Dental calculus; Teeth missing 05/02/2024 Patient Outreach [facility] [address] [place] [address] Myla Subramanian MD Pre-visit Planning (SDOH screening negative and tobacco screening negative) 04/30/2024 9:15 AM EDT Office Visit [facility] PEDS [address] [place] [address] Ralph Black MD Chronic eczema (Primary Dx) 04/30/2024 Travel 04/26/2024 Population Health Risk Score [facility] ([facility] Department [address] [phone] Provider, Population Health Generic 04/23/2024 Refill [facility] [address] [place] [address] Name, MD Seng Other atopic dermatitis 04/07/2024 Refill [facility] [address] [place] [address] Myla Subramanian MD Essential hypertension from Last 3 Months Immunizations Immunization Administration Dates Next Due Influenza Injectable Quadriv [...] [facility] ADULT DENTAL [address] [place] [address] Gary, Ruth [address] [place] [address] Health Maintenance Due Date Last Done Comments Anal Pap 1960 CT Colonography 1960 Colonoscopy 1960 FIT 1960 FOBT 1960 Sigmoidoscopy 1960 Disability Screening 1960 Hepatitis A Vaccines (1 of 2 - Risk 2-dose series) 02/04/1979 Pneumococcal Vaccine: 50+ Years (1 of 1 - PCV) 02/04/2010 Hepatitis B Vaccines (1 of 3 - Risk 3-dose series) 2020 COVID-19 Vaccine ( season) 2023 03/03/2022, 01/28/2021, 07/17/2020, Additional history exists Diabetes: Hemoglobin A1C 04/10/2024 024, 08/31/2022, 05/27/2022, Additional history exists Depression Screening 07/12/2024 07/13/2023, 07/13/19 Dental Oral Exam 11/10/2024 05/09/2024, , 02/23/2022 [...] patient's age to complete this topic Meningococcal B Vaccine Aged Out No l onger eligible based on patient's age to complete [...] 8:12 AM EDT) Triglycerides 66 <150 mg/dL [facility] Comment:Desirable Triglyceri de: less than 150 mg/dLBorderline High Triglyceride 150-199 mg/dLHigh Triglyceride: 200-499 mg/dLVery High Triglyceride: greater than or equal to 5OO mg/dL Cholesterol 199 <200 mg/dL [facility] Comment:Desirable Cholestero l: less than 200 mg/dLBorderline High Cholesterol: 200-239 mg/dLHigh Cholesterol: greater than 239 mg/dL LDL Cholesterol Calculated 115(H) <100 mg/dL [facility] Comment:Desirable LDL: less than 100 mg/dLNear Optimal/Above Optimal LDL: 110- 129 mg/dLBorderline High LDL: 130-159 mg/dLHigh LDL: 160-189 mg/dLVery High LDL: greater than or equal to 190 mg/dL HDL Cholesterol 71 >40 mg/dL [facility] Comment:Desirable HDL: great er than 40 mg/dL Note: This HDL assay may give artificially low results in patients with liver disease. Blood Venous blood specimen / Unknown 05/14/2024 8:12 AM EDT 05/14/2024 11:21 AM EDT us Myla Sena MD LAB BLOOD ORDERABLES Final Result [facility] [address] [place] [phone] * (ABNORMAL) Basic Metabolic Panel (05/14/2024 8:12 AM EDT) Sodium 139 135 - 145 mmol/L [facility] Potassium 4.4 3.3 - 5.1 mmol/L [facility] Chloride 103 96 - 108 mmol/L [facility] Carbon Dioxide 29 22 - 29 mmol/L [facility] Anion Gap 11(L) 12 - 20 [facility] Urea Nitrogen (BUN) 20(H) 9 - 16 mg/dL [facility] Creatinine, Serum 0.87 0.5 - 1.4 mg/dL [facility] Estimated Glomerular Filt Rate >60 [facility] Comment:Chronic Kidney Disea se: Estimated GFR < 60 mL/min/1.79l7Fbotxm Kidney Disease: Estimated GFR < 15 mL/min/1.73m2 Glucose 99 60 - 115 mg/dL [facility] Calcium 9.8 8.4 - 10.2 mg/dL [facility] Blood Venous blood specimen / Unknown 05/14/2024 8:12 AM EDT 05/14/2024 11:21 AM EDT Myla Sena MD LAB BLOOD ORDERABLES Final Result [facility] [address] [place] [phone] [phone] * Cologuard?? colon cancer screening (10/23/2023 7:07 AM EDT) Cologuard Result Negative Negative 10/26/19 10:15 PM EDT [facility] (CLIA #:[id number]) Comment: NEGATIVE TEST RESULT. A negative Cologuard [...] cancer. ??Following a negative Cologuard result, the [place] Cancer Society and U.S. Multi-Society Task Force screening guidelines recommend a Cologuard re-screening interval of 3 years. References: [place] [employer] Guideline for Colorectal Cancer Screening: https://www.cancer.org/cancer/gboed-pdaxms-vonzcv/dzttyikix-kpozwtndk-xkxlknv/ac s-rec ommendations.html.; José DAVENPORT, Bryce FRASER, Ashley BhaktaK, Colorectal Cancer Screening: Recommendations for Physicians and Patients from the U.S. Multi-Society Task Force on Colorectal Cancer Screening , Am J Gastroenterology 2017; 112:7287-5510. TEST DESCRIPTION: Composite algorithmic analysis of stool [...] Robin et al, N Engl J Med 2014;370(14):6418-2186.) Cologuard may produce a false negative or false positive result (no colorectal cancer or precancerous polyp present at colonoscopy follow up). A negative Cologuard test result does not guarantee the absence of CRC or advanced adenoma (pre-cancer). The current Cologuard screening interval is every 3 years. ([place] Cancer Society and U.S. Multi-Society Task Force). Cologuard performance data in a 10,000 patient pivotal study using colonoscopy as the reference method can be accessed at the following location: www.[employer].Stuffle/results. Additional description of the Cologuard test process, warnings and precautions can be found at www.colBL Healthcarerd.Stuffle. Stool specimen (specimen) 10/23/2023 7:07 AM EDT 10/24/2023 2:06 PM EDT Result [facility] Myla Sena MD LAB MOLECULAR DIAGNOS TICS ORDERABLES Final Result [facility] (CLIA #:[id number]) [place] [address], * (ABNORMAL) POCT HGB A1C (04/10/2023 3:11 PM EST) Hemoglobin A1C 6.3(A) 4.0 - 6.0 % QC Media Lot # [id number] Lot# Expiration Date Blood 04/10/2023 3:11 PM EST Result [facility] Myla Sena MD POINT OF CARE TEST EN TER/EDIT ORDERABLES Final Result * Hepatitis C Antibody with Reflex to HCV, RNA, Quantitative, Real-Time PCR (07/22/2022 9:31 AM EDT) Pathologist [facility] Hepatitis C Antibody NON-REACT DEONDRE NON-REACT DEONDRE [facility] [employer] [facility] Index 0.07 <1.00 [facility] Comment: HCV antibody was non-reactive. There is no laboratory evidence of HCV infection. In most cases, no further action is required. However, if recent HCV exposure is suspected, a test for HCV RNA (test code 90568) is suggested. For additional information please refer to http://education.Tiendeo.Stuffle/faq/EFM64w1 (This link is being provided for informational/ educational purposes only.) Blood Venous blood specimen / Unknown 07/22/2022 9:31 AM EDT 07/22/2022 9:31 AM EDT Narrative [facility] - 07/23/2022 12:54 AM EDT FASTING:NO FASTING: NO Alfonso Cuello AGNP LAB BLOOD ORDERABLES Final Res ult [facility] [address], [place] [address] [facility] [address] [place] [phone] * HIV 1/2 ANTIGEN/ANTIBODY,FOURTH GENERATION W/RFL (08/04/2021 10:05 AM EDT) [facility] HIV-1/2 ANTIGEN AND ANTIBODIES, 4TH GENERATION W/ REFLEX NON-REACT DEONDRE NON-REACT DEONDRE [facility] Comment: HIV-1 antigen and HIV-1/HIV-2 [...] ? For additional information please refer to http://education.Tiendeo.Stuffle/faq/CAM673 (This link is being provided for informational/ educational purposes only.) ? The performance of this assay has not been clinically validated in patients less than 2 years old. ?? 08/04/2021 10:0 5 AM EDT Tresa Paz MAINTENANCE ADVISOR LAB BLOOD ORDERABLES Final Resu lt [facility] [address] from Last 3 Months or Most Recently Relevant to Health Maintenance Insurance [address] [place] [address] [facility] MEDICARE [facility] MEDICAID [facility] ADULT Care Teams Pyroglazer Relationship Specialty Start Date End Date Myla Subramanian MD [address] [place] [address] PCP - General Internal Medicine 02/10/23
--- OUTSIDE RECORDS SUMMARY | 2024-07-02 11:19 | XMS_ITS | Encounter Summary ---
Author Organization [employer] [facility] Address [address] [facility] 7t [place] [address] Care Team Providers Care Qa Software Tester Name Role Phone Alfonso Cuello AGNLogan Primary Care Provider Unavail Sarah Suárez Primary Care Provider [phone] Myla Subramanian MD Primary Care Provide r Encounter Details Date Type Department Care Team ([facility] Contact Info) Description 04/15/2022 Abstract [facility] [address] [place] [address] Rowena Villatoro, DDS [address] [place] [address] Social History Tobacco Use Types Packs/Day Years [...] Upcoming Encounters Date Type Department Care Team ([facility] Contact Info) Description 11/15/2024 10:00 AM EDT Office Visit [facility] [address] [place] [address] Ruth Vega [address] [place] [address] documented as of this encounter Visit Diagnoses Not on filedocumented in this encounter Care Teams Qa Software Tester Relationship Specialty Start Date End Date Alfonso Cuello AGNP PCP - General Family Medicine 11/16/21 10/27/22 Sarah Sargent FNP [address] [place] [address] PCP - General Family Medicine 10/28/22 02/09/23 Myla Subramanian MD [address] [place] [phone] PCP - General Internal Medicine 02/10/23 documented as of this encounter
--- OUTSIDE RECORDS SUMMARY | 2024-07-02 11:19 | XMS_ITS | Encounter Summary ---
Author Organization [employer] Address [address] [facility] 7t [place] [address] Care Team Providers Care Gill Box Tender Name Role Phone Alfonso Cuello Primary Care Provider Unavail Sarah Suárez Primary Care Provider [phone] Myla Subramanian MD Primary Care Provide r Encounter Details Date Type Department Care Team (Late st Contact Info) Description 09/13/2022 Telephone [facility] [address] [place] [address] Alfonso Cuello AGNP Social History Tobacco Use [...] from Emerita Diego RN- Will forward to [facility] nurse to as I am currently working other areas at [facility]. Tc from [facility] requesting status on physician summary form. Pt is currently on hold for [facility] andform needs to be signed by PCP for pt services to be covered. Please contact [facility] at [phone] * Telephone Encounter - Mayra Dandre - 09/13/2022 12:39 PM EDT Tc from [facility] requesting status on physician summary form. Pt is currently on [facility] for [facility] andform needs to be signed by PCP for pt services to be covered. Please contact [facility] at [phone] documented in this encounter Plan of Treatment Upcoming Encounters Date Type Department Care Team (Late st Contact Info) Description 11/15/2024 10:00 AM EDT Office Visit [facility] [address] [place] [address] Ruth Vega [address] [place] [address] documented as of this encounter Visit Diagnoses Not on filedocumented in this encounter Additional Health Concerns Assessment Noted Time PHQ-9 Depression Total Score: 6 05/28/19 9:06 AM EDT documented as of this encounter Care Teams Gill Box Tender Relationship Specialty Start Date End Date Alfonso Cuello AGNP PCP - General Family Medicine 11/16/21 10/27/22 Sarah Sargent FNP [address] [place] [address] PCP - General Family Medicine 10/28/22 02/09/23 Myla Subramanian MD [address] [place] [address] PCP - General Internal Medicine 02/10/23 documented as of this encounter
--- OUTSIDE RECORDS SUMMARY | 2024-07-02 11:19 | XMS_ITS | Encounter Summary ---
Author Organization [employer] Address [address] [facility] 7t [place] [address] Care Team Providers Care Jewel Blocker And Sawyer Name Role Phone Myla Subramanian MD Primary Care Provide r Reason for Visit * Reason Onset Date Comments increase in HOME CARE GIVER hours 04/18/2023 Spoke with Uma at [facility] to discuss Patient request for a letter from Provider to increase his HOME CARE GIVER hours. Presently he has 9 hours per week. Uma stated that under [facility] program the maximum hours is 9 per week. If patient feels he needs more there needs to be a reason for the increase, patient saw PCP in March and did not mention that he needs more HOME CARE GIVER hours. Uma will contact patient to see if there is a need and if yes he could possibly be referred to [facility] their HOME CARE GIVER program. Encounter Details Date Type Department Care Team ([facility] st Contact Info) Description 04/18/2023 Telephone [facility] [address] [place], [place] [phone] Myla Subramanian MD [address] [place], [place] [phone] increase in HOME CARE GIVER hours (Spoke with Uma at [facility] to discuss Patient request for a letter from Provider to increase his HOME CARE GIVER hours. Presently he has 9 hours per week. Uma stated that under [facility] program the maximum hours is 9 per week. If patient feels he needs more there needs to be a reason for the increase, patient saw PCP in March and did not mention that he needs more HOME CARE GIVER hours. Uma will contact patient to see if there is a need and if yes he could possibly be referred to [facility] for their HOME CARE GIVER program. ) Social History Tobacco Use Types [...] Description 11/15/2024 10:00 AM EDT Office Visit [facility] [address] [place] [address] Howard Vegaaris [address] [place] [address] documented as of this encounter Visit Diagnoses Not on filedocumented in this encounter Additional Health Concerns Assessment Noted Time PHQ-9 Depression Total Score: 6 05/28/19 23 9:06 AM EDT documented as of this encounter Care Teams Jewel Blocker And Sawyer Relationship Specialty Start Date End Date Myla Subramanian MD [address] [place] [address] PCP - General Internal Medicine 02/10/23 documented as of this encounter
== END 2024-07-02 10:50 | disposition home or self-care (01) ==
LOC: HO.HCS 10:04
PROVIDERS: PCP Internal Medicine; Visit Provider Internal Medicine Cardiovascular Disease
DX: R07.89 Other chest pain (principal); I10 Essential (primary) hypertension
CPT/HCPCS: 93010; 99204; G2211

== ENCOUNTER → 2024-07-02 10:04 | Outpatient (BNVA) | payer MEDICARE, MEDICAID, SELFPAY | PROVIDERS: PCP Internal Medicine; Visit Provider Internal Medicine Cardiovascular Disease | DX: R07.89 Other chest pain (principal); I10 Essential (primary) hypertension | CPT/HCPCS: 93005; 99202 ==

== ENCOUNTER 2024-07-16 09:02 | Outpatient (REF) | payer MEDICARE, MEDICAID, SELFPAY ==
--- OUTSIDE RECORDS SUMMARY | 2024-07-16 09:47 | XMS_ITS | Clinical Summary ---
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 Assessment & Plan (05/27/2022 9:43 AM EDT): Previous referrals: Audiology: 05/16/22 last appointment, doesn't remember name of audiology next appointment june 15. Gastro: waiting on appointment, [facility] PT: waiting on appointment, [facility] Optometry: Never got a call, new referral [...] Description 05/13/2024 10:00 AM EDT Office Visit [facility] [address] [place] [id number] Myla Subramanian MD Essential hypertension (Primary Dx); Lumbar back pain; Chronic right shoulder pain; Chronic bilateral low back pain, unspecified whether sciatica present 05/13/2024 Travel 05/09/2024 2:00 PM EDT Office Visit [facility] [address] [place] [address] Ruth Vega Gingival recession, localized (Primary Dx); Dental calculus; Teeth missing 05/02/2024 Patient Outreach [facility] [address] [place] [address] Myla Subramanian MD Pre-visit Planning (SDOH screening negative and tobacco screening negative) 04/30/2024 9:15 AM EDT Office Visit [facility] [address] [place] [address] Ralph Black MD Chronic eczema (Primary Dx) 04/30/2024 Travel 04/26/2024 Population Health Risk Score [facility] ([facility]) Department [address] [phone] Provider, Population Health Generic 04/23/2024 Refill [facility] [address] [place] [address] Name, MD Seng Other atopic dermatitis from Last 3 Months Immunizations Immunization Administration [...] Care Team (Late st Contact Info) Description 09/10/2024 11:30 AM EDT Office Visit [facility] [address] [place] [address] Myla Subramanian MD [address] [place] [address] 11/15/2024 10:00 AM EDT Office Visit [facility] [address] [place] [address] Ruth Vega [address] [place] [address] Health Maintenance Due Date Last Done Comments Anal Pap 1960 CT Colonography 1960 Colonoscopy 1960 FIT 1960 FOBT 1960 Sigmoidoscopy 1960 Disability Screening 1960 Hepatitis A Vaccines (1 of 2 - Risk 2-dose series) 02/04/1979 Pneumococcal Vaccine: 50+ Years (1 of 1 - PCV) 02/04/2010 Hepatitis B Vaccines (1 of 3 - Risk 3-dose series) 2020 COVID-19 Vaccine ( - season) 2023 03/03/2022, 01/28/2021, 07/17/2020, Additional history [...] 8:12 AM EDT) Triglycerides 66 <150 mg/dL [facility] Comment:Desirable Triglyceri de: less than 150 mg/dLBorderline High Triglyceride 150-199 mg/dLHigh Triglyceride: 200-499 mg/dLVery High Triglyceride: greater than or equal to 5OO mg/dL Cholesterol 199 <200 mg/dL [facility] Comment:Desirable Cholestero l: less than 200 mg/dLBorderline High Cholesterol: 200-239 mg/dLHigh Cholesterol: greater than 239 mg/dL LDL Cholesterol Calculated 115(H) <100 mg/dL [facility] Comment:Desirable LDL: less than 100 mg/dLNear Optimal/Above Optimal LDL: 110- 129 mg/dLBorderline High LDL: 130-159 mg/dLHigh LDL: 160-189 mg/dLVery High LDL: greater than or equal to 190 mg/dL HDL Cholesterol 71 >40 mg/dL [facility] Comment:Desirable HDL: great er than 40 mg/dL Note: This HDL assay may give artificially low results in patients with liver disease. Blood Venous blood specimen / Unknown 05/14/2024 8:12 AM EDT 05/14/2024 11:21 AM EDT us Myla Sena MD LAB BLOOD ORDERABLES Final Result [facility] [address] [place] [phone] * (ABNORMAL) Basic Metabolic Panel (05/14/2024 8:12 AM EDT) Sodium 139 135 - 145 mmol/L [facility] Potassium 4.4 3.3 - 5.1 mmol/L [facility] Chloride 103 96 - 108 mmol/L [facility] Carbon Dioxide 29 22 - 29 mmol/L [facility] Anion Gap 11(L) 12 - 20 [facility] Urea Nitrogen (BUN) 20(H) 9 - 16 mg/dL [facility] Creatinine, Serum 0.87 0.5 - 1.4 mg/dL [facility] Estimated Glomerular Filt Rate >60 [facility] Comment:Chronic Kidney Disea se: Estimated GFR < 60 mL/min/1.33r4Yihvni Kidney Disease: Estimated GFR < 15 mL/min/1.73m2 Glucose 99 60 - 115 mg/dL [facility] Calcium 9.8 8.4 - 10.2 mg/dL [facility] Blood Venous blood specimen / Unknown 05/14/2024 8:12 AM EDT 05/14/2024 11:21 AM EDT Myla Sena MD LAB BLOOD ORDERABLES Final Result [facility] [address] [place] [phone] * Cologuard?? colon cancer screening (10/23/2023 7:07 AM EDT) Cologuard Result Negative Negative 10/26/19 10:15 PM EDT [facility] (CLIA #:[id number]) Comment: NEGATIVE TEST RESULT. A negative Cologuard [...] cancer. ??Following a negative Cologuard result, the [place] Cancer Society and U.S. Multi-Society Task Force screening guidelines recommend a Cologuard re-screening interval of 3 years. References: [place] [employer] Guideline for Colorectal Cancer Screening: https://www.cancer.org/cancer/mhkot-kbddar-ficlyu/jhubahfjt-prtmowyxf-bxswooz/ac s-rec ommendations.html.; José DK, Bryce CR, Ashley BhaktaK, Colorectal Cancer Screening: Recommendations for Physicians and Patients from the U.S. Multi-Society Task Force on Colorectal Cancer Screening , Am J Gastroenterology 2017; 112:8433-9687. TEST DESCRIPTION: Composite algorithmic analysis of stool [...] (Nelia Huang al, N Engl J Med 2014;370(14):4494-2433.) Cologuard may produce a false negative or false positive result (no colorectal cancer or precancerous polyp present at colonoscopy follow up). A negative Cologuard test result does not guarantee the absence of CRC or advanced adenoma (pre-cancer). The current Cologuard screening interval is every 3 years. ([place] [employer] Society and U.S. Multi-Society Task Force). Cologuard performance data in a 10,000 patient pivotal study using colonoscopy as the reference method can be accessed at the following location: www.howsimple.com/results. Additional description of the Cologuard test process, warnings and precautions can be found at www.PitchEngine.SysClass. Stool specimen (specimen) 10/23/2023 7:07 AM EDT 10/24/2023 2:06 PM EDT us Myla Sena MD LAB MOLECULAR DIAGNOS TICS ORDERABLES Final Result [facility] (CLIA #:[id number]) [place] [address], * (ABNORMAL) POCT HGB A1C (04/10/2023 3:11 [...] Hepatitis C Antibody NON-REACT DEONDRE NON-REACT DEONDRE [employer] [place] [employer] Index 0.07 <1.00 [employer] [place] [employer] Comment: HCV antibody was non-reactive. There is no laboratory evidence of HCV infection. In most cases, no further action is required. However, if recent HCV exposure is suspected, a test for HCV RNA (test code 10162) is suggested. For additional information please refer to http://education.Optherion/faq/RJF32v0 (This link is being provided for informational/ educational purposes only.) Blood Venous blood specimen / Unknown 07/22/2022 9:31 AM EDT 07/22/2022 9:31 AM EDT Narrative [facility] - 07/23/2022 12:54 AM EDT FASTING:NO FASTING: NO Alfonso Cuello AGNP LAB BLOOD ORDERABLES Final Res ult [facility] [address], [place] [address] [employer] [address] [place] [phone] * HIV 1/2 ANTIGEN/ANTIBODY,FOURTH GENERATION W/RFL (08/04/2021 10:05 AM EDT) Pathologist [facility] HIV-1/2 ANTIGEN AND ANTIBODIES, 4TH GENERATION W/ REFLEX NON-REACT DEONDRE NON-REACT DEONDRE [facility] Comment: HIV-1 antigen and HIV-1/HIV-2 [...] ? For additional information please refer to http://education.Optherion/faq/NKF909 (This link is being provided for informational/ educational purposes only.) ? The performance of this assay has not been clinically validated in patients less than 2 years old. ?? 08/04/2021 10:0 5 AM EDT Tresa Paz EMTS LAB BLOOD ORDERABLES Final Resu lt [facility] [address] from Last 3 Months or Most Recently Relevant to Health Maintenance Insurance [facility] STANDARD [place] [phone] [facility]AL-[facility] MEDICAID STAND ADULT Care Teams Wildlife Biology Technician Relationship Specialty Start Date End Date Myla Subramanian MD [address] [facility] [place] [address] PCP - General Internal Medicine 02/10/23
--- NOTE | 2024-07-16 09:56 | MHC.AU.HA3 ---
Hearing Instrument Follow-Up- Binaural Date of Visit: 07/16/24 Right Ear: Make, Model, Color, Serial Number: Ama Pabon P70-UP SN: [id number] Color: Beige [employer]addy Repair Warranty: 04/11/2024 [employer]addy Loss and Damage Warranty: 04/11/2024 [facility] Service Plan: 02/11/2022 Battery Size: 675 Earmold/Dome/CShell/SlimTip:Microsonic M2000 Clear Canal-Lock Dispensed By: [facility] Date of Fittin02/11/2021 Left Ear: Make, Model, Color, Serial Number: Ama Pabon P70-UP SN: [id number] Color: Beige [employer]addy Repair Warranty: 04/11/2024 Caddy Loss and Damage Warranty: 04/11/2024 [facility] Service Plan: 02/11/2022 Battery Size: 675 Earmold/Dome/CShell/SlimTip: Microsonic M2000 Clear Canal-Lock Dispensed By: [facility] Date of Fittin02/11/2021 Follow-Up Summary: Left BLANCA/EM dropped off, tubing slipped out of EM. Cleaned BLANCA (1). Cleaned EM (1). Replaced tubing (1). [phone] x3. Listening check demonstrated BLANCA amplifying clearly. As previously noted, Chunk of earmold appears to be missing at tip but not causing issue. Recommend scheduling appointment for MAXIM if issues arise. Recommendations: Hearing instrument follow-up or maintenance as needed. Please contact our clinic with any questions or concerns. Diagnosis Code(s): Primary Diagnosis: H90.3 Bilateral Sensorineural Hearing Loss Signature: Provider: Sandeep Simpson, [facility]
== END 2024-07-16 09:03 | disposition home or self-care (01) ==
LOC: HO.HAP 09:02
PROVIDERS: Visit Provider Internal Medicine
DX: Z46.1 Encounter for fitting and adjustment of hearing aid (principal); H90.3 Sensorineural hearing loss, bilateral
CPT/HCPCS: 92592; 99499

== ENCOUNTER → 2024-08-07 10:01 | Outpatient (REF) | payer MEDICARE, MEDICAID, SELFPAY ==
--- NOTE | 2024-08-07 10:05 | CA_ITS ---
Transthoracic Echocardiogram Patient (Last, First, Middle): Bereket Parks A Gender: Male Date of : 1960 Age: 64 Procedure Date: 08/07/2024 Procedure Type: Transthoracic Echocardiogram Location: OP Height: 167.64 cm Weight: 55.79 kg BSA: 1.63 m2 Heart Rate: bpm BP: 110 / 60 mmHg Automotive Brake Adjuster: AMBROSE Referring MD: Umberto Barbosa MD Symptoms: I10 - Essential (primary) hypertension Study Quality: Good ECG Rhythm: Sinus Conclusions: - The left ventricular systolic function is normal. The calculated ejection fraction is 66% by biplane method. - No obvious valvular pathology seen on this study. Findings Left Ventricle Normal left ventricular cavity size. There is normal left ventricular wall thickness. The left ventricular systolic function is normal. The calculated ejection fraction is 66% by biplane method. There is no evidence of regional wall motion abnormalities. Diastolic function is normal for age. Right Ventricle Normal right ventricular cavity size and systolic function. Atria Both atria are normal in size. Aortic Valve There is a normal trileaflet aortic valve. There is no aortic valve stenosis. There is no aortic valve regurgitation. Mitral Valve The mitral valve appears normal. There is no mitral valve regurgitation. There is no mitral valve stenosis. Pulmonic Valve The pulmonic valve is likely normal. Tricuspid Valve There is trace tricuspid valve regurgitation. There is no evidence of pulmonary hypertension. Great Vessels The asc aorta is normal in size. Venous The inferior vena cava is normal in size and collapses greater than 50% with inspiration. Pericardium/Pleural There is no evidence of pericardial effusion. Prior Study Comparison No prior study available for comparison. Recommendations, Care & Conclusions No obvious valvular pathology seen on this study. Measurements 2D Linear Measurements IVSd: 0.96 0.6-0.9/0.6-1.0 cm LVIDd: 3.69 3.9-5.3/4.2-5.9 cm LVIDd Index: 2.26 2.4-3.2/2.2-3.1 cm/m2 LVIDs: 2.11 2.0-3.6 cm LVPWd: 0.88 0.7-1.1 cm Ao Root: 3.20 2.1-3.5 cm LA Diam: 2.30 2.7-3.8/3.0-4.0 cm LAIDs Index: 1.41 1.5-2.3 cm/m2 LV Mass: 123.05 67-162/88-224 g LV Mass Index: 75.49 43-95/49-115 g/m2 LVOT Diam: 2.00 3.0+(-)1.3 cm 2D Systolic Function EF 4C: 67.40 >55% EF 2C: 64.00 >55% EF BiP: 65.80 >55% Mitral Valve MV Pk E: 0.58 MV PK A: 0.58 MV Decel Time: 239.00 E/A: 1.00 E'Lateral: 9.46 E'Medial: 8.59 E/E' Med: 6.70 E/E' Lat: 6.10 PHT: 70.00 MVA PHT: 3.14 Decel Esmeralda: 2.42 Aortic Valve AoV Pk Pablo: 1.28 AoV Mn Pablo: 0.90 AoV VTI: 0.23 AoV Pk Grad: 7.00 Aov Mn Grad: 4.00 JUAN Cont.VTI: 2.15 LVOT LVOT Pk Pablo: 0.87 LVOT Mn Pablo: 0.61 LVOT VTI: 0.16 LVOT Pk Grad: 3.00 LVOT Mn Grad: 2.00 LVOT Diam: 2.00 LVOT Area: 3.14 Diastolic Function MV Pk E: 0.58 MV Pk A: 0.58 E/A: 1.00 E'Medial: 8.59 E/E' Med: 6.70 E' Laterial: 9.46 E/E' Lat: 6.10 Right Ventricle TAPSE (mm): 19.00 Tricuspid Valve TR Pk Pablo: 2.00 TR Pk Grad: 16.00 RA Press: 3.00 RVSP: 19.00 Great Vessels Aorta Ao Root-2D: 3.20 2.0-3.7 cm Ao Asc: 2.90 2.1-3.4 cm Pulmonary Valve PV Pk Pablo: 1.18 Peak PV Grad: 6.00 Updated in Other Vendor System with Status of Final Timur Kan MD electronically signed on 08/09/2024 3:21:11 PM with status of Final
--- OUTSIDE RECORDS SUMMARY | 2024-08-07 11:30 | XMS_ITS | Clinical Summary ---
Author Organization [employer] Address 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 Continue to [...] [place] [facility] Assessment & Plan (05/27/2022 9:43 AM EDT): Previous referrals: Audiology: 05/16/22 last appointment, doesn't remember name of audiology next appointment june 15. Gastro: waiting on appointment, [facility] [place]: waiting on appointment[place] [facility] Optometry: Never got a call, new referral [...] ago Hemoglobin A1C 4.0 - 6.0 % 6.2 Abnormal 6.2 Abnormal 5.7 High R, CM 5.9 High R, CM 5.8 High R, Patient maintains prediabetic status. Diet and exercise advised. Assessment & Plan (05/27/2022 9:44 AM EDT): Glucose 127 A1C 6.2 We discussed dietary changes including watching carbs, exercise 30 min/ day, most days. ED precautions discussed. F/up 6 months A1C Sensorineural hearing loss, bilateral 11/18/2020 Encounters Date Type Department Care Team Description 05/13/2024 10:00 AM EDT Office Visit [facility] MEDICINE [address] [place] [address] Myla Subramanian MD Essential hypertension (Primary Dx); Lumbar back pain; Chronic right shoulder pain; Chronic bilateral low back pain, unspecified whether sciatica present 05/13/2024 Travel 05/09/2024 2:00 PM EDT Office Visit [facility] ADULT DENTAL [address] [place] [address] Ruth Vega Gingival recession, localized (Primary Dx); Dental calculus; Teeth missing from Last 3 Months Immunizations Immunization Administration [...] is your housing situation today? I have trcae madden 05/02/[address] you [...] 88 05/13/2024 9:26 AM EDT Temperature 35.7 C (96.3 F) 05/13/2024 9:26 AM EDT Respiratory Rate 16 05/13/2024 9:26 AM EDT [...] Description 09/10/2024 11:30 AM EDT Office Visit [facility] MEDICINE [address] [place] [address] Myla Subramanian MD [address] [place] [address] 11/15/2024 10:00 AM EDT Office Visit [facility] ADULT DENTAL [address] [place] [address] Howard Vegaaris [address] [place] [address] Health Maintenance Due Date Last Done Comments [...] 07/17/2020, Additional history exists Diabetes: Hemoglobin A1C 04/10/20242 024, 08/31/2022, 05/27/2022, Additional history exists Depression [...] 2 :00 PM EDT Dental calculus LAB COLOGUARD COLON CANCER SCREEN Routine 10/23/2023 7:07 AM [...] 8:12 AM EDT) Triglycerides 66 <150 mg/dL [facility] Comment:Desirable Triglyceri de: less than 150 mg/dLBorderline High Triglyceride 150-199 mg/dLHigh Triglyceride: 200-499 mg/dLVery High Triglyceride: greater than or equal to 5OO mg/dL Cholesterol 199 <200 mg/dL [facility] Comment:Desirable Cholestero l: less than 200 mg/dLBorderline High Cholesterol: 200-239 mg/dLHigh Cholesterol: greater than 239 mg/dL LDL Cholesterol Calculated 115(H) <100 mg/dL [facility] Comment:Desirable LDL: less than 100 mg/dLNear Optimal/Above Optimal LDL: 110- 129 mg/dLBorderline High LDL: 130-159 mg/dLHigh LDL: 160-189 mg/dLVery High LDL: greater than or equal to 190 mg/dL HDL Cholesterol 71 >40 mg/dL [facility] Comment:Desirable HDL: great er than 40 mg/dL Note: This HDL assay may give artificially low results in patients with liver disease. Blood Venous blood specimen / Unknown 05/14/2024 8:12 AM EDT 05/14/2024 11:21 AM EDT us Myla Sena MD LAB BLOOD ORDERABLES Final Result Performing Organization Address City/[facility]/ZIP Co de Phone Number [facility] [address] [place] [address] [phone] * (ABNORMAL) Basic Metabolic Panel (05/14/2024 8:12 AM EDT) Sodium 139 135 - 145 mmol/L [facility] Potassium 4.4 3.3 - 5.1 mmol/L [facility] Chloride 103 96 - 108 mmol/L [facility] Carbon Dioxide 29 22 - 29 mmol/L [facility] Anion Gap 11(L) 12 - 20 [facility] Urea Nitrogen (BUN) 20(H) 9 - 16 mg/dL [facility] Creatinine, Serum 0.87 0.5 - 1.4 mg/dL [facility] Estimated Glomerular Filt Rate >60 [facility] Comment:Chronic Kidney Disea se: Estimated GFR < 60 mL/min/1.36x7Prferc Kidney Disease: Estimated GFR < 15 mL/min/1.73m2 Glucose 99 60 - 115 mg/dL [facility] Calcium 9.8 8.4 - 10.2 mg/dL [facility] Blood Venous blood specimen / Unknown 05/14/2024 8:12 AM EDT 05/14/2024 11:21 AM EDT us Myla Sena MD LAB BLOOD ORDERABLES Final Result Performing Organization Address [facility]/ZIP Co de Phone Number [facility] [address] [place] [address] [phone] * Cologuard?? colon cancer screening (10/23/2023 7:07 AM EDT) Cologuard Result Negative Negative 10/26/19 24 10:15 PM EDT [facility] (CLIA #:[id number]) Comment: NEGATIVE TEST RESULT. A negative Cologuard result indicates a low likelihood that a colorectal cancer (CRC) or advanced adenoma (adenomatous polyps with more advanced pre-malignant features) is present. The chance that a person with a negative Cologuard test has a colorectal cancer is less than 1 in 1500 (negative predictive value >99.9%) or has an advanced adenoma is less than 5.3% (negative predictive value 94.7%). These data are based on a prospective cross-sectional study of 10,000 individuals at average risk for colorectal cancer who were screened with both Cologuard and colonoscopy. (Nelia Huang al, N Engl J Med 2014;370(14):6431-0661) The normal value (reference range) for this assay is negative. COLOGUARD RE-SCREENING RECOMMENDATION: Periodic colorectal cancer screening is an important part of preventive healthcare for asymptomatic individuals at average risk for colorectal cancer. Following a negative Cologuard result, the [place] [employer] and U.S. Multi-Society Task Force screening guidelines recommend a Cologuard re-screening interval of 3 years. References: [place] [employer] Guideline for Colorectal Cancer Screening: https://www.cancer.org/cancer/uitvt-edoidu-dikklh/myaezrsym-iiguumehq-dqdyprc/ac s-rec ommendations.html.; José DK, Bryce CR, Ashley BhaktaK, Colorectal Cancer Screening: Recommendations for Physicians and Patients from the U.S. Multi-Society Task Force on Colorectal Cancer Screening , Am J Gastroenterology 2017; 112:9214-7375. TEST DESCRIPTION: Composite algorithmic analysis of stool DNA-biomarkers with hemoglobin immunoassay. Quantitative values of individual biomarkers are not [...] Robin et al, N Engl J Med 2014;370(14):8896-9562.) Cologuard may produce a false negative or false positive result (no colorectal cancer or precancerous polyp present at colonoscopy follow up). A negative Cologuard test result does not guarantee the absence of CRC or advanced adenoma (pre-cancer). The current Cologuard screening interval is every 3 years. ([place] [employer] and U.S. Multi-Society Task Force). Cologuard performance data in a 10,000 patient pivotal study using colonoscopy as the reference method can be accessed at the following location: www.[employer].Spodly/results. Additional description of the Cologuard test process, warnings and precautions can be found at www.ForS[employer] Labsrd.Spodly. Stool specimen (specimen) 10/23/2023 7:07 AM EDT 10/24/2023 2:06 PM EDT Myla Sena MD LAB MOLECULAR DIAGNOS TICS ORDERABLES Final Result [facility] (CLIA #:[id number]) [place] [address], * (ABNORMAL) POCT HGB A1C (04/10/2023 3:11 [...] Hepatitis C Antibody NON-REACT DEONDRE NON-REACT DEONDRE [facility] [employer] Index 0.07 <1.00 [facility] [employer] Comment: HCV antibody was non-reactive. There is no laboratory evidence of HCV infection. In most cases, no further action is required. However, if recent HCV exposure is suspected, a test for HCV RNA (test code 39654) is suggested. For additional information please refer to http://education.Exo/faq/NBW07u7 (This link is being provided for informational/ educational purposes only.) Blood Venous blood specimen / Unknown 07/22/2022 9:31 AM EDT 07/22/2022 9:31 AM EDT Narrative [facility] - 07/23/2022 12:54 AM EDT FASTING:NO FASTING: NO Result [facility] Alfonso Cuello [facility] LAB BLOOD ORDERABLES Final Res ult [facility] [address], [place] [address] [facility] [employer] [facility] [address] [place] [address] * HIV 1/2 ANTIGEN/ANTIBODY,FOURTH GENERATION W/RFL (08/04/2021 10:05 AM EDT) HIV-1/2 ANTIGEN AND ANTIBODIES, 4TH GENERATION W/ REFLEX NON-REACT DEONDRE NON-REACT DEONDRE [facility] Comment: HIV-1 antigen and HIV-1/HIV-2 antibodies were not detected. There is no laboratory evidence of HIV infection. PLEASE NOTE: This information has been disclosed to you from records whose confidentiality may be protected by state law. If your state requires such protection, then the state law prohibits you from making any further disclosure of the information without the specific written consent of the person to whom it pertains, or as otherwise permitted by law. A general authorization for the release of medical or other information is NOT sufficient for this purpose. For additional information please refer to http://education.Exo/faq/YKS890 (This link is being provided for informational/ educational purposes only.) The performance of this assay has not been clinically validated in patients less than 2 years old. 08/04/2021 10:0 5 AM EDT us Tresa Paz NP LAB BLOOD ORDERABLES Final Resu lt [facility] [address] from Last 3 Months or Most Recently Relevant to Health Maintenance Insurance [facility] STANDARD MEDICARE DENTAL-[facility] MEDICAID STAND ADULT Care Teams Food Products Sales Representative Relationship Specialty Start Date End Date Myla Subramanian MD [address] [place] [address] PCP - General Internal Medicine 02/10/23
== END ==
LOC: HO.CARD 10:01
PROVIDERS: PCP Internal Medicine; Visit Provider Internal Medicine Cardiovascular Disease
DX: I10 Essential (primary) hypertension (principal)
CPT/HCPCS: 93306

== ENCOUNTER → 2024-08-07 10:05 | Outpatient (BNV) | payer MEDICARE, MEDICAID, SELFPAY | PROVIDERS: PCP Internal Medicine; Visit Provider Internal Medicine | DX: I10 Essential (primary) hypertension (principal) | CPT/HCPCS: 93306 ==

== ENCOUNTER 2024-09-12 09:16 | Outpatient (REF) | payer MEDICARE, MEDICAID, SELFPAY ==
--- OUTSIDE RECORDS SUMMARY | 2024-09-12 09:33 | XMS_ITS | Clinical Summary ---
Author Organization [employer] Address [address] [facility] 7t [place] [address] Care Team Providers Care Cosmetology Professor Name Role Phone Myla Subramanian MD Primary [...] BY MOUTH EVERY DAY 90 tablet 1 03/25/19 25 Active lisinopril-hydr oCHLOROthiazide 20-12.5 MG tabletIndicatio [...] swelling). 80 g 3 05/01/19 25 Active aluminum & magnesium hydroxide-simet hicone (Myrna-Lanta) 200-200-20 MG/5ML oral suspensionIndic ations:Gastroes ophageal reflux disease, unspecified whether esophagitis present Take 5 mL by mouth every 6 (six) hours if needed for indigestion or heartburn for up to 10 days. 355 mL 2 09/11/19 25 2024 Active Diclofenac Sodium (Voltaren) 1 % gelIndications: Lumbar back pain,Chronic right shoulder pain Apply 2 g topically 3 times daily. 100 g 11 09/11/19 25 Active acetaminophen (Tylenol Extra Strength) 500 MG tabletIndicatio ns:Lumbar back pain Take 1 tablet (500 mg) by mouth every 6 (six) hours if needed for moderate pain for up to 23 days. 30 tablet 2 09/11/19 25 2024 Active Diclofenac Sodium (Voltaren) 1 % gelIndications: Lumbar back pain,Chronic right shoulder pain Apply 2 g topically 3 times daily. 100 g 11 05/14/19 25 2024 Discontinued(R eorder (will not trigger notification to Pharmacy)) Active Problems Problem Noted Date Diagnosed Date Diminished vision 09/10/2024 Gingival recession, localized 05/09/2024 Other chest pain 02/12/2024 Assessment & Plan (02/12/2024 4:17 PM EST): Cardiology referral Other atopic dermatitis 02/12/2024 Assessment & Plan (02/12/2024 4:17 PM EST): Triamcinolone and Banophen prescribed I will refer him to allergy and grain origination specialist Gastroesophageal reflux disease without esophagi tis [...] If problem persist or worse come to [facility] possible referral to surgery Cognitive impairment 07/13/2023 Assessment & Plan (07/13/2023 11:03 AM EDT): I will call and find out why his [employer] hours where reduced Dental plaque 06/20/2023 Teeth [...] has a colonoscopy scheduled for 09/14 at [facility]. Assessment & Plan (05/27/2022 9:43 AM EDT): Previous referrals: Audiology: 05/16/22 last appointment, doesn't remember name of audiology next appointment june 15. Gastro: waiting on appointment, [facility] PT: waiting on appointment, [facility] Optometry: Never got a call, new referral sent Essential hypertension 01/05/2022 Assessment & Plan (09/10/2024 2:01 PM EDT): I advised: - Aerobic exercise to reduce [...] consulting health care provider Assessment & Plan (05/13/2024 11:18 AM EDT): [...] Gastroesophageal reflux disease 08/09/2021 Assessment & Plan (09/10/2024 2:05 PM EDT): I advise patient to avoid NSAIDs, spicy and acid food, I advise to eat at the same time every day, I advise to elevate the head of the bed and take medications as prescribe Assessment & Plan (02/12/2024 4:16 PM EST): I advise patient to avoid NSAIDs, spicy and acid food, I advise to eat at the same time every day, I advise to elevate the head of the bed and take medications as prescribe Prediabetes 01/29/2021 Assessment & Plan (09/10/2024 2:01 PM EDT): Today extensive discussion was done about life style modifications I advise healthy diet (low calorie) and cardiovascular exercise Assessment & Plan (04/10/2023 4:47 PM EST): [...] Encounters Date Type Department Care Team Description 09/10/2024 11:30 AM EDT Office Visit [facility] [address] [place] [phone] Myla Subramanian MD Prediabetes; Lumbar back pain; Chronic right shoulder pain; Essential hypertension; Gastroesophageal reflux disease, unspecified whether esophagitis present; Diminished vision 09/10/2024 Travel 09/10/2024 Telephone [facility] [address] [place] [phone] Myla Subramanian MD Chart Prep from Last 3 Months Immunizations Immunization Administration [...] Sign Reading Time Taken Comments Blood Pressure 139/79 09/10/2024 11:32 AM EDT Pulse 86 09/10/2024 11:32 AM EDT Temperature 37 C (98.6 F) 09/10/2024 11:32 AM EDT Respiratory Rate 16 09/10/2024 11:32 AM EDT Oxygen Saturation 99% 09/10/2024 11:32 AM EDT Inhaled Oxygen Concentration - - Weight 55.4 kg (122 lb 3.2 oz) 09/10/2024 11:32 AM EDT Height 167.6 cm (5' 6 ) 09/10/2024 11:32 AM EDT Body Mass Index 19.72 09/10/2024 11:32 AM EDT Plan of Treatment Upcoming Encounters Date Type Department Care Team (Late st Contact Info) Description 11/15/2024 10:00 AM EDT Office Visit [facility] ADULT DENTAL [address] [place] [address] Gary, Ruth [address] [place] [address] 12/27/2024 1:30 PM EST Office Visit [facility] OPTOM[facility]RY [address] [place] [address] Tien, Farzana, OD [address] [place] [address] Health Maintenance Due Date Last Done Comments Anal Pap 1960 CT Colonography 1960 Colonoscopy 1960 FIT 1960 Sigmoidoscopy 1960 Hepatitis A Vaccines (1 of 2 - Risk 2-dose series) 02/04/1979 Pneumococcal Vaccine: 50+ Years (1 of 1 - PCV) 02/04/2010 Hepatitis B Vaccines (1 of 3 - Risk 3-dose series) 2020 COVID-19 Vaccine ( season) 2023 03/03/2022, 01/28/2021, 07/17/2020, Additional history exists Depression Screening 07/12/2024 07/13/2023, 07/13/19 24 Influenza Vaccine (#1) 2024 , 04/10/2023, 11/05/2021, Additional history exists FOBT 10/22/2024 10/23/2023 Dental Oral Exam 11/10/2024 05/09/2024, , 02/23/2022 Dental Prophylaxis 11/10/2024 05/09/2024, 0 06/20/2023, 09/01/2022 SDOH Screening 05/02/2025 05/02/2024 Dental X-Ray: Bitewings 05/10/2025 05/10/19 25, 06/20/2023, 02/23/2022 Alcohol/Substance Use Screening 09/10/2025 09/10/2024 Diabetes: Hemoglobin A1C 09/10/2025 025, 04/10/2023, 08/31/2022, Additional history exists Disability Screening 09/10/2025 09/10/2024 Tobacco Screening 09/10/2025 09/10/2024 Colorectal Cancer Screening 10/22/2026 FIT DNA/Cologuard 10/22/2026 10/23/2023 Dental X-Ray: Full Mouth 05/11/2027 05/09/2024, 11/14 Lipid Panel 05/14/2029 05/14/2024, 03/16, 11/24/2021, Additional history exists DTaP/Tdap/Td Vaccines (2 - Td or Tdap) 11/06/2031 11/05/2021 HIV Screening Completed 08/04/2021 Zoster Vaccines Completed 11/05/2021, 08/05/2021 Hepatitis C Screening Completed 07/22/2022, 022 RSV Patients and Patients Aged 60 years or older Completed 04/14/2023 HIB Vaccines Aged Out No longer eligi [...] Procedure Name Priority Date/Time Associated Diagnosis Comments POCT GLYCATED HEMOGLOBIN, TOTAL Routine 09/10/2024 11:33 AM EDT Prediabetes POCT GLUCOSE Routine 09/10/2024 11:33 AM EDT Prediabetes LIPID PANEL, STANDARD Routine 05/14/2024 8:12 AM EDT Essential hypertension PROPHYLAXIS - ADULT Routine 05/09/2024 2 :00 PM EDT Dental calculus INTRAORAL - COMPLETE SERIES OF RADIOGRAPHIC IMAGES Routine 05/09/2024 2:00 PM EDT Gingival recession, localized Dental calculus Teeth missing PERIODIC ORAL EVALUATION - ESTABLISHED PATIENT Routine 05/09/2024 2:00 PM EDT LAB COLOGUARD COLON CANCER SCREEN Routine 10/23/2023 7:07 AM EDT Colon cancer screening HEPATITIS C AB W/REFL TO HCV RNA, QN, PCR Routine 07/22/2022 9:31 AM EDT Routine adult health maintenance HIV 1/2 ANTIGEN/ANTIBODY, FOURTH GENERATION W/RFL Routine 08/04/2021 10:05 AM EDT from Last 3 Months or Most Recently Relevant to Health Maintenance Results * (ABNORMAL) POCT HGB A1C (09/10/2024 11:33 AM EDT) Hemoglobin A1C 5.8(A) 4.0 - 5.7 % QC Media Lot # [id number] Lot# Expiration Date 082, Blood 09/10/2024 11:3 3 AM EDT Myla Sena MD POINT OF CARE TEST EN TER/EDIT ORDERABLES Final Result * POCT Glucose (09/10/2024 11:33 AM EDT) Glucose Blood, POC 110 60 - 200 mg/dL QC Media Lot # [id number] Lot# Expiration Date [id number] Blood Capillary blood specimen / Unknown 09/10/2024 11:33 AM EDT Myla Sena MD POINT OF CARE TEST EN TER/EDIT ORDERABLES Final Result * (ABNORMAL) Lipid Panel, Standard (05/14/2024 8:12 AM EDT) Triglycerides 66 <150 mg/dL [facility] Comment:Desirable Triglyceri de: less than 150 mg/dLBorderline High Triglyceride 150-199 mg/dLHigh Triglyceride: 200-499 mg/dLVery High Triglyceride: greater than or equal to 5OO mg/dL Cholesterol 199 <200 mg/dL [facility] Comment:Desirable Cholestero l: less than 200 mg/dLBorderline High Cholesterol: 200-239 mg/dLHigh Cholesterol: greater than 239 mg/dL LDL Cholesterol Calculated 115(H) <100 mg/dL [facility] Comment:Desirable LDL: less than 100 mg/dLNear Optimal/Above Optimal LDL: 110- 129 mg/dLBorderline High LDL: 130-159 mg/dLHigh LDL: 160-189 mg/dLVery High LDL: greater than or equal to 190 mg/dL HDL Cholesterol 71 >40 mg/dL [facility] Comment:Desirable HDL: great er than 40 mg/dL Note: This HDL assay may give artificially low results in patients with liver disease. Blood Venous blood specimen / Unknown 05/14/2024 8:12 AM EDT 05/14/2024 11:21 AM EDT Myla Sena MD LAB BLOOD ORDERABLES Final Result [facility] [address] [place] [phone] * Cologuard?? colon cancer screening (10/23/2023 7:07 AM EDT) Cologuard Result Negative Negative 10/26/19 24 10:15 PM EDT [facility] (CLIA #:[id number]) Comment: NEGATIVE TEST RESULT. A negative Cologuard [...] screened with both Cologuard and colonoscopy. (Nelia Ward, N Engl J Med 2014;370(14):6747-8695) The normal value (reference range) for this assay is negative. COLOGUARD RE-SCREENING RECOMMENDATION: Periodic colorectal cancer screening is an important part of preventive healthcare for asymptomatic individuals at average risk for colorectal cancer. Following a negative Cologuard result, the [place] Cancer Society and U.S. Multi-Society Task Force screening guidelines recommend a Cologuard re-screening interval of 3 years. References: [place] [employer] Guideline for Colorectal Cancer Screening: https://www.cancer.org/cancer/vcpta-rjulhg-jjpjmc/qmahhessb-ziqfdtakj-gjvowpb/ac s-rec ommendations.html.; José DK, Bryce FRASER, Ashley BhaktaK, Colorectal Cancer Screening: Recommendations for Physicians and Patients from the U.S. Multi-Society Task Force on Colorectal Cancer Screening , Am J Gastroenterology 2017; 112:5612-7638. TEST DESCRIPTION: Composite algorithmic analysis of stool [...] screened with both Cologuard and colonoscopy. (Nelia Ward, N Engl J Med 2014;370(14):4363-5913.) Cologuard may produce a false negative or false positive result (no colorectal cancer or precancerous polyp present at colonoscopy follow up). A negative Cologuard test result does not guarantee the absence of CRC or advanced adenoma (pre-cancer). The current Cologuard screening interval is every 3 years. ([place] [employer] Society and U.S. Multi-Society Task Force). Cologuard performance data in a 10,000 patient pivotal study using colonoscopy as the reference method can be accessed at the following location: www.Big Stage.SayNow/results. Additional description of the Cologuard test process, warnings and precautions can be found at www.cologDigifeyerd.com. Stool specimen (specimen) 10/23/2023 7:07 AM EDT 10/24/2023 2:06 PM EDT Myla Sena MD LAB MOLECULAR DIAGNOS TICS ORDERABLES Final Result Performing Organization Address City/[facility] Co de Phone Number Molecular Imaging (CLIA #:[id number]) [place] [address], * Hepatitis C Antibody with Reflex to HCV, RNA, Quantitative, Real-Time PCR (07/22/2022 9:31 AM EDT) Hepatitis C Antibody NON-REACT DEONDRE NON-REACT DEONDRE [facility] Index 0.07 <1.00 [facility] Comment: HCV antibody was non-reactive. There is no laboratory evidence of HCV infection. In most cases, no further action is required. However, if recent HCV exposure is suspected, a test for HCV RNA (test code 91640) is suggested. For additional information please refer to http://education.[employer].SayNow/faq/IQN00r3 (This link is being provided for informational/ educational purposes only.) Blood Venous blood specimen / Unknown 07/22/2022 9:31 AM EDT 07/22/2022 9:31 AM EDT Narrative [facility] - 07/23/2022 12:54 AM EDT FASTING:NO FASTING: NO Alfonso MENDOZA LAB BLOOD ORDERABLES Final Res ult [facility] [address] [facility] [place] [address] [facility] [address] [place] [address] * HIV 1/2 ANTIGEN/ANTIBODY,FOURTH GENERATION W/RFL (08/04/2021 10:05 AM EDT) HIV-1/2 ANTIGEN AND ANTIBODIES, 4TH GENERATION W/ REFLEX NON-REACT DEONDRE NON-REACT DEONDRE [facility] Comment: HIV-1 antigen and HIV-1/HIV-2 [...] purpose. For additional information please refer to http://education.[employer]ang [employer]/faq/RIM063 (This link is being provided for informational/ educational purposes only.) The performance of this assay has not been clinically validated in patients less than 2 years old. 08/04/2021 10:0 5 AM EDT us Tresa Paz PLASTIC DUPLICATOR LAB BLOOD ORDERABLES Final Resu lt [facility] [address] from Last 3 Months or Most Recently Relevant to Health Maintenance Insurance [facility] STANDARD MEDICARE DENTAL-[facility] MEDICAID STAND ADULT Care Teams Cosmetology Professor Relationship Specialty Start Date End Date Myla Subramanian MD [address] [place] [phone] PCP - General Internal Medicine 02/10/23
--- NOTE | 2024-09-12 10:50 | MHC.AU.HA3 ---
Hearing Instrument Follow-Up- Binaural Date of Visit: 09/12/24 Right Ear: Make, Model, Color, Serial Number: Ama Pabon P70-UP SN: [id number] Color: Beige Roll Table Operator Repair Warranty: 04/11/2024 Roll Table Operator Loss and Damage Warranty: 04/11/2024 [facility] Service Plan: 02/11/2022 Battery Size: 675 Cafeteria Counter Attendant/Slim Tube: Earmold/Dome/CShell/SlimTip:Microsonic M2000 Clear Canal-Lock Type of Wax Guard: Dispensed By: [facility] Date of Fittin02/11/2021 Left Ear: Dwayne, Model, Color, Serial Number: Ama Pabon P70-UP SN: [id number] Color: Beige Roll Table Operator Repair Warranty: 04/11/2024 Roll Table Operator Loss and Damage Warranty: 04/11/2024 [facility] Service Plan: 02/11/2022 Battery Size: 675 Cafeteria Counter Attendant/Slim Tube: Earmold/Dome/CShell/SlimTip: Microsonic M2000 Clear Canal-Lock Type of Wax Guard: Dispensed By: [facility] Date of Fittin02/11/2021 Follow-Up Summary: R BLNACA D/O, C/O tube loose. Found tube hard, moisture in tube. Cleaned aid (1), cleaned earmold (1), re-tubed earmold (1), [place] [address] 3 units. Listening check positive. Recommendations: Recommendations: Hearing instrument follow-up or maintenance as needed. Diagnosis Code(s): Primary Diagnosis: H90.3 Bilateral Sensorineural Hearing Loss Signature: Provider: Sandeep Cook, [facility]
== END 2024-09-12 09:17 | disposition home or self-care (01) ==
LOC: HO.HAP 09:16
PROVIDERS: Visit Provider Internal Medicine
DX: H90.3 Sensorineural hearing loss, bilateral (principal)
CPT/HCPCS: 92592; 99499; V5266

== ENCOUNTER 2024-10-21 09:45 | Outpatient (REF) | payer MEDICARE, MEDICAID, SELFPAY ==
--- NOTE | 2024-10-21 10:57 | MHC.AU.HA3 ---
Hearing Instrument Follow-Up- Binaural Date of Visit: 10/21/24 Right Ear: Make, Model, Color, Serial Number: Ama Pabon P70-UP SN: [id number] Color: Beige Arc Welder Apprentice Repair Warranty: 04/11/2024 Arc Welder Apprentice Loss and Damage Warranty: 04/11/2024 [facility] Service Plan: 02/11/2022 Battery Size: 675 Director Dental Services/Slim Tube: Earmold/Dome/CShell/SlimTip:Microsonic M2000 Clear Canal-Lock Type of Wax Guard: Dispensed By: [facility] Date of Fittin02/11/2021 Left Ear: Dwayne, Model, Color, Serial Number: Ama Pabon P70-UP SN: [id number] Color: Beige Arc Welder Apprentice Repair Warranty: 04/11/2024 Arc Welder Apprentice Loss and Damage Warranty: 04/11/2024 [facility] Service Plan: 02/11/2022 Battery Size: 675 Director Dental Services/Slim Tube: Earmold/Dome/CShell/SlimTip: Microsonic M2000 Clear Canal-Lock Type of Wax Guard: Dispensed By: [facility] Date of Fittin02/11/2021 Follow-Up Summary: Left hearing aid d/o when he puts it on, it shuts off . Found moisture in tube. Cleaned hearing aid (1), cleaned earmold (1), [place] [address] 3 units. Listening check positive. Recommendations: Recommendations: Hearing instrument follow-up or maintenance as needed. Diagnosis Code(s): Primary Diagnosis: H90.3 Bilateral Sensorineural Hearing Loss Signature: Provider: Sandeep Cook, [facility]
--- OUTSIDE RECORDS SUMMARY | 2024-10-21 11:16 | XMS_ITS | Encounter Summary ---
Author Organization [employer] Address [address] [place] [address] Care Team Providers Care Classroom Instructor Name Role Phone Myla Subramanian MD Primary Care Provide r Reason for Visit * Reason Comments Med Refill Encounter Details Date Type Department Care Team ([facility] Contact Info) Description 09/01/2023 Refill [facility] [address] [place], [place] [phone] Myla Subramanian MD [address] [place], [place] [phone] Abscess Social History Tobacco Use Types Packs/Day [...] Description 11/15/2024 10:00 AM EDT Office Visit [facility] ADULT DENTAL [address] [place] [address] Gary, Ruth [address] [place] [address] 12/16/2024 11:30 AM EST Office Visit [facility] [address] [place] [address] Myla Subramanian MD [address] [place] [address] 12/27/2024 1:30 PM EST Office Visit [facility] OPT[facility] [address] [place] [address] Tien, Farzana, OD [address] [place] [address] documented as of this encounter Visit Diagnoses Diagnosis Abscess Cellulitis and abscess of unspecified site documented in this encounter Additional Health Concerns Assessment Noted Time PHQ-9 Depression Total Score: 8 07/13/19 24 10:06 AM EDT documented as of this encounter Care Teams Classroom Instructor Relationship Specialty Start Date End Date Myla Subramanian MD [address] [place] [phone] PCP - General Internal Medicine 02/10/23 documented as of this encounter
--- OUTSIDE RECORDS SUMMARY | 2024-10-21 11:16 | XMS_ITS | Clinical Summary ---
Author Organization [employer] Address 75 [facility] 7t [place] [address] Care Team Providers Care Reverse Logistics Analyst Name Role Phone Myla Subarmanian MD Primary Care Provide r Allergies Active [...] day. 30 tablet 2 10/12/19 24 Active hydrocortisone 1 % creamIndication [...] DAY 90 tablet 1 03/25/19 25 Active triamcinolone (Kenalog) 0.1 % creamIndication [...] daily. 100 g 11 09/11/19 25 Active gabapentin (Neurontin) 300 MG capsuleIndicati ons:Pain TAKE 1 CAPSULE BY MOUTH EVERY DAY AT BEDTIME 90 capsule 1 10/02/19 25 Active lisinopril-hydr oCHLOROthiazide 20-12.5 MG tabletIndicatio ns:Essential hypertension Take 1 tablet by mouth in the morning. 90 tablet 1 10/01/19 25 Active gabapentin (Neurontin) 300 MG capsuleIndicati ons:Pain Take 1 capsule by mouth at bedtime 90 capsule 1 10/12/19 24 025 Discontinued lisinopril-hydr oCHLOROthiazide 20-12.5 MG tabletIndicatio ns:Essential hypertension TAKE 1 TABLET BY MOUTH EVERY DAY IN THE MORNING 90 tablet 1 04/08/19 25 025 Discontinued(Re order (will not trigger notification to Pharmacy)) acetaminophen (Tylenol Extra Strength) 500 MG tabletIndicatio ns:Lumbar back pain Take 1 tablet (500 mg) by mouth every 6 (six) hours if needed for moderate pain for up to 23 days. 30 tablet 2 09/11/19 25 025 Active Problems Problem Noted Date Diagnosed Date Diminished vision 09/10/2024 Gingival recession, localized 05/09/2024 Other chest pain 02/12/2024 Assessment & Plan (02/12/2024 4:17 PM EST): Cardiology referral Other atopic dermatitis 02/12/2024 Assessment & Plan (02/12/2024 4:17 PM EST): Triamcinolone and Banophen prescribed I will refer him to allergy and biomedical specialist Gastroesophageal reflux disease without esophagi tis [...] problem persist or worse come to [facility] possible referral to surgery Cognitive impairment 07/13/2023 Assessment & Plan (07/13/2023 11:03 AM EDT): I will call and find out why his PIT BOSS hours where reduced Dental plaque 06/20/2023 Teeth [...] The eGFR is based on the CKD-EPI 202 equation. To calculate the new eGFR from a previous Creatinine or Cystatin C result, go to https://www.kidney.org/professionals/ kdoqi/gfr%5Fcalculator BUN/Creatinine Ratio (calc) NOT APPLICABLE NOT APPLICABLE Sodium 135 [...] has a colonoscopy scheduled for 09/14 at [facility] [place]. Assessment & Plan (05/27/2022 9:43 AM EDT): Previous referrals: Audiology: 05/16/22 last appointment, doesn't remember name of audiology next appointment june 15. Gastro: waiting on appointment, [facility] [place] PT: waiting on appointment, [facility] [place] Optometry: Never got a call, new referral [...] Encounters Date Type Department Care Team Description 09/30/2024 Refill [facility] MEDICINE [address] [place] [address] Myla Subramanian MD Essential hypertension 09/30/2024 Refill [facility] [address] [place], [place] [phone] Myla Subramanian MD Pain 09/10/2024 11:30 AM EDT Office Visit [facility] MED[facility]INE [address] [place], [place] [phone] Myla Subramanian MD Prediabetes; Lumbar back pain; Chronic right shoulder pain; Essential hypertension; Gastroesophageal reflux disease, unspecified whether esophagitis present; Diminished vision 09/10/2024 Travel 09/10/2024 Telephone [facility] MED[facility]INE [address] [place], [place] [phone] Myla Subramanian MD Chart Prep from Last [...] Description 11/15/2024 10:00 AM EDT Office Visit [facility] ADULT DENTAL [address] [place] [address] Gary, Ruth [address] [place] [address] 12/16/2024 11:30 AM EST Office Visit [facility] MEDICINE [address] [place] [address] Myla Subramanian MD [address] [place] [address] 12/27/2024 1:30 PM EST Office Visit [facility] OPTOMETRY [address] [place] [address] Tien, Farzana, OD [address] [place] [address] Health Maintenance Due Date Last Done Comments Anal Pap 1960 CT Colonography 1960 Colonoscopy 1960 FIT 1960 Sigmoidoscopy 1960 Hepatitis A Vaccines (1 of 2 - Risk 2-dose series) 02/04/1979 Pneumococcal Vaccine: 50+ Years (1 of 1 - PCV) 02/04/2010 Hepatitis B Vaccines (1 of 3 - Risk 3-dose series) 2020 Depression Screening 07/12/2024 07/13/2023, 07/13/19 24 COVID-19 Vaccine ( season) 2024 03/03/2022, 01/28/2021, 07/17/2020, Additional history exists Influenza Vaccine (#1) 2024 , 04/10/2023, 11/05/2021, [...] Media Lot # [id number] Lot# Expiration Date Blood 09/10/2024 11:3 3 AM EDT Myla Sena MD POINT OF CARE TEST EN TER/EDIT ORDERABLES Final Result * POCT Glucose (09/10/2024 11:33 AM EDT) Glucose Blood, POC 110 60 - 200 mg/dL QC Media Lot # [id number] Lot# Expiration Date [id number] Blood Capillary blood specimen / Unknown 09/10/2024 11:33 AM EDT us Myla Sena MD POINT OF CARE TEST EN TER/EDIT ORDERABLES Final Result * (ABNORMAL) Lipid Panel, Standard (05/14/2024 8:12 AM EDT) Triglycerides 66 <150 mg/dL [facility] Comment:Desirable Triglyceri de: less than 150 mg/dLBorderline High Triglyceride 150-199 mg/dLHigh Triglyceride: 200-499 mg/dLVery High Triglyceride: greater than or equal to 5OO mg/dL Cholesterol 199 <200 mg/dL [facility] Comment:Desirable Cholestero l: less than 200 mg/dLBorderline High Cholesterol: 200-239 mg/dLHigh Cholesterol: greater than 239 mg/dL LDL Cholesterol Calculated 115(H) <100 mg/dL [facility] Comment:Desirable LDL: less than 100 mg/dLNear Optimal/Above Optimal LDL: 110- 129 mg/dLBorderline High LDL: 130-159 mg/dLHigh LDL: 160-189 mg/dLVery High LDL: greater than or equal to 190 mg/dL HDL Cholesterol 71 >40 mg/dL [facility] Comment:Desirable HDL: great er than 40 mg/dL Note: This HDL assay may give artificially low results in patients with liver disease. Blood Venous blood specimen / Unknown 05/14/2024 8:12 AM EDT 05/14/2024 11:21 AM EDT us Myla Sena MD LAB BLOOD ORDERABLES Final Result [facility] [address] [place] [phone] * Cologuard?? colon cancer screening (10/23/2023 7:07 AM EDT) Cologuard Result Negative Negative 10/26/19 24 10:15 PM EDT [facility] (CLIA #:[id number]) Comment: NEGATIVE TEST RESULT. A negative Cologuard [...] (Nelia Huang al, N Engl J Med 2014;370(14):8764-7647) The normal value (reference range) for this assay is negative. COLOGUARD RE-SCREENING RECOMMENDATION: Periodic colorectal cancer screening is an important part of preventive healthcare for asymptomatic individuals at average risk for colorectal cancer. Following a negative Cologuard result, the [place] Cancer Society and U.S. Multi-Society Task Force screening guidelines recommend a Cologuard re-screening interval of 3 years. References: [place] [employer] Guideline for Colorectal Cancer Screening: https://www.cancer.org/cancer/stjlq-snnwhv-sdpgol/ggzcrpslc-dzulmhxsk-lulrbeo/ac s-rec ommendations.html.; José DK, Bryce CR, Ashley BhaktaK, Colorectal Cancer Screening: Recommendations for Physicians and Patients from the U.S. Multi-Society Task Force on Colorectal Cancer Screening , Am J Gastroenterology 2017; 112:0953-9271. TEST DESCRIPTION: Composite algorithmic analysis of stool [...] (Nelia Huang al, N Engl J Med 2014;370(14):8686-9654.) Cologuard may produce a false negative or false positive result (no colorectal cancer or precancerous polyp present at colonoscopy follow up). A negative Cologuard test result does not guarantee the absence of CRC or advanced adenoma (pre-cancer). The current Cologuard screening interval is every 3 years. ([place] [employer] Society and U.S. Multi-Society Task Force). Cologuard performance data in a 10,000 patient pivotal study using colonoscopy as the reference method can be accessed at the following location: www.Secure-[employer].Shopmium/results. Additional description of the Cologuard test process, warnings and precautions can be found at www.vMobo.Shopmium. Stool specimen (specimen) 10/23/2023 7:07 AM EDT 10/24/2023 2:06 PM EDT Myla Sena MD LAB MOLECULAR DIAGNOS TICS ORDERABLES Final Result [facility] (CLIA #:[id number]) [place] [address], * Hepatitis C Antibody with Reflex to HCV, RNA, Quantitative, Real-Time PCR (07/22/2022 9:31 AM EDT) Hepatitis C Antibody NON-REACT DEONDRE NON-REACT DEONDRE [facility] Index 0.07 <1.00 [facility] Comment: HCV antibody was non-reactive. There is no laboratory evidence of HCV infection. In most cases, no further action is required. However, if recent HCV exposure is suspected, a test for HCV RNA (test code 88190) is suggested. For additional information please refer to http://education.[employer].Shopmium/faq/OQZ62m3 (This link is being provided for informational/ educational purposes only.) Blood Venous blood specimen / Unknown 07/22/2022 9:31 AM EDT 07/22/2022 9:31 AM EDT Narrative [facility] - 07/23/2022 12:54 AM EDT FASTING:NO FASTING: NO Alfonso Cuello AGNP LAB BLOOD ORDERABLES Final Res ult Performing Organization Address City/[facility]/ZIP Co de Phone Number [facility] [address] [facility], [place] [address] [facility] [address] [place] [address] * HIV 1/2 ANTIGEN/ANTIBODY,FOURTH GENERATION W/RFL (08/04/2021 10:05 AM EDT) [facility] HIV-1/2 ANTIGEN AND ANTIBODIES, 4TH GENERATION W/ REFLEX NON-REACT DEONDRE NON-REACT DEONDRE [facility] Comment: HIV-1 antigen and HIV-1/HIV-2 [...] purpose. For additional information please refer to http://education.[employer].Shopmium/faq/POD326 (This link is being provided for informational/ educational purposes only.) The performance of this assay has not been clinically validated in patients less than 2 years old. 08/04/2021 10:0 5 AM EDT us Tresa Paz UPSETTING MACHINE OPERATOR LAB BLOOD ORDERABLES Final Resu lt [facility] [address] from Last 3 Months or Most Recently Relevant to Health Maintenance Insurance [facility] STANDARD MEDICARE D[facility]AL-[facility] [place] [id number] Care Teams Reverse Logistics Analyst Relationship Specialty Start Date End Date Myla Subramanian MD [address] [place] [address] PCP - General Internal Medicine 02/10/23
--- OUTSIDE RECORDS SUMMARY | 2024-10-21 11:16 | XMS_ITS | Encounter Summary ---
Author Organization [email or web address] Address [address] [facility] [address] 7[address] [place] [address] Care Team Providers Care In Service Coordinator Name Role Phone Myla Subramanian MD Primary Care Provide r Reason for Visit * Reason Comments Med Refill Encounter Details Date Type Department Care Team ([facility] Contact Info) Description 07/13/2023 Refill [facility] MEDICINE [address] [place] [address] Sarah Sargent FNP [address] [place] [address] Essential hypertension Social History Tobacco Use Types [...] Description 11/15/2024 10:00 AM EDT Office Visit [facility] ADULT DENTAL [address] [place], [place] [phone] Gary, Ruth [address] [place] [address] 12/16/2024 11:30 AM EST Office Visit [facility] MEDICINE [address] [place] [address] Myla Subramanian MD [address] [place] [address] 12/27/2024 1:30 PM EST Office Visit [facility] OPTOMETRY [address] [place], [place] [phone] Farzana Chauhan, OD [address] [place] [address] documented as of this encounter Visit Diagnoses Diagnosis Essential hypertension Unspecified essential hypertension documented in this encounter Additional Health Concerns Assessment Noted Time PHQ-9 Depression Total Score: 8 07/13/19 24 10:06 AM EDT documented as of this encounter Care Teams In Service Coordinator Relationship Specialty Start Date End Date Myla Subramanian MD [address] [place], [place] [phone] PCP - General Internal Medicine 02/10/23 documented as of this encounter
--- OUTSIDE RECORDS SUMMARY | 2024-10-21 11:18 | XMS_ITS | Encounter Summary ---
Author Organization [employer] Address [address] [facility] 7t [place] [address] Care Team Providers Care Dredge Pipe Installer Name Role Phone Myla Subramanian MD Primary Care Provide r Reason for Visit * Reason Onset Date Comments increase in UNDERLINER hours 04/18/2023 Spoke with Uma at [facility] to discuss Patient request for a letter from Provider to increase his UNDERLINER hours. Presently he has 9 hours per week. Uma stated that under [facility] program the maximum hours is 9 per week. If patient feels he needs more there needs to be a reason for the increase, patient saw PCP in March and did not mention that he needs more UNDERLINER hours. Uma will contact patient to see if there is a need and if yes he could possibly be referred to [employer] for their UNDERLINER program. Encounter Details Date Type Department Care Team ([facility] st Contact Info) Description 04/18/2023 Telephone [facility] MEDICINE [address] [place], [place] [phone] Myla Subramanian MD [address] [place], [place] [phone] increase in UNDERLINER hours (Spoke with Uma at [facility] to discuss Patient request for a letter from Provider to increase his UNDERLINER hours. Presently he has 9 hours per week. Uma stated that under [facility] program the maximum hours is 9 per week. If patient feels he needs more there needs to be a reason for the increase, patient saw PCP in March and did not mention that he needs more UNDERLINER hours. Uma will contact patient to see if there is a need and if yes he could possibly be referred to [employer] for their UNDERLINER program. ) Social History Tobacco Use Types [...] Not difficult at all 07/13/2023 10:06 AM Haim Francis MA * Over the last 2 weeks, how often have you been bothered by any of the following problems? Question Answer Date of Assessment Author Feeling nervous, anxious, or on edge 0 09/10/2024 11:35 AM CELESTET Lakisha Godoy MA Not being able to stop or co ntrol worrying 0 09/10/2024 11:35 AM EDT Lakisha Godoy MA Worrying too much about diff erent things 0 09/10/2024 11:35 AM Lakisha Dobson MA Trouble relaxing 0 09/10/2024 11:35 AM CELESTET Lakisha Godoy MA Being so restless that it is hard to sit still 0 09/10/2024 11:35 AM Lakisha Dobson MA Becoming easily annoyed or irritable 0 09/10/2024 11:35 AM EDT Lakisha Godoy MA Feeling afraid as if somethi ng awful might happen 0 09/10/2024 11:35 AM Lakisha Dobson MA HUGO-7 Total Score 0 09/10/2024 11:35 AM Lakisha Dobson MA * Over the past 2 weeks, how often have you been bothered by any of the following problems? Question Answer Date of Assessment Author Little interest or pleasure in doing things Several days 07/13/2023 10:06 AM Aida Francis MA Feeling down, depressed, or hopeless Several days 07/13/2023 10:06 AM Haim Francis MA Trouble falling or staying asleep, or sleeping too much Nearly every day 07/13/2023 10:06 AM Haim Francis MA Feeling tired or having little energy Several days 07/13/2023 10:06 AM Haim Francis MA Poor appetite or overeating Several days 07/13/2023 10:06 AM Haim Francis MA Feeling bad about yourself - or that you are a failure or have let yourself or your family down Not at all 07/13/2023 10:06 AM EDT Haim Collier MA Trouble concentrating on things, such as reading the newspaper or watching television Not at all 07/13/2023 10:06 AM EDT Haim Collier MA Moving or speaking so slowly that other people could have noticed? Or the opposite - being so fidgety or restless that you have been moving around a lot more than usual. Several days 07/13/2023 10:06 AM EDT Haim Collier MA Thoughts that you would be better off or hurting yourself in some way Not at all 07/13/2023 10:06 AM EDT Haim Collier MA Patient Health Questionnaire-9 Score 8 07/13/2023 10:06 AM EDT Wendi Collier MA documented as of this encounter Plan of Treatment Upcoming Encounters Date Type Department Care Team (Late st Contact Info) Description 11/15/2024 10:00 AM EDT Office Visit [facility] ADULT DENTAL [address] [place] [address] Gary, Ruth [address] [place] [address] 12/16/2024 11:30 AM EST Office Visit [facility] MEDICINE [address] [place] [address] Myla Subramanian MD [address] [place] [address] 12/27/2024 1:30 PM EST Office Visit [facility] OPTOMETRY [address] [place] [address] Farzana Chauhan OD [address] [place] [address] documented as of this encounter Visit Diagnoses Not on filedocumented in this encounter Additional Health Concerns Assessment Noted Time PHQ-9 Depression Total Score: 6 05/28/19 23 9:06 AM EDT documented as of this encounter Care Teams Dredge Pipe Installer Relationship Specialty Start Date End Date Myla Subramanian MD [address] [place] [address] PCP - General Internal Medicine 02/10/23 documented as of this encounter
--- OUTSIDE RECORDS SUMMARY | 2024-10-21 11:18 | XMS_ITS | Encounter Summary ---
Author Organization [employer] Address [address] [facility] 7t [place] [address] Care Team Providers Care Office Services Specialist Name Role Phone Alfonso Cuello Primary Care Provider Unavail Sarah Suárez Primary Care Provider [phone] Myla Subramanian MD Primary Care Provide r Encounter Details Date Type Department Care Team (Late st Contact Info) Description 09/13/2022 Telephone [facility] MEDICINE [address] [place] [address] Alfonso Cuello AGNP Social History Tobacco Use [...] from Emerita Diego RN- Will forward to [facility] nurse to as I am currently working other areas at [facility]. Tc from [facility] requesting status on physician summary form. Pt is currently on hold for [facility] andform needs to be signed by PCP for pt services to be covered. Please contact [facility] at [phone] * Telephone Encounter - Mayra Dandre - 09/13/2022 12:39 PM EDT Tc from [facility] requesting status on physician summary form. Pt is currently on hold for [facility] andform needs to be signed by PCP for pt services to be covered. Please contact [facility] at [phone] documented in this encounter Plan of Treatment Upcoming Encounters Date Type Department Care Team (Late st Contact Info) Description 11/15/2024 10:00 AM EDT Office Visit [facility] ADULT DENTAL [address] [place] [address] Ruth Vega [address] [place] [address] 12/16/2024 11:30 AM EST Office Visit [facility] MEDICINE [address] [place] [address] Myla Subramanian MD [address] [place] [address] 12/27/2024 1:30 PM EST Office Visit [facility] OPTOMETRY [address] [place] [address] Tien, Farzana, OD [address] [place] [address] documented as of this encounter Visit Diagnoses Not on filedocumented in this encounter Additional Health Concerns Assessment Noted Time PHQ-9 Depression Total Score: 6 05/28/19 23 9:06 AM EDT documented as of this encounter Care Teams Office Services Specialist Relationship Specialty Start Date End Date Alfonso Cuello AGNP PCP - General Family Medicine 11/16/21 10/27/22 Sarah Sargent FNP [address] [place] [address] PCP - General Family Medicine 10/28/22 02/09/23 Myla Subramanian MD [address] [place] [address] PCP - General Internal Medicine 02/10/23 documented as of this encounter
--- OUTSIDE RECORDS SUMMARY | 2024-10-21 11:18 | XMS_ITS | Encounter Summary ---
Author Organization [employer] Address [address] [facility] 7t [place] [address] Care Team Providers Care Wood Router Name Role Phone Alfonso Cuello AGNLogan Primary Care Provider Unavail Sarah Suárez Primary Care Provider [phone] Myla Subramanian MD Primary Care Provide r Encounter Details Date Type Department Care Team (Late st Contact Info) Description 01/05/2022 Abstract [facility] ADULT DENTAL [address] [place] [address] Dental, Provider, DDS Social History Tobacco Use [...] Description 11/15/2024 10:00 AM EDT Office Visit [facility] ADULT DENTAL [address] [place] [address] Ruth Vega [address] [place] [address] 12/16/2024 11:30 AM EST Office Visit [facility] MEDICINE [address] [place] [address] Myla Subramanian MD [address] [place] [address] 12/27/2024 1:30 PM EST Office Visit [facility] OPTOMETRY [address] [place] [address] Farzana Chauhan, OD [address] [place] [address] documented as of this encounter Procedures Procedure [...] on filedocumented in this encounter Care Teams Wood Router Relationship Specialty Start Date End Date Alfonso Cuello AGNP PCP - General Family Medicine 11/16/21 10/27/22 Sarah Sargent FNP [address] [place] [address] PCP - General Family Medicine 10/28/22 02/09/23 Mlya Subramanian MD [address] [place] [address] PCP - General Internal Medicine 02/10/23 documented as of this encounter
--- OUTSIDE RECORDS SUMMARY | 2024-10-21 11:18 | XMS_ITS | Encounter Summary ---
Author Organization [employer] [facility] Address 75 [facility] 7t [place] [address] Care Team Providers Care Mud Jack Nozzleman Name Role Phone Alfonso Cuello AGNLogan Primary Care Provider Unavail Sarah Suárez Primary Care Provider [phone] Myla Subramanian MD Primary Care Provide r Encounter Details Date Type Department Care Team ([facility] Contact Info) Description 04/15/2022 Abstract [facility] ADULT DENTAL [address] [place] [address] Rowena Villatoro, DDS [address] [place] [address] Social History Tobacco Use Types Packs/Day Years [...] Upcoming Encounters Date Type Department Care Team ([facility] Contact Info) Description 11/15/2024 10:00 AM EDT Office Visit [facility] ADULT DENTAL [address] [place] [address] Ruth Vega [address] [place] [address] 12/16/2024 11:30 AM EST Office Visit [facility] MEDICINE [address] [place] [address] Myla Subramanian MD [address] [place] [address] 12/27/2024 1:30 PM EST Office Visit [facility] OPTOMETRY [address] [place] [address] Tien, Farzana, OD [address] [place] [address] documented as of this encounter Visit Diagnoses Not on filedocumented in this encounter Care Teams Mud Jack Nozzleman Relationship Specialty Start Date End Date Alfonso Cuello AGNP PCP - General Family Medicine 11/16/21 10/27/22 Sarah Sargent FNP [address] [place] [address] PCP - General Family Medicine 10/28/22 02/09/23 Myla Subramanian MD [address] [place] [address] PCP - General Internal Medicine 02/10/23 documented as of this encounter
== END 2024-10-21 09:46 | disposition home or self-care (01) ==
LOC: HO.HAP 09:45
PROVIDERS: Visit Provider Emergency Medicine
DX: Z46.1 Encounter for fitting and adjustment of hearing aid (principal); H90.3 Sensorineural hearing loss, bilateral
CPT/HCPCS: 92592; 99499

== ENCOUNTER 2024-12-13 12:42 | Outpatient (REF) | payer MEDICARE, MEDICAID, SELFPAY ==
--- OUTSIDE RECORDS SUMMARY | 2024-12-13 13:51 | XMS_ITS | Clinical Summary ---
Author Organization [employer] Address [address] [facility] 7t [place] [address] Care Team Providers Care Outside Sales Inspector Name Role Phone Myla Subramanian MD Primary Care Provide r Allergies Active Allergy Reactions Criticality Noted Date Comments Aspirin 01/13/2022 Penicillin G 07/20/2020 Other reaction(s): Hives / Skin Rash Squid Oil 04/10/2023 Medications cetirizine (ZyrTEC) 10 MG tabletIndications :Atopic dermatitis, unspecified type TAKE 1 TABLET BY MOUTH EVERY DAY 90 tablet 1 5 Active triamcinolone (Kenalog) [...] times daily. 100 g 11 5 Active gabapentin (Neurontin) 300 MG capsuleIndication s:Pain TAKE 1 CAPSULE BY MOUTH EVERY DAY AT BEDTIME 90 capsule 1 5 Active lisinopril-hydroC HLOROthiazide 20-12.5 MG tabletIndications :Essential hypertension Take 1 tablet by mouth in the morning. 90 tablet 1 5 Active Active Problems Problem Noted Date Diagnosed Date Diminished vision 09/10/2024 Gingival recession, localized 05/09/2024 Other chest pain 02/12/2024 Assessment & Plan (02/12/2024 4:17 PM EST): Cardiology referral Other atopic dermatitis 02/12/2024 Assessment & Plan (02/12/2024 4:17 PM EST): Triamcinolone and Banophen prescribed I will refer him to allergy and cycle specialist Gastroesophageal reflux disease without esophagi tis [...] If problem persist or worse come to [facility] possible referral to surgery Cognitive impairment 07/13/2023 Assessment & Plan (07/13/2023 11:03 AM EDT): I will call and find out why his [employer] hours where reduced Dental plaque 06/20/2023 Teeth [...] has a colonoscopy scheduled for 09/14 at [facility]. Assessment & Plan (05/27/2022 9:43 AM EDT): Previous referrals: Audiology: 05/16/22 last appointment, doesn't remember name of audiology next appointment june 15. Gastro: waiting on appointment, [facility] PT: waiting on appointment, [facility] Optometry: Never got a [...] Encounters Date Type Department Care Team Description 12/10/2024 Telephone [facility] [address] [place] [address] Myla Subramanian MD telephone call 12/09/2024 Patient Outreach [facility] [address] [place] [address] Myla Subramanian MD Pre-visit Planning (LVM ) 12/09/2024 Telephone [facility] ADULT DENTAL [address] [place] [phone] Roche-Matos, Rowena, DDS 12/03/2024 Outside Procedure [facility] [address] [place] [address] Manuel Chauhann, OD Presbyopia (Primary Dx) 12/02/2024 2:00 PM EDT Office Visit [facility] OPT[facility] [address] [place] [address] Manuel Chauhann, OD Hyperopia of both eyes (Primary Dx) 11/15/2024 10:15 AM EDT Office Visit [facility] ADULT DENTAL [address] [place] [address] GaryRuth Dental plaque (Primary Dx); Teeth missing 10/25/2024 3:00 PM EDT Office Visit [facility] OPTOMETRY [address] [place] [address] Tien, Farzana, OD Combined forms of age-related cataract of both eyes (Primary Dx); Suspicious optic nerve cupping of both eyes; Presbyopia 10/25/2024 Travel 09/30/2024 Refill [facility] [address] [place] [address] Myla Subramanian MD Essential hypertension 09/30/2024 Refill [facility] [address] [place] [address] Myla Subramanian MD Pain from Last 3 Months Immunizations Immunization Administration [...] Sign Reading Time Taken Comments Blood Pressure 124/72 11/15/2024 10:20 AM EDT Pulse 86 09/10/2024 11:32 AM [...] Care Team (Late st Contact Info) Description 12/16/2024 11:30 AM EST Office Visit [facility] [address] [place] [address] Myla Subramanian MD [address] [place] [address] 01/03/2025 9:30 AM EST Office Visit [facility] ADULT DENTAL [address] [place] [address] RocheViancaMatosRowena montoya, DDS [address] [place] [address] 05/22/2025 10:15 AM EDT Office Visit [facility]ULT D[facility] [address] [place] [address] Howard Vegaaris [address] [place] [address] Health Maintenance Due Date Last Done Comments [...] Dental Oral Exam 11/10/2024 05/09/2024, , 02/23/2022 SDOH Screening 05/02/2025 05/02/2024 Dental X-Ray: Bitewings 05/10/2025 05/10/19 25, 06/20/2023, 02/23/2022 Dental Prophylaxis 05/17/2025 11/15/2024, 0 05/09/2024, 06/20/2023, Additional history exists Alcohol/Substance Use Screening 09/10/2025 09/10/2024 Diabetes: Hemoglobin A1C 09/10/2025 025, 04/10/2023, 08/31/2022, Additional history exists Disability Screening 09/10/2025 09/10/2024 Tobacco Screening 10/28/2025 10/28/2024 Colorectal Cancer Screening 10/22/2026 FIT DNA/Cologuard 10/22/2026 10/23/2023 Dental X-Ray: Full Mouth 05/11/2027 05/09/2024, 1002/2020 Lipid Panel 05/14/2029 05/14/2024, 03/16, 11/24/2021, Additional [...] Procedure Name Priority Date/Time Associated Diagnosis Comments ORAL HYGIENE INSTRUCTIONS Routine 11/15/2024 10:15 AM EDT Dental plaque Teeth missing CASE PRESENTATION, DETAILED AND EXTENSIVE TREATMENT PLANNING Routine 11/15/2024 10:15 AM EDT Dental plaque Teeth missing PROPHYLAXIS - ADULT Routine 11/15/2024 1 0:15 AM EDT Dental plaque OCT, OPTIC NERVE - OU - BOTH EYES Routine 10/25/2024 3:00 PM EDT Suspicious optic nerve cupping of both eyes POCT GLYCATED HEMOGLOBIN, TOTAL Routine 09/10/2024 11:33 AM EDT Prediabetes LIPID PANEL, STANDARD Routine 05/14/2024 8:12 AM EDT Essential hypertension INTRAORAL - COMPLETE SERIES OF RADIOGRAPHIC IMAGES [...] Recently Relevant to Health Maintenance Results * OCT, Optic Nerve - OU - Both Eyes (10/25/2024 3:00 PM EDT) Farzana Barfield, OD - 10/28/2024 2:59 PM EDT Images from the original result were not included. OCT OPTIC NERVE INTERPRETATION Optical Coherence Tomography Interpretation Report Test Details: Measurements: OD OS C/D Horizontal 0.79 0.77 C/D Vertical 0.76 0.74 Disc area 2.22 mm 2 2.48 mm 2 RNFL Average 94 microns 88 microns *Poor scans both eyes* Test findings: OD: Normal RNFL thickness in all quadrants OS: Borderline RNFL thinning in inferior and temporal quadrants, normal RNFL thickness in superior and nasal quadrants Impression and Plan: Low suspicion for glaucoma at this time. Will monitor in 1 year with a complete eye exam and repeat OCT. Farzana Chauhan OD OPHTH TOMOGRAPHY Final Result * (ABNORMAL) POCT HGB A1C (09/10/2024 11:33 AM EDT) Hemoglobin A1C 5.8(A) 4.0 - 5.7 % QC Media Lot # [id number] Lot# Expiration Date [id number] Blood 09/10/2024 11:3 3 AM EDT Myla Sena MD POINT OF CARE TEST EN TER/EDIT ORDERABLES Final Result * (ABNORMAL) Lipid Panel, Standard (05/14/2024 8:12 AM EDT) Triglycerides 66 <150 mg/dL [facility] Comment:Desirable Triglyceri de: less than 150 mg/dLBorderline High Triglyceride 150-199 mg/dLHigh Triglyceride: 200-499 mg/dLVery High Triglyceride: greater than or equal to 5OO mg/dL Cholesterol 199 <200 mg/dL [facility] Comment:Desirable Cholestero l: less than 200 mg/dLBorderline High Cholesterol: 200-239 mg/dLHigh Cholesterol: greater than 239 mg/dL LDL Cholesterol Calculated 115(H) <100 mg/dL [facility] Comment:Desirable LDL: less than 100 mg/dLNear Optimal/Above Optimal LDL: 110- 129 mg/dLBorderline High LDL: 130-159 mg/dLHigh LDL: 160-189 mg/dLVery High LDL: greater than or equal to 190 mg/dL HDL Cholesterol 71 >40 mg/dL [facility] Comment:Desirable HDL: great er than 40 mg/dL Note: This HDL assay may give artificially low results in patients with liver disease. Blood Venous blood specimen / Unknown 05/14/2024 8:12 AM EDT 05/14/2024 11:21 AM EDT Myla Sena MD LAB BLOOD ORDERABLES Final Result [facility] [address] [place] [address] [phone] * Cologuard?? colon cancer screening (10/23/2023 7:07 AM EDT) Cologuard Result Negative Negative 10/26/19 24 10:15 PM EDT [facility] (CLIA #:[id number]) Comment: NEGATIVE TEST RESULT. A negative Cologuard [...] Robin et al, N Engl J Med 2014;370(14):6474-2498) The normal value (reference range) for this assay is negative. COLOGUARD RE-SCREENING RECOMMENDATION: Periodic colorectal cancer screening is an important part of preventive healthcare for asymptomatic individuals at average risk for colorectal cancer. Following a negative Cologuard result, the [place] Cancer Society and U.S. Multi-Society Task Force screening guidelines recommend a Cologuard re-screening interval of 3 years. References: [place] [employer] Guideline for Colorectal Cancer Screening: https://www.cancer.org/cancer/ylauw-rertrb-ujfswl/dvljohqfk-zmghvkkez-pycgwdm/ac s-rec ommendations.html.; José DK, Bryce FRASER, Ashley BhaktaK, Colorectal Cancer Screening: Recommendations for Physicians and Patients from the U.S. Multi-Society Task Force on Colorectal Cancer Screening , Am J Gastroenterology 2017; 112:8928-5174. TEST DESCRIPTION: Composite algorithmic analysis of stool [...] (Nelia Huang al, N Engl J Med 2014;370(14):5537-5069.) Cologuard may produce a false negative or false positive result (no colorectal cancer or precancerous polyp present at colonoscopy follow up). A negative Cologuard test result does not guarantee the absence of CRC or advanced adenoma (pre-cancer). The current Cologuard screening interval is every 3 years. ([place] [employer] Society and U.S. Multi-Society Task Force). Cologuard performance data in a 10,000 patient pivotal study using colonoscopy as the reference method can be accessed at the following location: www.adQ/results. Additional description of the Cologuard test process, warnings and precautions can be found at www.TripAdvisorrd.RocketHub. Stool specimen (specimen) 10/23/2023 7:07 AM EDT 10/24/2023 2:06 PM EDT Myla Sena MD LAB MOLECULAR DIAGNOS TICS ORDERABLES Final Result [facility] (CLIA #:[id number]) [place] [address], * Hepatitis C Antibody with Reflex to HCV, RNA, Quantitative, Real-Time PCR (07/22/2022 9:31 AM EDT) Hepatitis C Antibody NON-REACT DEONDRE NON-REACT DEONDRE [facility] Index 0.07 <1.00 [facility] Comment: HCV antibody was non-reactive. There is no laboratory evidence of HCV infection. In most cases, no further action is required. However, if recent HCV exposure is suspected, a test for HCV RNA (test code 91352) is suggested. For additional information please refer to http://education.Spiceworks.RocketHub/faq/EWY73l2 (This link is being provided for informational/ educational purposes only.) Blood Venous blood specimen / Unknown 07/22/2022 9:31 AM EDT 07/22/2022 9:31 AM EDT Narrative [facility] - 07/23/2022 12:54 AM EDT FASTING:NO FASTING: NO us Alfonso Cuello DIANEP LAB BLOOD ORDERABLES Final Res ult Performing Organization Address [facility]/ZIP Co de Phone Number [facility] [address], [place] [address] [email or web address] [facility] [address] [place] [address] * HIV 1/2 ANTIGEN/ANTIBODY,FOURTH GENERATION W/RFL (08/04/2021 10:05 AM EDT) [facility] HIV-1/2 ANTIGEN AND ANTIBODIES, 4TH GENERATION W/ REFLEX NON-REACT DEONDRE NON-REACT DEONDRE [facility] Comment: HIV-1 antigen and HIV-1/HIV-2 [...] purpose. For additional information please refer to http://education.Spiceworks.RocketHub/faq/XVZ153 (This link is being provided for informational/ educational purposes only.) The performance of this assay has not been clinically validated in patients less than 2 years old. 08/04/2021 10:0 5 AM EDT us Tresa Paz [facility] LAB BLOOD ORDERABLES Final Resu lt [facility] [address] from Last 3 Months or Most Recently Relevant to Health Maintenance Insurance [facility] STANDARD MEDICARE DENTAL-[facility] MEDICAID STAND ADULT [address] [place] [phone] Care Teams Outside Sales Inspector Relationship Specialty Start Date End Date Myla Subramanian MD [address] [place] [address] PCP - General Internal Medicine 02/10/23
--- OUTSIDE RECORDS SUMMARY | 2024-12-13 13:53 | XMS_ITS | Encounter Summary ---
Author Organization [facility] [facility] Address [address] [facility] 7t [place] [address] Care Team Providers Care Senior Technical Program Manager Name Role Phone Alfonso Cuello AGNLogan Primary Care Provider Unavail Sarah Suárez Primary Care Provider [phone] Myla Subramanian MD Primary Care Provide r Encounter Details Date Type Department Care Team ([facility] Contact Info) Description 04/15/2022 Abstract [facility]ULT [facility] [address] [place] [address] Rowena Villatoro, DDS [address] [place] [address] Social History Tobacco Use Types Packs/Day Years [...] Upcoming Encounters Date Type Department Care Team ([facility] Contact Info) Description 12/16/2024 11:30 AM EST Office Visit [facility] [address] [place] [address] Myla Subramanian MD [address] [place], [place] [phone] 01/03/2025 9:30 AM EST Office Visit [facility]ULT [facility] [address] [place] [address] Roche-Matos, Rowena, DDS [address] [place] [address] 05/22/2025 10:15 AM EDT Office Visit [facility] [address] [place] [address] Howard Vegaaris [address] [place] [address] documented as of this encounter Visit Diagnoses Not on filedocumented in this encounter Care Teams Senior Technical Program Manager Relationship Specialty Start Date End Date Alfonso Cuello AGNP PCP - General Family Medicine 11/16/21 10/27/22 Sarah Sargent FNP [address] [place] [address] PCP - General Family Medicine 10/28/22 02/09/23 Myla Subramanian MD [address] [place] [address] [phone] PCP - General Internal Medicine 02/10/23 documented as of this encounter
--- OUTSIDE RECORDS SUMMARY | 2024-12-13 13:53 | XMS_ITS | Encounter Summary ---
Author Organization [employer] Address [address] [facility] [address] 7[address] [place] [address] Care Team Providers Care Senior Packaging Engineer Name Role Phone Myla Subramanian MD Primary Care Provide r Encounter Details Date Type Department Care Team ([facility] Contact Info) Description 12/09/2024 Telephone [facility] ADULT DENTAL [address] [place] [address] Rowena Villatoro, DDS [address] [place] [address] Social History Tobacco Use Types Packs/Day Years [...] encounter Miscellaneous Notes * Telephone Encounter - Steven Gayle - 12/09/2024 1:14 PM EDT lm with the new appointmetn day and time documented in this encounter Plan of Treatment Upcoming Encounters Date Type Department Care Team (Late st Contact Info) Description 12/16/2024 11:30 AM EST Office Visit [facility] MED[facility] [address] [place] [address] Myla Subramanian MD [address] [place] [address] 01/03/2025 9:30 AM EST Office Visit [facility] ADULT DENTAL [address] [place] [address] Rowena Villatoro DDS [address] [place] [address] 05/22/2025 10:15 AM EDT Office Visit [facility] ADULT DENTAL [address] [place] [address] Ruth Vega [address] [place] [address] documented as of this encounter Visit Diagnoses Not on filedocumented in this encounter Additional Health Concerns Assessment Noted Time PHQ-9 Depression Total Score: 8 07/13/19 24 10:06 AM EDT documented as of this encounter Care Teams Senior Packaging Engineer Relationship Specialty Start Date End Date Myla Subramanian MD [address] [place] [address] PCP - General Internal Medicine 02/10/23 documented as of this encounter
--- OUTSIDE RECORDS SUMMARY | 2024-12-13 13:53 | XMS_ITS | Encounter Summary ---
Author Organization [employer] Address [address] 7[address] [place] [address] Care Team Providers Care Weather Strip Installer Name Role Phone Myla Subramanian MD Primary Care Provide r Reason for Visit * Reason Comments Med Refill Encounter Details Date Type Department Care Team ([facility] Contact Info) Description 07/13/2023 Refill [facility] [address] [place] [address] Sarah Sargent FNP [address] [place] [address] Essential hypertension Social History Tobacco Use Types [...] awful might happen 0 07/13/2023 10:06 AM Haim Francis MA HUGO-7 Total Score 4 07/13/2023 10:06 AM Haim Francis MA * Over the past 2 weeks, how often have you been bothered by any of the following problems? Question Answer Date of Assessment Author Little interest or pleasure in doing things Several days 07/13/2023 10:06 AM Aida Francis MA Feeling down, depressed, or hopeless Several days 07/13/2023 10:06 AM CELESTET Haim Collier MA Trouble falling or staying [...] down Not at all 07/13/2023 10:06 AM Haim Francis MA Trouble concentrating on things, such as reading the newspaper or watching television Not at all 07/13/2023 10:06 AM Haim Francis MA Moving or speaking so slowly that [...] Health Questionnaire-9 Score 8 07/13/2023 10:06 AM Wendi Francis MA documented as of this encounter Plan of Treatment Upcoming Encounters Date Type Department Care Team (Late st Contact Info) Description 12/16/2024 11:30 AM EST Office Visit [facility] MED[facility]INE [address] [place] [address] Myla Subramanian MD [address] [place] [address] 01/03/2025 9:30 AM EST Office Visit [facility] ADULT DENTAL [address] [place] [address] Kaley-MatosRowena boyd, DDS [address] [place] [address] 05/22/2025 10:15 AM EDT Office Visit [facility] ADULT DENTAL [address] [place] [address] Ruth Vega [address] [place] [address] documented as of this encounter Visit Diagnoses Diagnosis Essential hypertension Unspecified essential hypertension documented in this encounter Additional Health Concerns Assessment Noted Time PHQ-9 Depression Total Score: 8 07/13/19 24 10:06 AM EDT documented as of this encounter Care Teams Weather Strip Installer Relationship Specialty Start Date End Date Myla Subramanian MD [address] [place] [address] PCP - General Internal Medicine 02/10/23 documented as of this encounter
--- OUTSIDE RECORDS SUMMARY | 2024-12-13 13:53 | XMS_ITS | Encounter Summary ---
Author Organization [employer] Address [address] [facility] 7t [place] [address] Care Team Providers Care Loss Prevention/Safety District Manager Name Role Phone Alfonso Cuello Primary Care Provider Unavail Sarah Suárez Primary Care Provider [phone] Myla Subramanian MD Primary Care Provide r Encounter Details Date Type Department Care Team (Late st Contact Info) Description 09/13/2022 Telephone [facility] MED[facility] [address] [place] [address] Alfonso Cuello AGNP Social History Tobacco Use [...] from Emerita Diego RN- Will forward to [facility] nurse to as I am currently working other areas at [facility]. Tc from [facility] requesting status on physician summary form. Pt is currently on hold for [facility] andform needs to be signed by PCP for pt services to be covered. Please contact [facility] at [phone] * Telephone Encounter - Mayra Dandre - 09/13/2022 12:39 PM EDT Tc from [facility] requesting status on physician summary form. Pt is currently on hold for [facility] andform needs to be signed by PCP for pt services to be covered. Please contact [facility] at [phone] documented in this encounter Plan of Treatment Upcoming Encounters Date Type Department Care Team (Late st Contact Info) Description 12/16/2024 11:30 AM EST Office Visit [facility] [address] [place] [address] Myla Subramanian MD [address] [place] [address] 01/03/2025 9:30 AM EST Office Visit [facility] ADULT DENTAL [address] [place] [address] Rowena Villatoro DDS [address] [place] [address] 05/22/2025 10:15 AM EDT Office Visit [facility] ADULT DENTAL [address] [place] [address] Ruth Vega [address] [place] [address] documented as of this encounter Visit Diagnoses Not on filedocumented in this encounter Additional Health Concerns Assessment Noted Time PHQ-9 Depression Total Score: 6 05/28/19 23 9:06 AM EDT documented as of this encounter Care Teams Loss Prevention/Safety District Manager Relationship Specialty Start Date End Date Alfonso Cuello AGNP PCP - General Family Medicine 11/16/21 10/27/22 Sarah Sargent FNP [address] [place] [address] PCP - General Family Medicine 10/28/22 02/09/23 Myla Subramanian MD [address] [place] [address] PCP - General Internal Medicine 02/10/23 documented as of this encounter
--- OUTSIDE RECORDS SUMMARY | 2024-12-13 13:53 | XMS_ITS | Encounter Summary ---
Author Organization [employer] Address [address] [facility] [address] [place] [address] Care Team Providers Care Corporate Ethics Officer Name Role Phone Myla Subramanian MD Primary Care Provide r Reason for Visit * Reason Comments Med Refill Encounter Details Date Type Department Care Team ([facility] Contact Info) Description 09/01/2023 Refill [facility] [address] [place], [place] [phone] Myla Subramanian MD [address] [place], [place] [phone] Abscess Social History Tobacco Use Types Packs/Day [...] Description 12/16/2024 11:30 AM EST Office Visit [facility] [address] [place] [address] Myla Subramanian MD [address] [place] [address] 01/03/2025 9:30 AM EST Office Visit [facility] ADULT DENTAL [address] [place] [address] Rowena Villatoro, DDS [address] [place] [address] 05/22/2025 10:15 AM EDT Office Visit [facility] ADULT DENT[facility] [address] [place] [address] Howard Vegaaris [address] [place] [address] documented as of this encounter Visit Diagnoses Diagnosis Abscess Cellulitis and abscess of unspecified site documented in this encounter Additional Health Concerns Assessment Noted Time PHQ-9 Depression Total Score: 8 07/13/19 24 10:06 AM EDT documented as of this encounter Care Teams Corporate Ethics Officer Relationship Specialty Start Date End Date Myla Subramanian MD [address] [place] [phone] PCP - General Internal Medicine 02/10/23 documented as of this encounter
--- OUTSIDE RECORDS SUMMARY | 2024-12-13 13:53 | XMS_ITS | Encounter Summary ---
Author Organization [employer] Address [address] [facility] 7t [place] [address] Care Team Providers Care Fermentation Engineer Name Role Phone Alfonso Cuello AGNLogan Primary Care Provider Unavail Sarah Suárez Primary Care Provider [phone] Myla Subarmanian MD Primary Care Provide r Encounter Details Date Type Department Care Team (Late st Contact Info) Description 01/05/2022 Abstract [facility] ADULT DENTAL [address] [place] [address] Dental, Provider, DDS Social History Tobacco Use [...] Description 12/16/2024 11:30 AM EST Office Visit [facility] MED[facility]INE [address] [place] [address] Myla Subramanian MD [address] [place] [address] 01/03/2025 9:30 AM EST Office Visit [facility] ADULT DENTAL [address] [place] [address] Rowena Villatoro DDS [address] [place] [address] 05/22/2025 10:15 AM EDT Office Visit [facility] ADULT DENTAL [address] [place] [address] Ruth Vega [address] [place] [address] documented as of this encounter Procedures Procedure [...] on filedocumented in this encounter Care Teams Fermentation Engineer Relationship Specialty Start Date End Date Alfonso Cuello AGNP PCP - General Family Medicine 11/16/21 10/27/22 Sarah Sargent FNP [address] [place] [address] PCP - General Family Medicine 10/28/22 02/09/23 Myla Subramanian MD [address] [place] [address] PCP - General Internal Medicine 02/10/23 documented as of this encounter
--- OUTSIDE RECORDS SUMMARY | 2024-12-13 13:53 | XMS_ITS | Encounter Summary ---
Author Organization [employer] Address [address] [facility] [address] [place] [address] Care Team Providers Care Pit Crew Support Worker Name Role Phone Myla Subramanian MD Primary Care Provide r Reason for Visit * Reason Comments Pre-visit Planning LVM Encounter Details Date Type Department Care Team ([facility] Contact Info) Description 12/09/2024 Patient Outreach [facility] MEDICINE [address] [place] [address] Myla Subramanian MD [address] [place] [address] Pre-visit Planning (LVM ) Social History Tobacco Use Types Packs/Day [...] AM EDT documented as of this encounter Progress Notes * Concetta An - 12/09/2024 4:04 PM EDT ANNABEL Alford placed outbound call to patient to complete pre-visit planning. No answer at this time. Patient name and were not confirmed. CC left voicemail requesting return call. Direct contactinformation provided. documented in this encounter Plan of Treatment Upcoming Encounters Date Type Department Care Team (Late st Contact Info) Description 12/16/2024 11:30 AM EST Office Visit [facility] MEDICINE [address] [place] [address] Myla Subramanian MD [address] [place] [address] 01/03/2025 9:30 AM EST Office Visit [facility] ADULT DENTAL [address] [place] [address] Rowena Villatoro DDS [address] [place] [address] 05/22/2025 10:15 AM EDT Office Visit [facility] ADULT DENTAL [address] [place] [address] Ruth Vega [address] [place] [address] documented as of this encounter Visit Diagnoses Not on filedocumented in this encounter Additional Health Concerns Assessment Noted Time PHQ-9 Depression Total Score: 8 07/13/19 24 10:06 AM EDT documented as of this encounter Care Teams Pit Crew Support Worker Relationship Specialty Start Date End Date Myla Subramanian MD [address] [place] [address] PCP - General Internal Medicine 02/10/23 documented as of this encounter
--- OUTSIDE RECORDS SUMMARY | 2024-12-13 13:53 | XMS_ITS | Encounter Summary ---
Author Organization [employer] Address [address] [facility] [place] [address] Care Team Providers Care Doctor Of Naturopathic Medicine Name Role Phone Myla Subramanian MD Primary Care Provide r Reason for Visit * Reason Onset Date Comments telephone call 12/10/2024 Encounter Details Date Type Department Care Team ([facility] Contact Info) Description 12/10/2024 Telephone [facility] MEDICINE [address] [place] [address] Myla Subramanian MD [address] [place] [address] telephone call Social History Tobacco Use Types Packs/Day Years [...] encounter Miscellaneous Notes * Telephone Encounter - Noemi Shepherd - 12/10/2024 8:50 AM EDT Pt walked in requesting a call back regarding your message from yesterday. documented in this encounter Plan of Treatment Upcoming Encounters Date Type Department Care Team (Late st Contact Info) Description 12/16/2024 11:30 AM EST Office Visit [facility] MEDICINE [address] [place] [address] Myla Subramanian MD [address] [place] [address] 01/03/2025 9:30 AM EST Office Visit [facility] ADULT DENTAL [address] [place] [address] Rowena Villatoro, DDS [address] [place] [address] 05/22/2025 10:15 AM EDT Office Visit [facility] ADULT DENTAL [address] [place] [address] Ruth Vega [address] [place] [address] documented as of this encounter Visit Diagnoses Not on filedocumented in this encounter Additional Health Concerns Assessment Noted Time PHQ-9 Depression Total Score: 8 07/13/19 24 10:06 AM EDT documented as of this encounter Care Teams Doctor Of Naturopathic Medicine Relationship Specialty Start Date End Date Myla Subramanian MD [address] [place] [address] PCP - General Internal Medicine 02/10/23 documented as of this encounter
== END 2024-12-13 12:43 | disposition home or self-care (01) ==
LOC: HO.HAP 12:42
PROVIDERS: Visit Provider Emergency Medicine
DX: Z46.1 Encounter for fitting and adjustment of hearing aid (principal); H90.3 Sensorineural hearing loss, bilateral
CPT/HCPCS: V5266

== ENCOUNTER 2024-12-25 14:18 | Emergency (ER) | payer MEDICARE, MEDICAID, SELFPAY ==
--- OUTSIDE RECORDS SUMMARY | 2018-06-01 03:00 | XMS_ITS | Continuity of Care Document ---
Author Organization [facility] Anjum Willard MD, [facility] Address [address] [place] [address] Phone Care Team Providers Care Paralegals Name Role Phone Radiology, MMGR Unavailable Unavailable Procedures Procedure Date VOID Advance Directives Directive Yes / No Effective Date File Name No Information Encounters Encounter Description Practice Location Reason(s) For Visit Diagnoses Date Provider Providers Copied on Encounter [facility], [address], [place], [id number], tel:[phone] [facility] No Information Radiology MMGR. . Referring Provider: Elvin Carbajal MD A, [address] [address], [place], [address]. tel:[phone] Family History Family Member Type Diagnosis Age At Onset No Information Payers Payer name Insurance type Covered republican ID Authoriza tion(s) No Information Social History Type Description Quantity Date Captured Comments Sex Male Smoking Status No Information Chief Complaint And Reason For Visit No Information Reason For Referral Reason For Referral No Information History Of Present Illness Encounter Date Complaint History Of Prese nt Illness No Information Functional Status Date Functional Assessmen t No Information Instructions Date Instruction Additional Infor mation No Information Assessments Type Assessment Date No Information Patient Care Teams Name Effective Dates (start - stop) Status Members No Information
[2024-12-25 14:21] VITALS: BP 137/80; PULSE 80; RESP 16; TEMP 37; O2SAT 98
--- NOTE | 2024-12-25 14:28 | ED.EAR ---
HPI - Ear Problem General Chief complaint: Ear Problems Stated complaint: ear bud stuck in ear Time Seen by Provider: 12/25/24 14:25 Source: patient and family Mode of arrival: ambulatory Limitations: no limitations History of Present Illness ED Provider: FELI BONILLA PA-C HPI Narrative: 64 year old male presents to the ED today with concerns of head phone stuck in his right ear canal. Patient states that [employer]HWALL [employer] in ED today, he was listening to music, ripped his head phone out of his right ear and noticed the rubber end of the head phone was missing. He assumed it became stuck in his ear. He has been sticking his finger in his right ear attempting to remove it. No other concerns/complaints. No hearing changes. Related Data Home Medications ?Medication ?Instructions ?Recorded ?Confirmed acetaminophen 325 mg capsule 325 mg PO QID PRN 11/24/20 07/02/24 atorvastatin 10 mg tablet 10 mg PO BEDTIME 11/24/20 07/02/24 lisinopril 10 1 tab PO DAILY 03/26/21 07/02/24 mg-hydrochlorothiazide 12.5 mg tablet gabapentin 300 mg capsule 300 mg PO BEDTIME 07/02/24 07/02/24 Allergies Allergy/AdvReac Type Severity Reaction Status Date / Time Penicillins Allergy Unknown N/A Verified 12/25/24 14:25 Review of Systems Review of Systems: Yes all other systems are reviewed and are negative PMFSH Past Medical History Attestation statement: The following information was validated with the patient. Source: old records reviewed and nursing notes reviewed Medical History Personal history of nicotine dependence Sensorineural hearing loss (SNHL) of both ears Chronic pain syndrome Degeneration, intervertebral disc, cervical High blood pressure Muscle pain High cholesterol Social History Social History Patient Tobacco Use Status: Former Tobacco user Advance Directives: No Advance Directives Information Provided: Yes Current occupational status: disabled Current occupation: rt hand Physical Exam Vital Signs: Vital Signs: Last Vital Signs Temp 98.6 F 12/25/24 14:21 Pulse 80 12/25/24 14:21 Resp 16 12/25/24 14:21 BP 137/80 12/25/24 14:21 Pulse Ox 98 12/25/24 14:21 O2 Del Method Room Air 12/25/24 14:21 BMI result Body Mass Index 0.0 vital signs stable General: Well appearing, in no acute distress. Skin: Warm, dry, intact. No rashes or lesions. Head: Normocephalic, atraumatic. EENT: Conjunctiva clear. PERRLA. EOM intact. Moist mucous membranes.? + No pain on manipulation of left pinna or tragus. No protrusion of the auricle. No mastoid tenderness, fluctuance, warmth. Left EAC without erythema, edema or discharge. TM intact without erythema, effusion, or bulging. + No pain on manipulation of right pinna or tragus. No protrusion of the auricle. No mastoid tenderness, fluctuance, warmth. Right EAC with small abrasion, secondary to patient scratching EAC with fingernail. No edema, no discharge. No retained foreign body in EAC. TM intact without erythema, effusion, or bulging. Cardiac: Chest wall symmetric. RRR Lungs: Normal respiratory effort without accessory muscle use. CTA bilaterally Course Course Course Narrative: No retained foreign body in right EAC. I have also checked left, no foreign body. he states it may have fallen out on his bed at home. Patient has remained stable throughout ED visit today. Discussed worrisome signs and symptoms and when to return to the ED. All questions answered at this time. Patient is agreeable with disposition and stable for discharge. Medical Decision Making Medical Decision Making MDM Narrative: 64 year old male presents to the ED today with concerns of head phone stuck in his right ear canal. vitals are stable. he is well appearing, on exam, No pain on manipulation of right pinna or tragus. No protrusion of the auricle. No mastoid tenderness, fluctuance, warmth. Right EAC with small abrasion, secondary to patient scratching EAC with fingernail. No edema, no discharge. No retained foreign body in EAC. TM intact without erythema, effusion, or bulging. Differential diagnosis includes retained foreign body, abrasion to ear canal. Unlikely otitis media, otitis externa, TM perforation. Plan for discharge. Differential Diagnosis Differential Diagnoses: The differential diagnosis associated with the presentation includes as above. Admission/Observation not indicated. Critical Care Time Critical Care Time Critical Care Time: No Discharge Plan Discharge Clinical Impression: Abrasion of right ear canal Patient Disposition: Home, Self-Care Instructions: Ear Abrasion (ED) Additional Instructions: You were evaluated in the ED for concerns of head phone stuck in your right ear. We have evaluated you, there is no head phone in your ear canal. You have a small abrasion to your ear canal from sticking your finger in your ear. Do not stick anything else in your ear canal. Follow up with PCP. Return with any new/ worsening symptoms. In the case of an emergency call 911. Prescriptions: No Action lisinopril-hydrochlorothiazide 10-12.5 mg tablet 1 tab PO DAILY atorvastatin 10 mg tablet 10 mg PO BEDTIME acetaminophen 325 mg capsule 325 mg PO QID PRN gabapentin 300 mg capsule 300 mg PO BEDTIME Discharge Date/Time: 12/25/24 14:30 Print Language: Sami
--- OUTSIDE RECORDS SUMMARY | 2024-12-25 17:55 | XMS_ITS | Encounter Summary ---
Author Organization [employer] Address [address] [facility] [address] [place] [address] Care Team Providers Care Gizzard Peeler Name Role Phone Alfonso Cuello Primary Care Provider Unavail Sarah Suárez Primary Care Provider [phone] Myla Subramanian MD Primary Care Provide r Encounter Details Date Type Department Care Team (Late st Contact Info) Description 09/13/2022 Telephone [facility] MEDICINE [address] [place] [address] Alfonso Cuello AGNP Social History Tobacco Use [...] from Emerita Diego RN- Will forward to [facility] VNA nurse to as I am currently working other areas at [facility]. Tc from [facility] requesting status on physician summary form. Pt is currently on hold for [facility] andform needs to be signed by PCP for pt services to be covered. Please contact [facility] at [phone] * Telephone Encounter - Mayra Dandre - 09/13/2022 12:39 PM EDT Tc from [facility] requesting status on physician summary form. Pt is currently on hold for [facility] andform needs to be signed by PCP for pt services to be covered. Please contact beti at [phone] documented in this encounter Plan of Treatment Upcoming Encounters Date Type Department Care Team (Late st Contact Info) Description 01/03/2025 9:30 AM EST Office Visit [facility] ADULT DENTAL [address] [place] [address] Rowena Villatoro DDS [address] [place] [address] 05/22/2025 10:15 AM EDT Office Visit [facility] ADULT DENTAL [address] [place] [address] Gary Ruth [address] [place] [address] documented as of this encounter Visit Diagnoses Not on filedocumented in this encounter Additional Health Concerns Assessment Noted Time PHQ-9 Depression Total Score: 6 05/28/19 23 9:06 AM EDT documented as of this encounter Care Teams Gizzard Peeler Relationship Specialty Start Date End Date Alfonso Cuello AGNP PCP - General Family Medicine 11/16/21 10/27/22 Sarah Sargent FNP [address] [place] [address] PCP - General Family Medicine 10/28/22 02/09/23 Myla Subramanian MD [address] [place] [id number] PCP - General Internal Medicine 02/10/23 documented as of this encounter
--- OUTSIDE RECORDS SUMMARY | 2024-12-25 17:55 | XMS_ITS | Encounter Summary ---
Author Organization [employer] Address [address] [facility] [address] [place] [address] Care Team Providers Care Gasoline Service Attendant Name Role Phone Myla Subramanian MD Primary Care Provide r Reason for Visit * Reason Comments Med Refill Encounter Details Date Type Department Care Team ([facility] Contact Info) Description 09/01/2023 Refill [facility] MEDICINE [address] [place], [place] [phone] Myla Subramanian MD [address] [place], [place] [phone] Abscess Social History Tobacco Use Types Packs/Day [...] Description 01/03/2025 9:30 AM EST Office Visit [facility] ADULT DENTAL [address] [place] [address] Rowena Villatoro, DDS [address] [place] [address] 05/22/2025 10:15 AM EDT Office Visit [facility] ADULT DENTAL [address] [place] [address] Gary, Ruth [address] [place] [address] documented as of this encounter Visit Diagnoses Diagnosis Abscess Cellulitis and abscess of unspecified site documented in this encounter Additional Health Concerns Assessment Noted Time PHQ-9 Depression Total Score: 8 07/13/19 24 10:06 AM EDT documented as of this encounter Care Teams Gasoline Service Attendant Relationship Specialty Start Date End Date Myla Subramanian MD [address] [place] [id number] PCP - General Internal Medicine 02/10/23 documented as of this encounter
--- OUTSIDE RECORDS SUMMARY | 2024-12-25 17:55 | XMS_ITS | Encounter Summary ---
Author Organization [employer] [facility] Address [address] [facility] [address] [place] [address] Care Team Providers Care Enrobing Machine Corder Name Role Phone Alfonso Cuello AGNLogan Primary Care Provider Unavail Sarah Suárez Primary Care Provider [phone] Myla Subramanian MD Primary Care Provide r Encounter Details Date Type Department Care Team ([facility] Contact Info) Description 04/15/2022 Abstract [facility] ADULT DENTAL [address] [place] [address] Rowena Villatoro DDS [address] [place] [address] Social History Tobacco Use Types Packs/Day Years [...] Upcoming Encounters Date Type Department Care Team ([facility] Contact Info) Description 01/03/2025 9:30 AM EST Office Visit [facility] ADULT DENTAL [address] [place] [address] Rowena Villatoro DDS [address] [place] [address] 05/22/2025 10:15 AM EDT Office Visit [facility] ADULT DENTAL [address] [place] [address] Ruth Vega [address] [place] [address] documented as of this encounter Visit Diagnoses Not on filedocumented in this encounter Care Teams Enrobing Machine Corder Relationship Specialty Start Date End Date Alfonso Cuello AGNP PCP - General Family Medicine 11/16/21 10/27/22 Sarah Sargent FNP [address] [place] [address] PCP - General Family Medicine 10/28/22 02/09/23 Myla Subramanian MD [address] [place] [id number] PCP - General Internal Medicine 02/10/23 documented as of this encounter
--- OUTSIDE RECORDS SUMMARY | 2024-12-25 17:55 | XMS_ITS | Clinical Summary ---
Author Organization [employer] Address [address] [facility] 7t [place] [address] Care Team Providers Care Clerical Stock Inspector Name Role Phone Myla Subramanian MD Primary Care Provide r Allergies Active Allergy Reactions Criticality Noted Date Comments Aspirin 01/13/2022 Penicillin G 07/20/2020 Other reaction(s): Hives / Skin Rash Squid Oil 04/10/2023 Medications cetirizine (ZyrTEC) 10 MG tabletIndicatio ns:Atopic dermatitis, [...] daily. 100 g 11 09/11/19 25 Active lisinopril-hydr oCHLOROthiazide 20-12.5 MG tabletIndicatio ns:Essential hypertension Take 1 tablet by mouth in the morning. 90 tablet 1 12/17/19 25 Active atorvastatin (Lipitor) 40 MG tabletIndicatio ns:Essential hypertension Take 1 tablet (40 mg) by mouth Once per day. 30 tablet 11 12/17/19 25 2025 Active acetaminophen (Tylenol Extra Strength) 500 MG tabletIndicatio ns:Polyarthralg ia Take 2 tablets (1,000 mg) by mouth every 8 (eight) hours if needed for moderate pain for up to 20 days. 60 tablet 1 12/17/19 25 2024 Active gabapentin (Neurontin) 300 MG capsuleIndicati ons:Pain TAKE 1 CAPSULE BY MOUTH EVERY DAY AT BEDTIME 90 capsule 1 12/17/19 Active Diclofenac Sodium 1 % gelIndications: Polyarthralgia Apply 1 Application topically every 12 (twelve) hours if needed (use on affected julianna if needd). 100 g 2 12/17/19 Active gabapentin (Neurontin) 300 MG capsuleIndicati ons:Pain TAKE 1 CAPSULE BY MOUTH EVERY DAY AT BEDTIME 90 capsule 1 10/02/19 25 2024 Discontinued(R eorder (will not trigger notification to Pharmacy)) lisinopril-hydr oCHLOROthiazide 20-12.5 MG tabletIndicatio ns:Essential hypertension Take 1 tablet by mouth in the morning. 90 tablet 1 10/01/19 25 2024 Discontinued(R eorder (will not trigger notification to Pharmacy)) Active Problems Problem Noted Date Diagnosed Date Polyarthralgia 12/16/2024 Diminished vision 09/10/2024 Gingival recession, localized 05/09/2024 Other chest pain 02/12/2024 Assessment & Plan (02/12/2024 4:17 PM EST): Cardiology referral Other atopic dermatitis 02/12/2024 Assessment & Plan (02/12/2024 4:17 PM EST): Triamcinolone and Banophen prescribed I will refer him to allergy and forest fire prevention specialist Gastroesophageal reflux disease without esophagi tis [...] problem persist or worse come to [facility] possible referral to surgery Cognitive impairment 07/13/2023 Assessment & Plan (07/13/2023 11:03 AM EDT): I will call and find out why his PERSONNEL COUNSELOR hours where reduced Dental plaque 06/20/2023 Teeth [...] has a colon[place] scheduled [place] [facility] Assessment & Plan (05/27/2022 9:43 AM EDT): Previous referrals: Audiology: 05/16/22 last appointment, doesn't remember name of audiology next appointment june 15. Gastro: waiting on appointment, [facility] PT: waiting on appointment, [facility] Optometry: Never got a call, new referral [...] as prescribe Prediabetes 01/29/2021 Assessment & Plan (12/16/2024 3:29 PM EST): Today extensive discussion was done about life style modifications I advise healthy diet (low calorie) and cardiovascular exercise Assessment & Plan (09/10/2024 2:01 PM EDT): [...] Encounters Date Type Department Care Team Description 12/16/2024 11:30 AM EST Office Visit [address] [address] Myla Subramanian MD Essential hypertension; Prediabetes; Polyarthralgia; Pain; Encounter for immunization 12/16/2024 Travel 12/14/2024 Telephone [facility] [address] [place] [phone] Myla Subramanian MD Chart Prep 12/10/[address] [address] Myla Subramanian MD telephone call 12/09/2024 Patient Outreach [address] [address] Myla Subramanian MD Pre-visit Planning (LVM ) 12/09/2024 Telephone [facility] [address] [place] [phone] Rowena Villatoro, DDS 12/03/2024 Outside Procedure [facility] [address] [place] [phone] Manuel Chauhann, OD Presbyopia (Primary Dx) 12/02/2024 2:00 PM EDT Office Visit [facility] [address] [place] [phone] Manuel Chauhann, OD Hyperopia of both eyes (Primary Dx) 11/15/2024 10:15 AM EDT Office Visit [facility] [address] [place] [phone] GaryRuth Dental plaque (Primary Dx); Teeth missing 10/25/2024 3:00 PM EDT Office Visit [facility] [address] [place] [phone] Manuel Chauhann, OD Combined forms of age-related cataract of both eyes (Primary Dx); Suspicious optic nerve cupping of both eyes; Presbyopia 10/25/2024 Travel 09/30/2024 Refill [facility] [address] [place] [address] Myla Subramanian MD Essential hypertension 09/30/2024 Refill [facility] [address] [place] [address] Myla Subramanian MD Pain from Last 3 Months Immunizations Immunization Administration Dates Next Due Influenza Injectable Quadriv alant Preservative Free IIV4 MDCK 11/05/2021 Influenza injectable quadriv alent preservative free 04/10/2023,01/25/2021,11/08/2019 Influenza, seasonal, injecta ble, preservative free 02/12/2024 Moderna Covid-19 Vaccine 12+ 01/28/2021,07/18/19 21,06/19/2020 Moderna Covid-19 Vaccine 6+ Bivalent 03/03/2022 Pneumococcal Conjugate PCV 20 12/16/2024 RSV Bivalent 04/14/2023 Tdap 11/05/2021 Zoster, Recombinant 11/05/2021,08/05/2021 Social History Tobacco Use Types Packs/Day Years Used Date Smoking Tobacco: Never Passive Smoke Exposure: Never Smokeless Tobacco: Never Tobacco Cessation:Counseling Given: Not Answered Alcohol Use Standard Drinks/Week Comments Never 0 (1 standard drink = 0.6 oz pur e alcohol) Depression Answer Date Recorded Patient Health Questionnaire-9 Score 3 12/16/2024 Patient Health Questionnaire-9 Score 3 12/16/2024 Last PHQ-9: Questionnaire Data Not on file 1 02/16/2024 Housing Stability Answer Date Recorded What is your housing situation today? I have trace sing 05/02/[address] you li [...] Answer Date Recorded Patient Health Questionnaire-2 Score 1 12/16/2024 Internet Access Answer Date Recorded Internet Access [...] Sign Reading Time Taken Comments Blood Pressure 128/76 12/16/2024 11:43 AM EST Pulse 83 12/16/2024 11:43 AM EST Temperature 36.1 C (96.9 F) 12/16/2024 11:43 AM EST Respiratory Rate 20 12/16/2024 11:43 AM EST Oxygen Saturation 99% 12/16/2024 11:43 AM EST Inhaled Oxygen Concentration - - Weight 55.9 kg (123 lb 3.2 oz) 12/16/2024 11:43 AM EST Height 167.6 cm (5' 6 ) 12/16/2024 11:43 AM EST Body Mass Index 19.89 12/16/2024 11:43 AM EST Plan of Treatment Upcoming Encounters Date Type Department Care Team (Late st Contact Info) Description 01/03/2025 9:30 AM EST Office Visit [facility] [address] [place] [address] Rowena Villatoro DDS [address] [place] [address] 05/22/2025 10:15 AM EDT Office Visit [facility] [address] [place] [address] Ruth Vega [address] [place] [address] Health Maintenance Due Date Last Done Comments Anal Pap 1960 CT Colonography 1960 Colonoscopy 1960 FIT 1960 Sigmoidoscopy 1960 Hepatitis A Vaccines (1 of 2 - Risk 2-dose series) 02/04/1979 Hepatitis B Vaccines (1 of 3 - Risk 3-dose series) 2020 COVID-19 Vaccine ( season) 2024 03/03/2022, 01/28/2021, [...] Additional history exists Disability Screening 09/10/2025 09/10/2024 Depression Screening 12/16/2025 12/16/2024, 12/17/19 25 Tobacco Screening 12/16/2025 12/16/2024 Colorectal Cancer Screening 10/22/2026 FIT DNA/Cologuard 10/22/2026 10/23/2023 Dental X-Ray: Full Mouth 05/11/2027 05/09/2024, 11/14 Lipid Panel 05/14/2029 05/14/2024, 03/16, 11/24/2021, Additional history exists DTaP/Tdap/Td Vaccines (2 - Td or Tdap) 11/06/2031 11/05/2021 HIV Screening Completed 08/04/2021 Zoster Vaccines Completed 11/05/2021, 08/05/2021 Hepatitis C Screening Completed 07/22/2022, 022 RSV Patients and Patients Aged 60 years or older Completed 04/14/2023 Pneumococcal Vaccine: 50+ Years Completed 12/16/2024 HIB Vaccines Aged Out No longer eligi [...] - Both Eyes (10/25/2024 3:00 PM EDT) Lamonte Farzana Chauhan, OD - 10/28/2024 2:59 PM EDT Images [...] a complete eye exam and repeat OCT. us Farzana Chauhan OD OPHTH TOMOGRAPHY Final Result * (ABNORMAL) POCT HGB A1C (09/10/2024 11:33 AM EDT) Hemoglobin A1C 5.8(A) 4.0 - 5.7 % QC Media Lot # [id number] Lot# Expiration Date [id number] Blood 09/10/2024 11:3 3 AM EDT Myla Sena MD POINT OF CARE TEST EN TER/EDIT ORDERABLES Final Result * (ABNORMAL) Lipid Panel, Standard (05/14/2024 8:12 AM EDT) Triglycerides 66 <150 mg/dL [facility] Comment:Desirable Triglyceri de: less than [...] 190 mg/dL HDL Cholesterol 71 >40 mg/dL [facility] Comment:Desirable HDL: great er than 40 mg/dL Note: This HDL assay may give artificially low results in patients with liver disease. Blood Venous blood specimen / Unknown 05/14/2024 8:12 AM EDT 05/14/2024 11:21 AM EDT Myla Sena MD LAB BLOOD ORDERABLES Final Result [facility] [address] [place] [phone] * Cologuard?? colon cancer screening (10/23/2023 7:07 AM EDT) Cologuard Result Negative Negative 10/26/19 10:15 PM EDT [facility] (CLIA #:[id number]) Comment: NEGATIVE TEST RESULT. A negative Cologuard [...] (Nelia Huang al, N Engl J Med 2014;370(14):6916-3228) The normal value (reference range) for this assay is negative. COLOGUARD RE-SCREENING RECOMMENDATION: Periodic colorectal cancer screening is an important part of preventive healthcare for asymptomatic individuals at average risk for colorectal cancer. Following a negative Cologuard result, the [place] Cancer Society and U.S. Multi-Society Task Force screening guidelines recommend a Cologuard re-screening interval of 3 years. References: [place] [employer] Society Guideline for Colorectal Cancer Screening: https://www.cancer.org/cancer/vxlek-zliqdt-bxaode/kxdxgzrje-ebkwyuuwq-ryvsqtm/ac s-rec ommendations.html.; José DK, Bryce FRASER, Ashley BhaktaK, Colorectal Cancer Screening: Recommendations for Physicians and Patients from the U.S. Multi-Society Task Force on Colorectal Cancer Screening , Am J Gastroenterology 2017; 112:0496-0888. TEST DESCRIPTION: Composite algorithmic analysis of stool [...] (Nelia Huang al, N Engl J Med 2014;370(14):6772-5761.) Cologuard may produce a false negative or false positive result (no colorectal cancer or precancerous polyp present at colonoscopy follow up). A negative Cologuard test result does not guarantee the absence of CRC or advanced adenoma (pre-cancer). The current Cologuard screening interval is every 3 years. ([place] Cancer Society and U.S. Multi-Society Task Force). Cologuard performance data in a 10,000 patient pivotal study using colonoscopy as the reference method can be accessed at the following location: www.Foodoro.Edmodo/results. Additional description of the Cologuard test process, warnings and precautions can be found at www.colImmediatelyrd.com. Stool specimen (specimen) 10/23/2023 7:07 AM EDT 10/24/2023 2:06 PM EDT Myla Sena MD LAB MOLECULAR DIAGNOS TICS ORDERABLES Final Result Performing Organization Address City/[facility] [[email or web address]] Co de Phone Number [facility] (CLIA #:[id number]) [place] [address], [place] [phone] * Hepatitis C Antibody with Reflex to HCV, RNA, Quantitative, Real-Time PCR (07/22/2022 9:31 AM EDT) Hepatitis C Antibody NON-REACT DEONDRE NON-REACT DEONDRE [employer] Index 0.07 <1.00 [employer] Comment: HCV antibody was non-reactive. There is no laboratory evidence of HCV infection. In most cases, no further action is required. However, if recent HCV exposure is suspected, a test for HCV RNA (test code 97920) is suggested. For additional information please refer to http://education.SweetLabs.Edmodo/faq/RCG64k2 (This link is being provided for informational/ educational purposes only.) Blood Venous blood specimen / Unknown 07/22/2022 9:31 AM EDT 07/22/2022 9:31 AM EDT Narrative [facility] - 07/23/2022 12:54 AM EDT FASTING:NO FASTING: NO Alfonso MENDOZA LAB BLOOD ORDERABLES Final Res ult Performing Organization Address City/[facility]/ZIP Co de Phone Number [facility] [address] [place] [address], [place] [address] [employer] [address] [place] [address] * HIV 1/2 ANTIGEN/ANTIBODY,FOURTH GENERATION W/RFL (08/04/2021 10:05 AM EDT) HIV-1/2 ANTIGEN AND ANTIBODIES, 4TH GENERATION W/ REFLEX NON-REACT DEONDRE NON-REACT DEONDRE [facility] Comment: HIV-1 antigen and HIV-1/HIV-2 [...] purpose. For additional information please refer to http://education.Buzzoole/faq/YCM040 (This link is being provided for informational/ educational purposes only.) The performance of this assay has not been clinically validated in patients less than 2 years old. 08/04/2021 10:0 5 AM EDT us Tresa Paz FIELD ENUMERATOR LAB BLOOD ORDERABLES Final Resu lt [facility] [address] from Last 3 Months or Most Recently Relevant to Health Maintenance Insurance [address] [place] [id number] [facility] STANDARD MEDICARE [place] ST[place] ADULT Care Teams Clerical Stock Inspector Relationship Specialty Start Date End Date Myla Subramanian MD [address] [place] [phone] PCP - General Internal Medicine 02/10/23
--- OUTSIDE RECORDS SUMMARY | 2024-12-25 17:55 | XMS_ITS | Encounter Summary ---
Author Organization [employer] Address [address] [facility] [address] 7[address] [place] [address] Care Team Providers Care Historical Site Guide Name Role Phone Myla Subramanian MD Primary Care Provide r Reason for Visit * Reason Comments Med Refill Encounter Details Date Type Department Care Team ([facility] Contact Info) Description 07/13/2023 Refill [facility] [address] [place] [address] Sarah Sargent FNP [address] [place] [address] Essential hypertension Social History Tobacco Use Types [...] 10:06 AM EDT Haim Collier MA * How difficult have these problems made it for you to do your work, take care of things at home, or get along with other people? Answer Date of Assessment Author Not difficult at all 07/13/2023 10:06 AM EDT Haim Moffett MA * Over the last 2 weeks, how often have you been bothered by any of the following problems? Question Answer Date of Assessment Author Feeling nervous, anxious, or on edge 1 07/13/2023 10:06 AM Haim Francis MA Not being able to stop or co ntrol worrying 0 07/13/2023 10:06 AM Haim Francis MA Worrying too much about diff erent things 1 07/13/2023 10:06 AM Haim Francis MA Trouble relaxing 1 07/13/2023 10:06 AM Haim Francis MA Being so restless that it is hard to sit still 0 07/13/2023 10:06 AM Haim Francis MA Becoming easily annoyed or irritable 1 07/13/2023 10:06 AM Haim Francis MA Feeling afraid as if somethi ng [...] Description 01/03/2025 9:30 AM EST Office Visit [facility] [address] [place], [place] [phone] Kaley-Rowena Matos, DDS [address] [place], [place] [phone] 05/22/2025 10:15 AM EDT Office Visit [facility] [address] [place], [place] [phone] Gary Ruth [address] [place], [place] [phone] documented as of this encounter Visit Diagnoses Diagnosis Essential hypertension Unspecified essential hypertension documented in this encounter Additional Health Concerns Assessment Noted Time PHQ-9 Depression Total Score: 8 07/13/19 24 10:06 AM EDT documented as of this encounter Care Teams Historical Site Guide Relationship Specialty Start Date End Date Myla Subramanian MD [address] [place] [address] PCP - General Internal Medicine 02/10/23 documented as of this encounter
--- OUTSIDE RECORDS SUMMARY | 2024-12-25 17:56 | XMS_ITS | Encounter Summary ---
Author Organization [employer] [facility] Address [address] [facility] 7t [place] [address] Care Team Providers Care Sales And Operations Trainee Name Role Phone Alfonso Cuello [employer] Primary Care Provider Unavail Sarah Suárez Primary Care Provider [phone] Myla Subramanian MD Primary Care Provide r Encounter Details Date Type Department Care Team (Late st Contact Info) Description 01/05/2022 Abstract [facility] [address] [place] [address] Dental, Provider, DDS Social History Tobacco Use [...] Description 01/03/2025 9:30 AM EST Office Visit [facility] [address] [place] [address] Roche-Matos, Rowena, DDS [address] [place] [address] 05/22/2025 10:15 AM EDT Office Visit [facility] [address] [place] [address] Ruth Vega [address] [place] [address] documented as of this encounter Procedures Procedure [...] on filedocumented in this encounter Care Teams Sales And Operations Trainee Relationship Specialty Start Date End Date Alfonso Cuello AGNP PCP - General Family Medicine 11/16/21 10/27/22 Sarah Sargent FNP [address] [place] [address] PCP - General Family Medicine 10/28/22 02/09/23 Myla Subramanian MD [address] [place] [address] PCP - General Internal Medicine 02/10/23 documented as of this encounter
== END 2024-12-25 14:30 | disposition home or self-care (01) ==
PROVIDERS: Emergency Provider Emergency Medicine; PCP Internal Medicine
DX: S00.411A Abrasion of right ear, initial encounter (principal); X58.XXXA Exposure to other specified factors, initial encounter; Y93.9 Activity, unspecified; Y92.9 Unspecified place or not applicable
CPT/HCPCS: 99281